=== PATIENT | female | born 1985 | race African-American/Black ===

== ENCOUNTER 2019-08-02 11:33 | Emergency (ER) | payer OTHER, SELFPAY ==
--- NOTE | ~2019-08-02 | XR_ITS ---
EXAMINATION: XR chest 2V DATE: 08/02/2019 11:59 INDICATION: Mid chest pain and shortness of breath, history of pulmonary embolism TECHNIQUE: PA and lateral views of the chest are obtained. COMPARISON: 01/16/2019 FINDINGS: The lungs are free of acute opacities. Linear opacity in the right lung base could reflect atelectasis or scarring. There is no pleural effusion or pneumothorax. The cardiomediastinal silhouet te is normal. The visualized osseous structures are unremarkable. There has been interval insertion o f an inferior vena cava filter. IMPRESSION: 1. No acute cardiopulmonary abnormality. Reviewed, dictated and finalized at location A. ER ROOM HELPER
--- NOTE | ~2019-08-02 | CT_ITS ---
EXAMINATION: CTA chest PE protocol DATE: 08/02/2019 14:59 INDICATION: Pleuritic chest pain. TECHNIQUE: Computed tomography angiography (CTA) of the chest was performed with 100 mL Omnipaque-350 intravenous contrast timed to evaluate the pulmonary arteries. Coronal maximum intensity projection 3D-reconstructions were created by the technologist. Automated exposure control and iterative reconst ruction technique were employed. The dose-length product was 407.56 mGy-cm. COMPARISON: Chest CT 01/11/2019 FINDINGS: The lungs demonstrate mild atelectasis. There are trace pleural effusions. There are nodule s in the thyroid measuring up to 11 mm. The heart size is normal. No pericardial effusion. There is n o pulmonary embolus. There is thoracic dextroscoliosis. IMPRESSION: 1. No pulmonary embolus. 2. Thyroid nodules. Thyroid ultrasound is recommended for risk stratification. Reviewed, dictated and finalized at location A. N TENDER
--- NOTE | 2019-08-02 11:38 | ECG_ITS ---
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
[2019-08-02 11:39] VITALS: BP 115/78; PULSE 94; RESP 16; TEMP 36.2; O2SAT 100
[2019-08-02 12:00] LABS: Basophils Absolute Auto 0.1 K/mm3 (0.0-0.1); Basophils Percent Auto 0.9 % (0.2-1.2); Eosinophils Absolute Auto 0.2 K/mm3 (0-0.3); Eosinophils Percent Auto 2.6 % (0-4.4); Hematocrit 34.4 % (37.0-47.0); Hemoglobin 10.7 g/dL (12.0-15.0); Immature Granulocyte Absolute 0.03 K/mm3 (0.00-0.031); Immature Granulocyte Percent A 0.5 % (0-0.5); Lymphocytes Absolute Auto 1.74 K/mm3 (0.9-3.2); Lymphocytes Percent Auto 26.6 % (18.3-44.2); Mean Corpuscular HGB Conc 31.1 g/dl (32-36); Mean Corpuscular Hemoglobin 25.4 pg (26-34); Mean Corpuscular Volume 81.5 fl (80-100); Mean Platelet Volume 8.7 fl (7.4-10.4); Monocytes Absolute Auto 0.4 K/mm3 (0.1-0.6); Monocytes Percent Auto 6.6 % (2.6-8.5); Neutrophils Absolute Auto 4.1 K/mm3 (1.3-6.7); Neutrophils Percent Auto 62.8 % (45.5-73.1); Platelet Count Result 538 k/mm3 (150-375); Red Blood Count 4.22 M/mm3 (4.2-5.4); Red Cell Distribution Width 18.9 % (11.5-14.5); White Blood Count 6.6 K/mm3 (4.5-10.0)
[2019-08-02 12:14] LABS: Blood Urea Nitrogen 10 mg/dL (7-17); Calcium 9.9 mg/dL (8.4-10.2); Carbon Dioxide 24 mmol/L (22-30); Chloride 99 mmol/L (98-107); Estimated CRCL calculation 96 ml/min; Estimated Glomerular Filt Rate > 60; Glucose 111 mg/dL (65-105); Potassium 4.1 mmol/L (3.4-5.0); Sodium 134 mmol/L (137-145)
[2019-08-02 13:01] LABS: D Dimer 2.17 ug/mL (<0.48)
[2019-08-02 13:12] LABS: Troponin I < 0.012 ng/mL (0.000-0.034)
[2019-08-02 13:46] VITALS: BP 118/70; PULSE 85; RESP 20; O2SAT 100
[2019-08-02 15:56] LABS: Troponin I < 0.012 ng/mL (0.000-0.034)
--- NOTE | 2019-08-02 16:08 | ED.SOB ---
HPI - SOB/Dyspnea General Chief Complaint: Shortness of Breath/Dyspnea Stated Complaint: sob, s/p hyst 07/17/19 Time Seen by Provider: 08/02/19 12:38 Source: patient Mode of arrival: ambulatory Limitations: no limitations History of Present Illness HPI Narrative: This is a 33 year old female that presents to the ER for chest pain since this morning. Reports sharp chest pain on the left side. Reports this is worse with breathing. Reports a history of PE for which she is still taking Lovenox. Reports she has missed some doses of Lovenox recently. Reports a recent abdominal hysterectomy. Also reports some shortness of breath. Denies fever, abdominal pain, nausea, vomiting, dysuria or hematuria. Related Data Home Medications Medication Instructions Recorded Confirmed enoxaparin [Lovenox] 80 mg SUBCUT BID 05/21/19 07/16/19 Iron Infusion 1 dose IV DAILY 07/10/19 07/16/19 ferrous sulfate 324 mg PO BID 07/10/19 07/16/19 Allergies Allergy/AdvReac Type Severity Reaction Status Date / Time No Known Allergies Allergy Verified 08/02/19 11:58 Review of Systems Review of Systems: Narrative: CONSTITUTIONAL: Denies fever CARDIOVASCULAR: Reports chest pain. Denies palpitations, or edema. RESPIRATORY: Reports dyspnea. Denies cough GASTROINTESTINAL: Denies abdominal pain, nausea, vomiting GENITOURINARY: Denies dysuria or hematuria. MUSCULOSKELETAL: Reports back pain, joint pain, and myalgia. All systems reviewed & are unremarkable except as noted in HPI and below PMFSH Past Medical History Medical History (Updated 08/02/19 @ 16:14 by Janet Bailey PA-C) Anemia due to blood loss Pulmonary embolism Pulmonary embolus Uterine fibroid Surgical History Surgical History (Updated 05/21/19 @ 18:12 by Chai Tuttle PA-C) Previous section Social History Social History (Updated 05/21/19 @ 18:12 by Chai Tuttle PA-C) Smoking status: Never smoker Second hand tobacco smoke exposure: No Alcohol intake: former Substance use: never Substance use type: does not use Gender identity (if verbalized by the patient): Female Spiritual care concerns: No Agree to blood products: Yes Exam Narrative: Exam Narrative: GENERAL: Well-appearing, well-nourished, and in no acute distress. HEAD: Normocephalic, atraumatic. EYES: EOMI. ENT: Nares clear, no rhinorrhea or epistaxis. Mucous membranes moist. Oropharynx without tonsillar hypertrophy exudate or other lesions. Bilateral TMs pearly webb non-bulging NECK: Supple. No adenopathy or masses. CHEST: Clear to auscultation. No respiratory distress. No wheezes rales or rhonchi. Tender to palpation of the mid anterior chest wall HEART: Regular rate and rhythm. No murmur heard. Normal peripheral pulses. ABDOMEN: Soft, nontender, nondistended, normal active bowel sounds. Incision well-healed without signs of infection EXTREMITIES: Normal range of motion. No edema. SKIN: Warm, dry, no rash. NEURO: No focal deficits. Alert and oriented x3. PSYCH: Normal mood and affect Course Vital Signs Vital signs: Vital Signs Temperature 97.2 F L 08/02/19 11:39 Pulse Rate 94 08/02/19 11:39 Respiratory Rate 16 08/02/19 11:39 Blood Pressure 115/78 08/02/19 11:39 Pulse Oximetry 100 08/02/19 11:39 Temperature 97.2 F L 08/02/19 11:39 Pulse Rate 85 08/02/19 13:46 Respiratory Rate 20 08/02/19 13:46 Blood Pressure 118/70 08/02/19 13:46 Pulse Oximetry 100 08/02/19 13:46 MDM - SOB/Dyspnea MDM Narrative Medical decision making narrative: Patient presents the emergency department for pleuritic chest pain this morning. Reports history of recent PE. Reports she takes Lovenox for this, but has missed some doses recently. Reports a recent abdominal hysterectomy. Patient is afebrile and nontoxic-appearing. She reports relief of pain after Tylenol. CBC without leukocytosis. Mild anemia with hemoglobin of 10.7. Metabolic panel without acute changes.
[2019-08-02 16:36] VITALS: BP 132/80; PULSE 80; RESP 18; O2SAT 98
== END 2019-08-02 16:37 | disposition home or self-care (01) ==
PROVIDERS: General Practice; Physician Assistant; Emergency Provider Emergency Medicine; PCP Internal Medicine Infectious Disease
DX: R07.89 Other chest pain (principal); E04.1 Nontoxic single thyroid nodule; Z86.711 Personal history of pulmonary embolism; D50.0 Iron deficiency anemia secondary to blood loss (chronic); Z87.891 Personal history of nicotine dependence; Z79.02 Long term (current) use of antithrombotics/antiplatelets; R94.31 Abnormal electrocardiogram [ECG] [EKG]
CPT/HCPCS: 36415; 71046; 71275; 80048; 84484; 85025; 85380; 93005; 96365; 99284; J0131; Q9967

== ENCOUNTER 2020-01-24 13:00 | Outpatient (CLI) | payer OTHER, SELFPAY ==
--- NOTE | ~2020-01-24 | CT_ITS ---
EXAMINATION: CTA chest PE protocol DATE: 01/24/2020 13:39 INDICATION: Chest pain, shortness of breath. History of pulmonary embolus. Covid infection, November 2019 TECHNIQUE: Computed tomography angiography (CTA) of the chest was performed with 100 mL Omnipaque-350 intravenous contrast timed to evaluate the pulmonary arteries. Coronal maximum intensity projection 3D-reconstructions were created by the technologist. Automated exposure control and iterative reconst ruction technique were employed. Exam dose: 565.33 mGy-cm total exam DLP. COMPARISON: 08/02/2019 CT pulmonary scan FINDINGS: There is moderate enhancement of the pulmonary arteries, sufficient for diagnostic purposes . No pulmonary embolism is detected. No thoracic aortic aneurysm or dissection. Cardiomegaly. No pericardial or pleural effusion. No hilar or mediastinal mass lesion or lymphadenopathy. No pulmonary infiltrate or consolidation or pulmonary mass lesion. Included skeletal structures are unremarkable. IMPRESSION: No evidence of pulmonary embolism Reviewed, dictated and finalized at Location A. Reviewed, dictated and finalized at location B.
== END 2020-01-24 13:01 | disposition home or self-care (01) ==
LOC: ANHIMG 13:01
PROVIDERS: PCP Internal Medicine Infectious Disease; Visit Provider Internal Medicine Infectious Disease
DX: Z86.711 Personal history of pulmonary embolism (principal)
CPT/HCPCS: 71275; Q9967

== ENCOUNTER 2021-05-01 09:26 | Emergency (ER) | payer OTHER, SELFPAY ==
[2021-05-01] VITALS (21 sets, daily range): BP systolic 128–156; BP diastolic 93–117; PULSE 74; RESP 17; TEMP 36.7; O2SAT 96–100
--- NOTE | ~2021-05-01 | CT_ITS ---
EXAMINATION: CT abdomen pelvis w con EXAM DATE: 05/01/2021 11:10 INDICATION: Left sided abd pain r/o diverticulitis. TECHNIQUE: Spiral CT of the abdomen and pelvis was performed following intravenous injection of 100 m L Omnipaque 350. Axial, coronal and sagittal images of the abdomen and pelvis were reviewed. The do se-length product (DLP) for this examination was 812.21 mGy-cm. The exposure was tailored according to patient size (auto mA exposure control), and iterative reconstruction (ASIR) was used as additiona l dose reduction technique. There is no prior study for comparison. FINDINGS: The liver, spleen, adrenal glands and pancreas are unremarkable. Gallbladder is unremarkab le. No biliary obstruction. Portal and splenic veins are patent. Kidneys enhance symmetrically. T here is no hydronephrosis. The uterus is not identified and has likely been surgically resected. Le ft ovary measures about 4 cm, within normal size limits with several cystic regions or possibly hydro salpinx. The bladder is unremarkable. There is no retroperitoneal or pelvic lymphadenopathy. IVC f ilter. The appendix is normal. The stomach and small bowel are unremarkable. There is expected amount of c olonic stool. No free intraperitoneal gas. The heart is normal in size. There are no pericardial or pleural effusions. The lung bases are unremarkable. Mild thoracolumbar levoscoliosis. IMPRESSION: Cystic left ovarian appearance, could be physiologic, hemorrhagic cysts, or hydrosalpinx. Reviewed, dictated and finalized at location A. IMPRESSION: Cystic left ovarian appearance, could be physiologic, hemorrhagic c ysts, or hydrosalpinx.
[2021-05-01] MEDS: SODIUM CHLORIDE 0.9% IV 1,000 ML 999 ML IV CONT (10:17)
--- NOTE | 2021-05-01 10:18 | ED.ABDPAIN ---
HPI - Abdominal Pain General Chief Complaint: Abdominal Pain Stated Complaint: abd pain Time Seen by Provider: 05/01/21 09:33 Source: patient History of Present Illness HPI narrative: Patient presents with abdominal pain that started last night but this morning it seemed to be worse so she wanted to come to the ER for evaluation. Pain is primarily on the left side achy, constant, worse with walking around, no radiation. Denies any nausea vomiting or diarrhea. She denies any urinary symptoms. She denies any fevers. Related Data Home Medications Medication Instructions Recorded Confirmed enoxaparin [Lovenox] 80 mg SUBCUT BID 05/21/19 07/16/19 Iron Infusion 1 dose IV DAILY 07/10/19 07/16/19 ferrous sulfate 324 mg PO BID 07/10/19 07/16/19 Allergies Allergy/AdvReac Type Severity Reaction Status Date / Time No Known Allergies Allergy Verified 08/02/19 11:58 Review of Systems Review of Systems: CONSTITUTIONAL: Denies fever, chills, or sweats. EYES: Denies visual changes, redness, or discharge. ENT: Denies rhinorrhea, congestion, sore throat, or otalgia. CARDIOVASCULAR: Denies chest pain, palpitations, or edema. RESPIRATORY: Denies cough or dyspnea. GASTROINTESTINAL: Denies nausea, vomiting, or diarrhea. GENITOURINARY: Denies dysuria or hematuria. SKIN: Denies rash or itching. MUSCULOSKELETAL: Denies back pain, joint pain, or myalgia. NEUROLOGIC: Denies headache, numbness, dizziness, or weakness. PSYCHIATRIC: Denies anxiety or depression. All systems reviewed & are unremarkable except as noted in HPI and below PMFSH Past Medical History Medical History Anemia due to blood loss Pulmonary embolism Pulmonary embolus Uterine fibroid Surgical History Surgical History Previous section Family History Family History Father Diabetes mellitus Social History Social History Smoking status: Never smoker Second hand tobacco smoke exposure: No Alcohol intake: former Substance use: never Substance use type: does not use Gender identity (if verbalized by the patient): Female Spiritual care concerns: No Agree to blood products: Yes Exam Narrative: GENERAL: Well-appearing, well-nourished, and in no acute distress. HEAD: Normocephalic, atraumatic. EYES: PERRLA and EOMI. ENT: Nares clear, no rhinorrhea or epistaxis. Mucous membranes moist. NECK: Supple. No masses. No JVD ABDOMEN: Moderate tenderness in the left abdomen no rebound or guarding soft, nondistended, normal active bowel sounds. EXTREMITIES: Normal range of motion. No edema. SKIN: Warm, dry, no rash. NEURO: No focal deficits. Alert and oriented x3. PSYCH: Normal mood and affect. Course Reevaluation(s) Reevaluation #1: Patient reports feeling improved. Labs and reviewed with patient. Patient comfortable outpatient plan. Date: 05/01/21 Time: 13:36 Vital Signs Vital signs: Vital Signs Pulse Oximetry 97 05/01/21 10:20 Temperature 36.7 C 05/01/21 10:21 Pulse Rate 74 05/01/21 10:21 Respiratory Rate 17 05/01/21 10:21 Blood Pressure 131/115 H 05/01/21 13:46 Pulse Oximetry 99 05/01/21 13:46 MDM - Abdominal Pain MDM Narrative Medical decision making narrative: H&P as above, vss, pt looks clinically well, exam with left-sided abdominal pain, labs clinically unremarkable, img with cystic left ovary, additional labs/img considered, symptomatic relief available as needed, on reevaluation pt continues to looks clinically well. Symptoms may be related to patient's left ovary versus early viral process, dns severe sepsis, severe dehydration, acute abdomen. plan to tx/monitor as op w/ NIGHT TIME NANNY f/u findings/plan discussed with pt, pt agree/comfortable with plan, return precautions given. Patient has establish
[2021-05-01 10:31] LABS: Add Urine Microscopic? YES; Appearance Urine Cloudy (Clear); Bilirubin Urine Negative (Negative); Blood Urine Negative (Negative); Color Urine Yellow (Yellow); Glucose Urine UA Negative (Negative); Ketones Urine Negative (Negative); Leukocyte Esterase Ur Trace LEU/UL (Negative); Mucus Urine Rare /lpf; Nitrate Urine Negative (Negative); Protein Urine Negative (Negative); Specific Grav Ur 1.027 (1.001-1.035); Squamous Epithelial Cell Urine Many /hpf (Few); Urobilinogen Urine Negative mg/dL (<2.0)
[2021-05-01 10:49] LABS: Basophils Percent Auto 0.5 % (0.2-1.2); Eosinophils Absolute Auto 0.1 K/mm3 (0-0.3); Eosinophils Percent Auto 2.3 % (0-4.4); Hematocrit 38.5 % (37.0-47.0); Hemoglobin 13.4 g/dL (12.0-15.0); Lymphocytes Percent Auto 43.1 % (18.3-44.2); Mean Corpuscular HGB Conc 34.8 g/dl (32-36); Mean Corpuscular Hemoglobin 28.9 pg (26-34); Mean Corpuscular Volume 83.2 fl (80-100); Mean Platelet Volume 9.1 fl (7.4-10.4); Monocytes Absolute Auto 0.3 K/mm3 (0.1-0.6); Monocytes Percent Auto 6.9 % (2.6-8.5); Neutrophils Absolute Auto 1.9 K/mm3 (1.3-6.7); Neutrophils Percent Auto 47.2 % (45.5-73.1); Platelet Count Result 235 k/mm3 (150-375); Red Blood Count 4.63 M/mm3 (4.2-5.4); Red Cell Distribution Width 12.8 % (11.5-14.5); White Blood Count 3.9 K/mm3 (4.5-10.0)
[2021-05-01 10:53] LABS: Alanine Aminotransferase 55 U/L (4-35); Albumin Level 4.1 g/dL (3.5-5.1); Alkaline Phosphatase 70 U/L (38-126); Anion Gap 10 mmol/L (8-16); Aspartate Amino Transferase 38 U/L (14-36); Bilirubin,Total 0.6 mg/dL (0.2-1.3); Blood Urea Nitrogen 11 mg/dL (7-17); Calcium 9.2 mg/dL (8.4-10.2); Carbon Dioxide 24 mmol/L (22-30); Chloride 104 mmol/L (98-107); Estimated CRCL calculation 94 ml/min; Estimated Glomerular Filt Rate > 60; Glucose 106 mg/dL (65-110); Lipase 91 U/L (23-300); Potassium 4.1 mmol/L (3.4-5.0); Sodium 138 mmol/L (137-145)
== END 2021-05-01 14:00 | disposition home or self-care (01) ==
PROVIDERS: Emergency Provider Emergency Medicine; PCP Internal Medicine Infectious Disease
DX: R10.9 Unspecified abdominal pain (principal); R11.0 Nausea; Z86.711 Personal history of pulmonary embolism; D50.0 Iron deficiency anemia secondary to blood loss (chronic); R93.89 Abnormal findings on diagnostic imaging of other specified body structures
CPT/HCPCS: 36415; 74177; 80053; 81001; 83690; 85025; 96361; 96374; 99284; J0131; J7030; Q9967

== ENCOUNTER 2021-06-23 23:45 | Inpatient (IN) | payer OTHER, SELFPAY ==
--- NOTE | ~2021-06-23 | CT_ITS ---
EXAMINATION: CT abdomen pelvis w con DATE: 06/24/2021 03:28 INDICATION: Left lower quadrant abdominal pain. TECHNIQUE: Computed tomography (CT) of the abdomen and pelvis was performed with 100 mL Omnipaque 350 intravenous contrast. Automated exposure control and iterative reconstruction technique were employe d. The dose-length product was 781.98 mGy-cm. COMPARISON: CT abdomen and pelvis 05/01/2021 FINDINGS: The visualized portions of the lung bases demonstrate mild atelectasis. No pleural effusion . The heart size is normal. No pericardial effusion. The liver, gallbladder, spleen, pancreas, and ad renal glands are normal. There is a filter in the inferior vena cava. There are cysts in right kidney measuring up to 8 mm. There is a delay left-sided contrast nephrogram. There is asymmetric edema daniel und left kidney. There is mild left hydronephrosis and hydroureter. There is a 9.4 x 6.2 x 5.4 cm mas s of heterogeneous attenuation in left adnexa. There are no dilated loops of bowel. The appendix is n ormal. There are no pathologically enlarged lymph nodes. There is no free intraperitoneal fluid. Ther e is an umbilical hernia containing fat. There is mild lumbar spondylosis. IMPRESSION: 1. 9.4 x 6.2 x 5.4 cm mass in left adnexa, worsened from 05/01/21. The differential diagnosis include s hemorrhagic cyst, neoplasm, and torsion. Surgical evaluation is recommended. 2. Mild left hydronephrosis and hydroureter secondary to mass effect from the left adnexal mass. Reviewed, dictated and finalized at location A. LINING DIPPER IMPRESSION: 1. 9.4 x 6.2 x 5.4 cm mass in left adnexa, worsened from 05/01/21. The differen tial diagnosis includes hemorrhagic cyst, neoplasm, and torsion. Surgical evalu ation is recommended. 2. Mild left hydronephrosis and hydroureter secondary to mass effect from the l eft adnexal mass.
--- NOTE | ~2021-06-23 | US_ITS ---
EXAMINATION: US pelvic limited DATE: 06/24/2021 05:52 INDICATION: Pelvic pain. TECHNIQUE: Multiple transabdominal sonographic images of the pelvis were obtained. COMPARISON: CT abdomen and pelvis 06/24/2021, 05/01/2021 FINDINGS: The uterus and right ovary are absent. There is no free fluid in the pelvis. There is a 7.8 x 6.4 x 6 .1 cm mass in left adnexa. There is vascular flow at the margin of the mass. IMPRESSION: 1. 7.8 x 6.4 x 6.1 cm mass in left adnexa, worsened from 05/01/2021. The differential diagnosis inclu heidi hemorrhagic cyst, neoplasm, and ovarian torsion. Surgical evaluation is recommended. Reviewed, dictated and finalized at location A. SH PAINTER IMPRESSION: 1. 7.8 x 6.4 x 6.1 cm mass in left adnexa, worsened from 05/01/2021. The differ ential diagnosis includes hemorrhagic cyst, neoplasm, and ovarian torsion. Surg ical evaluation is recommended.
[2021-06-23 23:47] VITALS: BP 141/102; PULSE 93; RESP 20; TEMP 36.8; O2SAT 95
[2021-06-24] VITALS (17 sets, daily range): BP systolic 119–156; BP diastolic 73–107; PULSE 67–89; RESP 14–28; TEMP 36.4–37.1; O2SAT 92–100
--- NOTE | 2021-06-24 01:44 | ED.ABDPAIN ---
HPI - Abdominal Pain General Chief Complaint: Abdominal Pain Stated Complaint: abd pain Time Seen by Provider: 06/24/21 01:43 Source: patient Mode of arrival: ambulatory Limitations: no limitations History of Present Illness HPI narrative: Patient is a 35-year-old female complaining of abdominal pain, mid abdominal area, 8 out of 10, aching, nonradiating started today. Patient denies any chest pain, shortness of breath, nausea, vomiting, diarrhea, urinary symptoms, fever or chills. Patient seen here approximately 1-1/2-month ago for abdominal pain, had labs and CT scan of abdomen pelvis done, was diagnosed with an ovarian cyst. Related Data Home Medications Medication Instructions Recorded Confirmed enoxaparin [Lovenox] 80 mg SUBCUT BID 05/21/19 07/16/19 Iron Infusion 1 dose IV DAILY 07/10/19 07/16/19 ferrous sulfate 324 mg PO BID 07/10/19 07/16/19 Allergies Allergy/AdvReac Type Severity Reaction Status Date / Time No Known Allergies Allergy Verified 06/24/21 01:26 Review of Systems Review of Systems: All systems reviewed & are unremarkable except as noted in HPI and below Constitutional: Constitutional: Denies body ache(s), Denies chills, Denies excessive sweating, Denies fatigue, Denies fever(s), Denies headache(s), Denies lethargy, Denies malaise, Denies weakness and Denies weight loss Eyes: Eyes: Denies blurry vision, Denies change in vision and Denies loss of vision ENT: Denies dizziness, Denies ear discharge, Denies headache(s), Denies lip swelling, Denies epistaxis, Denies nasal congestion, Denies neck pain, Denies throat swelling and Denies tongue swelling Cardiovascular: Cardiovascular: Denies chest pain, Denies chest pain at rest, Denies chest pain with activity, Denies diaphoresis, Denies rapid heart rate, Denies edema, Denies irregular heart rhythm, Denies lightheadedness, Denies palpitations, Denies dyspnea and Denies dyspnea on exertion Respiratory: Respiratory: Denies chest congestion, Denies cough, Denies hemoptysis, Denies dyspnea and Denies dyspnea on exertion Gastrointestinal: Gastrointestinal: Denies melena, Denies hematochezia, Denies diarrhea, Denies nausea, Denies vomiting and Denies hematemesis Musculoskeletal: Musculoskeletal: Denies abnormal gait, Denies deformity, Denies joint swelling, Denies limited range of motion, Denies neck pain and Denies numbness Neurologic: Denies Abnormal speech present, Denies abnormal gait, Denies confusion, Denies dizziness, Denies headache(s), Denies focal weakness, Denies loss of vision, Denies numbness, Denies Other visual disturbances, Denies Sensory deficit (Neuro) and Denies weakness Psychiatric: Psychiatric: Denies confusion, Denies depression, Denies auditory hallucinations, Denies homicidal ideation and Denies suicidal ideation Endocrine: Endocrine: Denies cold intolerance, Denies excessive sweating, Denies fatigue, Denies heat intolerance and Denies palpitations Hematologic/Lymphatic: Hematologic/Lymphatic: Denies easy bleeding and Denies easy bruising Allergic/Immunologic: Allergic/Immunologic: Denies lip swelling, Denies throat swelling and Denies tongue swelling PMFSH Past Medical History Medical History Anemia due to blood loss Pulmonary embolism Pulmonary embolus Uterine fibroid Surgical History Surgical History Previous section Family History Family History Father Diabetes mellitus Social History Social History Smoking status: Never smoker Second hand tobacco smoke exposure: No Alcohol intake: former Substance use: never Substance use type: does not use Gender identity (if verbalized by the patient): Female Spiritual care concerns: No Agree to blood products: Yes Exam Const: General:
[2021-06-24] MEDS: KETOROLAC 30 MG/ML VIAL (*BKC) IV PUSH ×3 (02:10→22:32)
[2021-06-24] MEDS: HYDROcodone/acetaminophen (*CRX) 5-325 MG TABLET 1 TAB PO (02:18)
[2021-06-24 02:19] LABS: Basophils Percent Auto 0.3 % (0.2-1.2); Eosinophils Absolute Auto 0.1 K/mm3 (0-0.3); Hematocrit 36.8 % (37.0-47.0); Hemoglobin 13.1 g/dL (12.0-15.0); Immature Granulocyte Absolute 0.01 K/mm3 (0.00-0.031); Immature Granulocyte Percent A 0.2 % (0-0.5); Lymphocytes Absolute Auto 1.46 K/mm3 (0.9-3.2); Mean Corpuscular HGB Conc 35.6 g/dl (32-36); Mean Corpuscular Hemoglobin 28.3 pg (26-34); Mean Corpuscular Volume 79.5 fl (80-100); Monocytes Absolute Auto 0.4 K/mm3 (0.1-0.6); Monocytes Percent Auto 5.7 % (2.6-8.5); Neutrophils Absolute Auto 4.2 K/mm3 (1.3-6.7); Neutrophils Percent Auto 68.8 % (45.5-73.1); Platelet Count Result 235 k/mm3 (150-375); Red Blood Count 4.63 M/mm3 (4.2-5.4); Red Cell Distribution Width 12.7 % (11.5-14.5); White Blood Count 6.1 K/mm3 (4.5-10.0)
[2021-06-24 02:24] LABS: Add Urine Microscopic? YES; Appearance Urine Clear (Clear); Bilirubin Urine Negative (Negative); Blood Urine 2+ (Negative); Color Urine Straw (Yellow); Glucose Urine UA Negative (Negative); Ketones Urine Negative (Negative); Leukocyte Esterase Ur Negative LEU/UL (Negative); Mucus Urine Rare /lpf; Nitrate Urine Negative (Negative); Protein Urine Negative (Negative); Specific Grav Ur 1.013 (1.001-1.035); Squamous Epithelial Cell Urine Occasional /hpf (Few); Urobilinogen Urine Negative mg/dL (<2.0); WBC Urine 0-3 /hpf
[2021-06-24 02:32] LABS: Alanine Aminotransferase 26 U/L (4-35); Albumin Level 4.1 g/dL (3.5-5.1); Alkaline Phosphatase 69 U/L (38-126); Anion Gap 9 mmol/L (8-16); Aspartate Amino Transferase 29 U/L (14-36); Bilirubin,Total 0.7 mg/dL (0.2-1.3); Blood Urea Nitrogen 10 mg/dL (7-17); Calcium 8.9 mg/dL (8.4-10.2); Carbon Dioxide 23 mmol/L (22-30); Chloride 102 mmol/L (98-107); Estimated CRCL calculation 94 ml/min; Estimated Glomerular Filt Rate > 60; Glucose 118 mg/dL (65-110); Lipase 51 U/L (23-300); Sodium 134 mmol/L (137-145)
[2021-06-24] MEDS: HYDROmorphone HCL INJ (*CRX) 1 MG/ML SYR IV PUSH (04:55)
[2021-06-24] MEDS: PROMETHAZINE HCL 25 MG/ML AMPUL 12.5 MG IV PUSH (04:58)
[2021-06-24] MEDS: ONDANSETRON INJ 4 MG/2 ML VIAL IV PUSH (08:22)
[2021-06-24] MEDS: LACTATED RINGERS 1,000 ML 999 ML IV CONT (08:22)
[2021-06-24] MEDS: HYDROmorphone HCL INJ (*CRX) 1 MG/ML SYR 0.5 MG IV PUSH ×2 (08:53→12:31)
[2021-06-24] MEDS: SODIUM CHLORIDE 0.9% IV 1,000 ML 125 ML IV CONT ×2 (08:55→12:32)
--- NOTE | 2021-06-24 09:43 | PC.NURSE ---
This nurse attempted to give report to the 2nd Floor OB, but was told the RN would call back in 5 minutes after she discharged a pt.
--- NOTE | 2021-06-24 10:02 | PC.NURSE ---
This patient, Giles Rose, was received from Emergency Dept. on 06/24/21 at 1002. Patient/family oriented to unit policies and routines
[2021-06-24] MEDS: LACTATED RINGERS 1,000 ML 30 ML IV CONT ×2 (15:55→19:49)
--- NOTE | 2021-06-24 16:02 | WPDANESEPPF ---
Anes - Initial Pre Proc Eval Procedure: Operation Date: 06/24/21 17:00 Proposed Procedures p Laparoscopic Left Ovarian Cystectomy, Possible Left Salpingo-Oophorectomy - Anitha Ludwig MD Date/Time: 06/24/21 16:02 Surgeon: Anitha Ludwig MD Pre Op Diagnosis: left adnexal mass,intractable pain Patient Data Age: 35 Gender: F Height: 1.52 m Weight: 85.9 kg Last Vital Signs Temp 36.4 C 06/24/21 11:00 Pulse 74 06/24/21 11:00 Resp 18 06/24/21 11:00 BP 129/92 H 06/24/21 11:00 Pulse Ox 96 06/24/21 09:54 Allergies Allergy/AdvReac Type Severity Reaction Status Date / Time No Known Allergies Allergy Verified 06/24/21 01:26 Home Medications Medication Instructions Recorded Confirmed Type enoxaparin [Lovenox] 80 mg SUBCUT BID 05/21/19 07/16/19 History Iron Infusion 1 dose IV DAILY 07/10/19 07/16/19 History ferrous sulfate 324 mg PO BID 07/10/19 07/16/19 History hydrocodone-acetaminophen 1 - 2 tablet PO Q4H PRN #25 tablet 07/21/19 Rx diazepam 5 mg PO BID PRN #10 tablet 08/02/19 Rx ondansetron HCl [Zofran] 4 mg PO Q8H PRN #10 tablet 05/01/21 Rx tramadol 50 mg PO Q6H PRN #12 tablet 06/24/21 Rx Laboratory Tests 06/24/21 06/24/21 06/24/21 02:13 02:13 02:13 WBC 6.1 K/mm3 K/mm3 (4.5-10.0) RBC 4.63 M/mm3 M/mm3 (4.2-5.4) Hgb 13.1 g/dL g/dL (12.0-15.0) Hct 36.8 % L % (37.0-47.0) MCV 79.5 fl L fl (80-100) MCH 28.3 pg pg (26-34) MCHC 35.6 g/dl g/dl (32-36) RDW 12.7 % % (11.5-14.5) Plt Count 235 k/mm3 k/mm3 (150-375) MPV 9.0 fl fl (7.4-10.4) Immature Gran % (Auto) 0.2 % % (0-0.5) Neut % (Auto) 68.8 % % (45.5-73.1) Lymph % (Auto) 24.0 % % (18.3-44.2) [place] % (Auto) 5.7 % % (2.6-8.5) Eos % (Auto) 1.0 % % (0-4.4) Baso % (Auto) 0.3 % % (0.2-1.2) Lymph # (Auto) 1.46 K/mm3 K/mm3 (0.9-3.2) [place] # (Auto) 0.4 K/mm3 K/mm3 (0.1-0.6) Eos # (Auto) 0.1 K/mm3 K/mm3 (0-0.3) Baso # (Auto) 0.0 K/mm3 K/mm3 (0.0-0.1) Abs Immat Gran (auto) 0.01 K/mm3 K/mm3 (0.00-0.031) Absolute Neuts (auto) 4.2 K/mm3 K/mm3 (1.3-6.7) Absolute Nucleated RBC 0.0 K/mm3 K/mm3 (0.0-0.012) Nucleated RBC % 0.0 % % (0.0-0.2) Sodium 134 mmol/L L mmol/L (137-145) Potassium 4.0 mmol/L mmol/L (3.4-5.0) Chloride 102 mmol/L mmol/L (98-107) Carbon Dioxide 23 mmol/L mmol/L (22-30) Anion Gap 9 mmol/L mmol/L (8-16) BUN 10 mg/dL mg/dL (7-17) Creatinine 0.70 mg/dL mg/dL (0.7-1.0) Estim Creat Clear Calc 94 ml/min ml/min Estimated GFR > 60 (59 - ) Glucose 118 mg/dL H mg/dL (65-110) Calcium 8.9 mg/dL mg/dL (8.4-10.2) Total Bilirubin 0.7 mg/dL mg/dL (0.2-1.3) AST 29 U/L U/L (14-36) ALT 26 U/L U/L (4-35) Alkaline Phosphatase 69 U/L U/L (38-126) Total Protein 7.0 g/dL g/dL (6.3-8.2) Albumin 4.1 g/dL g/dL (3.5-5.1) Lipase 51 U/L U/L (23-300) CA 125 Antigen Urine Color Straw (Yellow) Urine Appearance Clear (Clear) Urine pH 7.0 (5.0-9.0) Ur Specific [place] 1.013 (1.001-1.035) Urine Protein Negative mg/dL mg/dL (Negative) Urine Glucose (UA) Negative mg/dL mg/dL (Negative) Urine Ketones Negative mg/dL mg/dL (Negative) Ur Blood (Man) 2+ H (Negative) Urine Nitrate Negative (Negative) Urine Bilirubin Negative (Negative) Urine Urobilinogen Negative mg/dL mg/dL (<2.0) Leukocyte Esterase Rfl Negative ELLE/UL ELLE/UL (Negative) Urine RBC 6-10 /hpf H /hpf (0-2) Urine WBC 0-3 /hpf /hpf Ur Squamous Epith C
--- NOTE | 2021-06-24 16:41 | PM.IMHP ---
H&P: HPI History of Present Illness Date/Time: 06/24/21 16:41 Chief Complaint: abdominal pain Narrative: Giles is a 35yo who presented to the ED with abdominal pain today. US found a 8x6cm left adnexal mass. She had small left ovarian cysts end of April. She has history of PE on OCP with IVC filter in. Has had ROCKY 2 years ago for large fibroids. She is uncertain if her right ovary was removed or if she still has it. Pain was 8/10 and still requiring dilaudid. Now pain 4/10 with pain meds. Review of Systems Review of Systems: All systems reviewed & are unremarkable except as noted in HPI and below PMFSH Past Medical History Medical History (Updated 06/24/21 @ 16:48 by Anitha Ludwig MD) Anemia due to blood loss Obesity Pulmonary embolism Pulmonary embolus Uterine fibroid Surgical History Surgical History (Updated 06/24/21 @ 16:03 by Dylon Delgadillo MD) H/O: hysterectomy Previous section Family History Family History Father Diabetes mellitus Social History Social History Smoking status: Never smoker Second hand tobacco smoke exposure: No Alcohol intake: former Substance use: never Substance use type: does not use Gender identity (if verbalized by the patient): Female Spiritual care concerns: No Agree to blood products: Yes Meds Home Medications and Allergies Home Medications Medication Instructions Recorded Confirmed Type enoxaparin [Lovenox] 80 mg SUBCUT BID 05/21/19 07/16/19 History Iron Infusion 1 dose IV DAILY 07/10/19 07/16/19 History ferrous sulfate 324 mg PO BID 07/10/19 07/16/19 History hydrocodone-acetaminophen 1 - 2 tablet PO Q4H PRN #25 tablet 07/21/19 Rx diazepam 5 mg PO BID PRN #10 tablet 08/02/19 Rx ondansetron HCl [Zofran] 4 mg PO Q8H PRN #10 tablet 05/01/21 Rx tramadol 50 mg PO Q6H PRN #12 tablet 06/24/21 Rx Allergies Allergy/AdvReac Type Severity Reaction Status Date / Time No Known Allergies Allergy Verified 06/24/21 01:26 Vital Signs Vital Signs - 24 hr 06/23/21 23:47 06/24/21 01:24 06/24/21 02:20 Temperature 98.3 F Pulse Rate 93 83 83 Respiratory Rate 20 20 18 Blood Pressure 141/102 H 139/94 H 143/107 H Pulse Oximetry 95 99 99 06/24/21 02:31 06/24/21 03:48 06/24/21 04:53 Temperature Pulse Rate 76 86 80 Respiratory Rate 18 28 H 14 Blood Pressure 120/73 145/92 H 140/86 Pulse Oximetry 98 96 98 06/24/21 05:54 06/24/21 06:00 06/24/21 08:51 Temperature 98.4 F Pulse Rate 70 67 76 Respiratory Rate 18 18 18 Blood Pressure 129/81 128/82 155/97 H Pulse Oximetry 97 97 98 06/24/21 09:54 06/24/21 10:30 06/24/21 11:00 Temperature 97.6 F 97.6 F Pulse Rate 87 75 74 Respiratory Rate 16 18 18 Blood Pressure 156/101 H 129/92 H Pulse Oximetry 96 06/24/21 16:16 Temperature 97.8 F Pulse Rate 67 Respiratory Rate 20 Blood Pressure 131/93 H Pulse Oximetry 98 Exam Const: General: uncomfortable Resp: Effort & Inspection: normal respiratory effort Auscultation: clear to auscultation bilaterally Cardio: Rate: regular rate Rhythm: regular rhythm GI: GI Palp: Yes Soft to palpation and Yes Tenderness to palpation present (GI) Other: moderate tenderness especially periumbilical and left lower quad. no rebound or guarding. keloid vertical incision Extrem: General: normal to inspection H&P: Results Labs Labs: Short CBC 06/24/21 Range/Units 02:13 WBC 6.1 (4.5-10.0) K/mm3 Hgb 13.1 (12.0-15.0) g/dL Hct 36.8 L (37.0-47.0) % Plt Count 235 (150-375) k/mm3 BMP 06/24/21 02:13 Sodium 134 L Potassium 4.0 Chloride 102 Carbon Dioxide 23 BUN 10 Creatinine 0.70 Glucose 118 H Calcium 8.9 Liver Function 06/24/21 Range/Units 02:13 Total Bilirubin 0.7 (0.2-1.3) mg/dL AST 29 (14-36) U/L ALT 26 (4-35) U/L Alkaline Phosphatase 69 (38-126)
--- NOTE | 2021-06-24 16:52 | WPDHPUPDATE1 ---
History and Physical Update Update Date/Time: 06/24/21 16:52 History and Physical has been reviewed, including an updated exam of the patient. There are NO changes in the patient's condition. Risks, benefits, and alternatives have been discussed and questions answered. Patient agrees to proceed with procedure.
[2021-06-24] MEDS: BUPIVACAINE/EPINEPHRINE 0.25% 10 ML VIAL INFILTRATE (16:54)
[2021-06-24] MEDS: ceFAZolin 2 GM/D5W 50 ML 2 GM/50 ML BAG IVPB (17:06)
--- NOTE | 2021-06-24 17:21 | PC.NURSE ---
1542-To OR per bed. IV saline locked. Report given to pre-op. Pt. tolerated transfer well.
--- NOTE | 2021-06-24 19:23 | SUR.OPER ---
dr. johnson out at 191
--- NOTE | 2021-06-24 19:27 | W.PM.PROC2 ---
Procedure Note - Detailed Date of Procedure 06/24/21 Pre-op Diagnosis left adnexal mass,intractable pain Post-op Diagnosis same (and copious, dense bowel adhesions in the pelvis and of the left ovary in the pelvis.) Procedure Performed Laparoscopy, adhesiolysis, drainage of left ovarian cyst Laparotomy and remainder of surgery per Dr Cordoba Surgeon MD Dr. Adalid Tran Anesthesia general Indications Pt had large 8x6cm left ovarian cyst and intractable pain. prior ROCKY. Findings Copious dense adhesions of bowel to anterior abdominal wall and left pelvic sidewall. Adhesions of left ovary into the mid pelvis. serosanguinous fluid drained from the cyst. Right ovary not visualized. Description of Procedure The patient was taken to the OR and placed in dorthal lithotomy in [facility]. She received general anesthesia. A spongestick was placed in the vagina. A gonzalez catheter had previously been placed. She had received preoperative antibiotics. A 11mm subumbilical skin incision was made and using direct visualization, the trocar was inserted intraperitoneally. The abdomen was insufflated and the pelvis inspected. The findings are noted above. Using the ligasure and blunt traction, some of the less dense adhesions were able to be taken down in the pelvis and on the anterior abdominal wall. The ovary was still not able to be visualized. I determined the safest route would be to call in Dr Cordoba with general surgery to complete the adhesiolysis given the appearance of bowel in some of the adhesions. He kindly scrubbed in. Please see his operative report. Once the bowel was mobilized when the abdomen was open, the cyst was able to be palpated mid pelvis and drained. Dr. Cordoba closed. Estimated Blood Loss 10 (during laparoscopy) Pathology none sent (by this surgeon) Complications Other complications (see second operative report) Condition stable Disposition floor
--- NOTE | 2021-06-24 19:42 | W.PM.PROC2 ---
Procedure Note - Detailed Date of Procedure 06/24/21 Pre-op Diagnosis left adnexal mass,intractable pain, extensive lower abdominal adhesions Post-op Diagnosis other ( iatrogenic sigmoid colotomy, thermal injury) Procedure Performed laparoscopic converted to open lysis of adhesions, partial sigmoid colectomy with primary anastomosis Surgeon Nayla Cordoba MD Anesthesia general Indications intraoperative consultation obtained by Dr. Ludwig for extensive lower abdominal adhesions Findings full-thickness iatrogenic injury to sigmoid colon with thermal injury Description of Procedure I was called to see the patient intraoperatively by Dr. Ludwig for extensive lower abdominal adhesions. Upon entering the operating room, it was noted that 3 ports had already been placed and some lysis of adhesions had already been done. This point, I scrubbed in to assist with adhesiolysis. An approximately 30 minute adhesiolysis was done laparoscopically using both blunt dissection and sharp dissection with the LigaSure device. The patient had dense lower abdominal adhesions involving multiple loops of intestine. During the adhesiolysis in the left lower abdomen, there was noted to be a likely bowel injury. Given this, I immediately converted to an open procedure. This was done by opening the infraumbilical port caudally through her previous incision. Using very careful dissection and further adhesiolysis, I was able to identify the area of injury. I did free up the remaining adhesions as well. There was noted to be a full-thickness injury in the mid sigmoid colon. This injury measured approximately 2 x 1 cm and there was noted to be some thermal spread. Given this, the decision was made to resect this injured bowel. I freed up the lateral attachments of the sigmoid colon by taking down the white line of Toldt. Once I was able to mobilize this area, I picked my resection margin to encompass the injured bowel. I then resected the injured bowel with EMY 55 stapler both proximal and distal to the injury. The mesenteric attachments were taken down with the LigaSure device. The resected area measured approximately 6 cm and was sent to pathology for further review. I then performed a [id number] functional end-to-end anastomosis between the 2 ends of colon using a 55 EMY stapler followed by a Tx 60 stapler. The anastomosis was noted to be widely patent and tension-free. I then oversewed the staple line with interrupted 3-0 silk sutures. The ovarian cyst was identified and drained, please see Dr. Ludwig's operative report for details. I then proceeded to close the fascia with 0 PDS. The skin was closed with skin fran, including the 2 5 mm port sites. Sterile dressing was placed and the patient was then extubated in the operating room. She will be sent to the recovery room in stable condition. Estimated Blood Loss 150 (during laparoscopy) Drains No Packing No Pathology yes Complications Other complications ( Iatrogenic sigmoid colon injury) Condition stable Disposition PACU
--- NOTE | 2021-06-24 20:45 | PC.NURSE ---
Patient returned to Rm. 289 from PACU via bed. VSS.
[2021-06-25 00:10] VITALS: BP 118/81; PULSE 99; RESP 18; TEMP 36.6; O2SAT 94
[2021-06-25] MEDS: SODIUM CHLORIDE 0.9% IV 1,000 ML 125 ML IV CONT ×2 (00:18→09:32)
[2021-06-25] MEDS: ceFAZolin 2 GM/D5W 50 ML 2 GM/50 ML BAG IVPB ×2 (00:19→09:36)
[2021-06-25] MEDS: MORPHINE SULFATE (*CRX) 2 MG/ML INJ IV PUSH ×2 (03:07→09:33)
[2021-06-25 04:40] VITALS: BP 109/78; PULSE 100; RESP 20; TEMP 36.7; O2SAT 94
[2021-06-25] MEDS: KETOROLAC 30 MG/ML VIAL (*BKC) IV PUSH ×3 (04:52→21:49)
[2021-06-25 05:47] LABS: Hematocrit 33.3 % (37.0-47.0); Hemoglobin 11.8 g/dL (12.0-15.0); Mean Corpuscular HGB Conc 35.4 g/dl (32-36); Mean Corpuscular Hemoglobin 28.8 pg (26-34); Mean Corpuscular Volume 81.2 fl (80-100); Platelet Count Result 218 k/mm3 (150-375); Red Cell Distribution Width 12.6 % (11.5-14.5); White Blood Count 13.4 K/mm3 (4.5-10.0)
[2021-06-25 06:14] LABS: Alanine Aminotransferase 17 U/L (4-35); Albumin Level 3.2 g/dL (3.5-5.1); Alkaline Phosphatase 60 U/L (38-126); Anion Gap 8 mmol/L (8-16); Aspartate Amino Transferase 17 U/L (14-36); Bilirubin,Total 0.6 mg/dL (0.2-1.3); Blood Urea Nitrogen 4 mg/dL (7-17); Calcium 8.1 mg/dL (8.4-10.2); Carbon Dioxide 23 mmol/L (22-30); Chloride 103 mmol/L (98-107); Estimated CRCL calculation 110 ml/min; Estimated Glomerular Filt Rate > 60; Glucose 138 mg/dL (65-110); Potassium 3.1 mmol/L (3.4-5.0); Sodium 134 mmol/L (137-145)
[2021-06-25 07:50] VITALS: BP 114/75; PULSE 118; RESP 20; TEMP 37.9; O2SAT 92
--- NOTE | 2021-06-25 08:40 | WPDANESPN ---
Anes - Prog Note Post-Op Date/Time: 06/25/21 08:40 Cardiovascular status: normal Respiratory status: normal Airway patency: baseline Mental status: baseline Post-Op hydration status: normal Vital Signs: Last Vital Signs Temp 37.9 C H 06/25/21 07:50 Pulse 118 H 06/25/21 07:50 Resp 20 06/25/21 07:50 BP 114/75 06/25/21 07:50 Pulse Ox 92 06/25/21 07:50 Pain Score (VAS): 0 I/O: Intake & Output 06/24/21 06/25/21 06/25/21 23:59 07:59 15:59 Intake Total 150 1150 Output Total 100 800 Balance 50 350 Laboratory Tests 06/25/21 04:48 06/25/21 04:48 06/24/21 06/25/21 06/25/21 15:50 04:48 04:48 WBC 13.4 H RBC 4.10 L Hgb 11.8 L Hct 33.3 L MCV 81.2 MCH 28.8 MCHC 35.4 RDW 12.6 Plt Count 218 MPV 9.0 Sodium 134 L Potassium 3.1 L Chloride 103 Carbon Dioxide 23 Anion Gap 8 BUN 4 L D Creatinine 0.60 L Estim Creat Clear Calc 110 Estimated GFR > 60 Glucose 138 H Calcium 8.1 L Total Bilirubin 0.6 AST 17 ALT 17 Alkaline Phosphatase 60 Total Protein 6.0 L Albumin 3.2 L CA 125 Antigen Pending 06/25/21 04:48 WBC RBC Hgb Hct MCV MCH MCHC RDW Plt Count MPV Sodium Cancelled Potassium Cancelled Chloride Cancelled Carbon Dioxide Cancelled Anion Gap Cancelled BUN Cancelled Creatinine Cancelled Estim Creat Clear Calc Cancelled Estimated GFR Cancelled Glucose Cancelled Calcium Cancelled Total Bilirubin AST ALT Alkaline Phosphatase Total Protein Albumin CA 125 Antigen Post-procedural complaints: none Patient Feedback: Patient satisfied with anesthetic care.
--- NOTE | 2021-06-25 09:27 | PM.PNGS ---
Progress Note: A&P Assessment and Plan (1) Sigmoid colon injury: Code(s): S36.503A - Unspecified injury of sigmoid colon, initial encounter Status: Acute Assessment and Plan: doing well, soumya clears, await ROBF, encourage OOB/IS Subjective Subjective Date/Time Seen: 06/25/21 09:28 feels better this am, c/o incisional pain Review of Systems Review of Systems: All systems reviewed & are unremarkable except as noted in HPI and below Exam Const: General: cooperative and no acute distress Orientation/consciousness: patient oriented x3 Resp: Effort & Inspection: normal respiratory effort Auscultation: clear to auscultation bilaterally Cardio: Rate: tachycardic Rhythm: regular rhythm GI: Inspection: normal to inspection and distended GI Palp: Yes Soft to palpation and Yes Tenderness to palpation present (GI) Other: incision C/D/I Objective Data Vital Signs Vital Signs: Vital Signs - 24 hr 06/24/21 09:54 06/24/21 10:30 06/24/21 11:00 Temperature 36.4 C 36.4 C Pulse Rate 87 75 74 Respiratory Rate 16 18 18 Blood Pressure 156/101 H 129/92 H Pulse Oximetry 96 06/24/21 16:16 06/24/21 19:49 06/24/21 20:00 Temperature 36.6 C 37.1 C Pulse Rate 67 76 84 Respiratory Rate 20 22 H 21 H Blood Pressure 131/93 H 133/81 134/88 Pulse Oximetry 98 100 100 06/24/21 20:15 06/24/21 20:30 06/24/21 20:50 Temperature 36.8 C Pulse Rate 73 80 89 Respiratory Rate 18 19 20 Blood Pressure 126/91 H 133/89 119/84 Pulse Oximetry 100 93 92 06/25/21 00:10 06/25/21 04:40 06/25/21 07:50 Temperature 36.6 C 36.7 C 37.9 C H Pulse Rate 99 100 118 H Respiratory Rate 18 20 20 Blood Pressure 118/81 109/78 114/75 Pulse Oximetry 94 94 92 Intake/Output Intake/Output: Intake & Output 06/22/21 06/23/21 06/24/21 06/25/21 23:59 23:59 23:59 23:59 Intake Total 1250 1150 Output Total 100 800 Balance 1150 350 Meds/Results Medications: Active Medications Generic Name Dose Route Start Last Admin Trade Name Freq PRN Reason Stop Dose Admin Enoxaparin Sodium 40 mg 06/25/21 09:00 Enoxaparin 40 Mg/0.4 Ml Syringe SUB-Q DAILY JOHNSON Hydromorphone HCl 0.5 mg 06/24/21 08:15 06/24/21 12:31 Hydromorphone Hcl Inj (*Crx) 1 Mg/Ml Syr IV PUSH 0.5 mg Q4H PRN Administration Pain Rated 7-10 Sodium Chloride 1,000 mls @ 125 mls/hr 06/24/21 08:15 06/25/21 00:18 Normal Saline Iv IV CONT 125 mls/hr .Q8H JOHNSON Administration Ketorolac Tromethamine 30 mg 06/24/21 08:15 06/25/21 04:52 Ketorolac 30 Mg/Ml Vial (*Bkc) IV PUSH 06/29/21 08:14 30 mg Q6H PRN Administration Pain Rated 4-6 Morphine Sulfate 2 mg 06/24/21 19:36 06/25/21 03:07 Morphine Sulfate (*Crx) 2 Mg/Ml Inj IV PUSH 2 mg Q2H PRN Administration Pain Rated 4-6 Morphine Sulfate 4 mg 06/24/21 19:36 Morphine Sulfate (*Crx) 4 Mg/Ml Inj IV PUSH Q2H PRN Pain Rated 7-10 Naloxone HCl 0.1 mg 06/24/21 19:36 Naloxone Hcl 0.4 Mg/Ml Vial IV PUSH Q2M PRN Opiate Reversal Ondansetron HCl 4 mg 06/24/21 08:15 Ondansetron Inj 4 Mg/2 Ml Vial IV PUSH Q4H PRN Nausea Pantoprazole Sodium 40 mg 06/25/21 09:00 Pantoprazole 40 Mg Tablet PO QAM [facility] Radiology Results: ITS Impressions Pelvis Ultrasound 06/24/21 07:13 IMPRESSION: 1. 7.8 x 6.4 x 6.1 cm mass in left adnexa, worsened from 05/01/2021. The differential diagnosis includes hemorrhagic cyst, neoplasm, and ovarian torsion. Surgical evaluation is recommended. Abdomen/Pelvis CT 06/24/21 07:15 IMPRESSION: 1. 9.4 x 6.2 x 5.4 cm mass in left adnexa, worsened from 05/01/21. The differential diagnosis includes hemorrhagic cyst, neoplasm, and torsion. Surgical evaluation is recommended. 2. Mild left hydronephrosis and hydroureter secondary to mass effect from the left adnexal mass. Labs Labs: Laboratory Results - last 24 hr 06/25/21 06/25/21 06/25/21 04:48 04:48 04:48 WBC 13.4 H
[2021-06-25] MEDS: ENOXAPARIN 40 MG/0.4 ML SYRINGE SUB-Q (09:36)
--- NOTE | 2021-06-25 10:16 | PM.OBPNVD ---
OB - PN: Subj Subjective Date/time seen: 06/25/21 10:16 Patient comments: incisional pain Narrative: POD 1 s/p laparascopy for large ovarian cyst, with iatrogenic colotomy, converted to open. Bowel resection and reanastomosis per Dr. Cordoba. Pt reports pain is significant. just had morphine, will have toradol shortly. OB - PN: Obj Data Labs CBC & Chem 7: 06/25/21 04:48 06/25/21 04:48 Labs: Laboratory Results - last 24 hr 06/25/21 06/25/21 06/25/21 04:48 04:48 04:48 WBC 13.4 H RBC 4.10 L Hgb 11.8 L Hct 33.3 L MCV 81.2 MCH 28.8 MCHC 35.4 RDW 12.6 Plt Count 218 MPV 9.0 Sodium 134 L Cancelled Potassium 3.1 L Cancelled Chloride 103 Cancelled Carbon Dioxide 23 Cancelled Anion Gap 8 Cancelled BUN 4 L D Cancelled Creatinine 0.60 L Cancelled Estim Creat Clear Calc 110 Cancelled Estimated GFR > 60 Cancelled Glucose 138 H Cancelled Calcium 8.1 L Cancelled Total Bilirubin 0.6 AST 17 ALT 17 Alkaline Phosphatase 60 Total Protein 6.0 L Albumin 3.2 L OB - PN A/P Assessment and Plan (1) Ovarian mass, left: Code(s): N83.8 - Other noninflammatory disorders of ovary, fallopian tube and broad ligament Status: Acute (2) Abdominal pain: Qualifiers: Abdominal location: unspecified location Qualified Code(s): R10.9 - Unspecified abdominal pain Code(s): R10.9 - Unspecified abdominal pain Status: Acute (3) Sigmoid colon injury: Code(s): S36.503A - Unspecified injury of sigmoid colon, initial encounter Status: Acute Plan Comments: Surgical management per Dr Cordoba. Discussed operative findings and operative course with pt. Questions answered. Cyst drained following bowel repair Discussed with pt that she should avoid abdominal surgery in the future if at all possible. Time Spent With Patient Time: Total time spent is greater than 50% in coordination of care (as documented) at patient's floor/unit and/or counseling patient:
[2021-06-25 16:30] VITALS: BP 117/82; PULSE 108; RESP 16; TEMP 37.5; O2SAT 92
[2021-06-25] MEDS: MORPHINE SULFATE (*CRX) 4 MG/ML INJ IV PUSH (18:25)
[2021-06-25 18:32] VITALS: BP 122/90; PULSE 81; RESP 16; TEMP 37.7; O2SAT 100
[2021-06-25] MEDS: KCL 20MEQ/0.9% SOD CHL 1,000 ML 100 ML IV CONT (20:45)
[2021-06-26] MEDS: KETOROLAC 30 MG/ML VIAL (*BKC) IV PUSH ×2 (05:00→11:00)
[2021-06-26] MEDS: KCL 20MEQ/0.9% SOD CHL 1,000 ML 100 ML IV CONT (07:15)
[2021-06-26 07:20] VITALS: BP 142/97; PULSE 111; RESP 18; TEMP 36.6; O2SAT 91
[2021-06-26] MEDS: ENOXAPARIN 40 MG/0.4 ML SYRINGE SUB-Q (08:55)
[2021-06-26] MEDS: PANTOPRAZOLE 40 MG TABLET PO (08:56)
[2021-06-26] MEDS: MORPHINE SULFATE (*CRX) 2 MG/ML INJ IV PUSH (09:09)
[2021-06-26 11:28] LABS: Basophils Percent Auto 0.2 % (0.2-1.2); Eosinophils Absolute Auto 0.1 K/mm3 (0-0.3); Hematocrit 31.6 % (37.0-47.0); Immature Granulocyte Absolute 0.06 K/mm3 (0.00-0.031); Immature Granulocyte Percent A 0.6 % (0-0.5); Lymphocytes Absolute Auto 1.09 K/mm3 (0.9-3.2); Lymphocytes Percent Auto 10.9 % (18.3-44.2); Mean Corpuscular HGB Conc 34.8 g/dl (32-36); Mean Corpuscular Hemoglobin 28.6 pg (26-34); Mean Corpuscular Volume 82.1 fl (80-100); Mean Platelet Volume 8.6 fl (7.4-10.4); Monocytes Absolute Auto 0.6 K/mm3 (0.1-0.6); Monocytes Percent Auto 6.1 % (2.6-8.5); Neutrophils Absolute Auto 8.1 K/mm3 (1.3-6.7); Neutrophils Percent Auto 81.2 % (45.5-73.1); Platelet Count Result 199 k/mm3 (150-375); Red Blood Count 3.85 M/mm3 (4.2-5.4)
[2021-06-26 11:42] LABS: Alanine Aminotransferase 19 U/L (4-35); Albumin Level 3.2 g/dL (3.5-5.1); Alkaline Phosphatase 76 U/L (38-126); Anion Gap 2 mmol/L (8-16); Aspartate Amino Transferase 27 U/L (14-36); Bilirubin,Total 0.8 mg/dL (0.2-1.3); Blood Urea Nitrogen 4 mg/dL (7-17); Calcium 8.1 mg/dL (8.4-10.2); Carbon Dioxide 26 mmol/L (22-30); Chloride 104 mmol/L (98-107); Estimated CRCL calculation 110 ml/min; Estimated Glomerular Filt Rate > 60; Glucose 115 mg/dL (65-110); Potassium 3.3 mmol/L (3.4-5.0); Sodium 132 mmol/L (137-145)
--- NOTE | 2021-06-26 13:19 | PM.PNGS ---
Progress Note: A&P Assessment and Plan (1) Sigmoid colon injury: Code(s): S36.503A - Unspecified injury of sigmoid colon, initial encounter Status: Acute Assessment and Plan: Continue full liquids until signs of flatus or BM Stop IV fluids since patient has been tolerating oral Start MiraLax daily Increase activity Possibly home tomorrow if able to advance diet. (2) Ovarian mass, left: Code(s): N83.8 - Other noninflammatory disorders of ovary, fallopian tube and broad ligament Status: Acute Subjective Subjective Date/Time Seen: 06/26/21 13:19 Interval history: No BM or Flatus yet. Tolerating full liquids without N/V or bloating. Pain control improving. Patient ambulated in halls today. Exam GI: Inspection: incision (intact with fran, slight bloody drainage) and obesity GI Palp: Yes Soft to palpation and Yes Tenderness to palpation present (GI) (incisional) Auscultation: normal bowel sounds Objective Data Vital Signs Vital Signs: Vital Signs - 24 hr 06/25/21 16:30 06/25/21 18:32 06/26/21 07:20 Temperature 37.5 C 37.7 C H 36.6 C Pulse Rate 108 H 81 111 H Respiratory Rate 16 16 18 Blood Pressure 117/82 122/90 142/97 H Pulse Oximetry 92 100 91 Intake/Output Intake/Output: Intake & Output 06/23/21 06/24/21 06/25/21 06/26/21 23:59 23:59 23:59 23:59 Intake Total 1250 2450 1420 Output Total 100 1800 1400 Balance 1150 650 20 Meds/Results Medications: Active Medications Generic Name Dose Route Start Last Admin Trade Name Freq PRN Reason Stop Dose Admin Hydrocodone Bitart/Acetaminophen 1 tab 06/26/21 10:39 Hydrocodone/Acetaminophen (*Crx) 5-325 Mg Tablet PO Q3H PRN Pain Rated 4-6 Hydrocodone Bitart/Acetaminophen 1 tab 06/26/21 10:41 Hydrocodone/Acetaminophen (*Crx) 10-325 Mg Tablet PO Q3H PRN Pain Rated 7-10 Enoxaparin Sodium 40 mg 06/25/21 09:00 06/26/21 08:55 Enoxaparin 40 Mg/0.4 Ml Syringe SUB-Q 40 mg DAILY JOHNSON Administration Ketorolac Tromethamine 30 mg 12/23/21 08:15 06/26/21 11:00 Ketorolac 30 Mg/Ml Vial (*Bkc) IV PUSH 06/29/21 08:14 30 mg Q6H PRN Administration Pain Rated 4-6 Naloxone HCl 0.1 mg 06/24/21 19:36 Naloxone Hcl 0.4 Mg/Ml Vial IV PUSH Q2M PRN Opiate Reversal Ondansetron HCl 4 mg 06/24/21 08:15 Ondansetron Inj 4 Mg/2 Ml Vial IV PUSH Q4H PRN Nausea Pantoprazole Sodium 40 mg 06/25/21 09:00 06/26/21 08:56 Pantoprazole 40 Mg Tablet PO 40 mg QAM JOHNSON Administration Polyethylene Glycol 17 gm 06/26/21 13:20 Polyethylene Glycol 3350 17 Gm Powd.Pack PO QAM JOHNSON Radiology Results: ITS Impressions Pelvis Ultrasound 06/24/21 07:13 IMPRESSION: 1. 7.8 x 6.4 x 6.1 cm mass in left adnexa, worsened from 05/01/2021. The differential diagnosis includes hemorrhagic cyst, neoplasm, and ovarian torsion. Surgical evaluation is recommended. Abdomen/Pelvis CT 06/24/21 07:15 IMPRESSION: 1. 9.4 x 6.2 x 5.4 cm mass in left adnexa, worsened from 05/01/21. The differential diagnosis includes hemorrhagic cyst, neoplasm, and torsion. Surgical evaluation is recommended. 2. Mild left hydronephrosis and hydroureter secondary to mass effect from the left adnexal mass. Labs Labs: Laboratory Results - last 24 hr 06/26/21 06/26/21 11:05 11:05 WBC 10.0 RBC 3.85 L Hgb 11.0 L Hct 31.6 L MCV 82.1 MCH 28.6 MCHC 34.8 RDW 13.0 Plt Count 199 MPV 8.6 Immature Gran % (Auto) 0.6 H Neut % (Auto) 81.2 H Lymph % (Auto) 10.9 L [place] % (Auto) 6.1 Eos % (Auto) 1.0 Baso % (Auto) 0.2 Lymph # (Auto) 1.09 [place] # (Auto) 0.6 Eos # (Auto) 0.1 Baso # (Auto) 0.0 Abs Immat Gran (auto) 0.06 H Absolute Neuts (auto) 8.1 H Absolute Nucleated RBC 0.0 Nucleated RBC % 0.0 Sodium 132 L Potassium 3.3 L Chloride 104 Carbon Dioxide 26 Anion Gap 2 L BUN 4 L Creatinine 0.60 L Estim Creat Clear [place]
[2021-06-26] MEDS: ONDANSETRON INJ 4 MG/2 ML VIAL IV PUSH (13:33)
[2021-06-26] MEDS: HYDROcodone/acetaminophen (*CRX) 10-325 MG TABLET 1 TAB PO ×2 (13:38→17:18)
[2021-06-26] MEDS: polyethylene glycoL 3350 17 GM POWD.PACK PO (13:58)
--- NOTE | 2021-06-26 15:26 | PM.GYNPNOP ---
LIGHTOUT EXAMINER - A/P Postoperative Procedures: Procedures Operation Date: 06/24/21 17:00 Actual Procedure Side Surgeon p diagnostic laparoscopy, laparoscopic lysis of pelvic adhesions,open laparotomy, partial sigmoid colectomy, drainage of ovarian cyst Not Applicable Anitha Ludwig MD Postoperative day: 2 Postoperative status: doing well and marginal pain control Postoperative plan: routine post-op care, advance diet and other (add antibiotics as she had bowel injury- zosyn. possible DC home tomorrow.) Time Spent With Patient Time: Total time spent is greater than 50% in coordination of care (as documented) at patient's floor/unit and/or counseling patient: Time with patient: less than 15 minutes LIGHTOUT EXAMINER- PN:Subj Post-Op Subjective Date/time seen: 06/26/21 15:26 Interval history: DOing well. Garza out, was up to bathroom. Still significant pain. Has passed flatus twice. Tolerating full liquids. Subjective: patient is tolerating oral intake Exam Narrative: NAD abdomen soft, appropriately tender incision bandaged with 1cm strikethrough. Extremities nontender, 1+ edema LIGHTOUT EXAMINER - PN: Obj Data Vital Signs Vital Signs: Vital Signs - 24 hr 06/25/21 16:30 06/25/21 18:32 06/26/21 07:20 Temperature 99.5 F 99.8 F H 97.9 F Pulse Rate 108 H 81 111 H Respiratory Rate 16 16 18 Blood Pressure 117/82 122/90 142/97 H Pulse Oximetry 92 100 91 Intake/Output Intake/Output: Intake & Output 06/23/21 06/24/21 06/25/21 06/26/21 23:59 23:59 23:59 23:59 Intake Total 1250 2450 1570 Output Total 100 1800 1675 Balance 1150 650 -105 Meds/Results Medications: Active Medications Generic Name Dose Route Start Last Admin Trade Name Freq PRN Reason Stop Dose Admin Hydrocodone Bitart/Acetaminophen 1 tab 06/26/21 10:39 Hydrocodone/Acetaminophen (*Crx) 5-325 Mg Tablet PO Q3H PRN Pain Rated 4-6 Hydrocodone Bitart/Acetaminophen 1 tab 06/26/21 10:41 06/26/21 13:38 Hydrocodone/Acetaminophen (*Crx) 10-325 Mg Tablet PO 1 tab Q3H PRN Administration Pain Rated 7-10 Enoxaparin Sodium 40 mg 06/25/21 09:00 06/26/21 08:55 Enoxaparin 40 Mg/0.4 Ml Syringe SUB-Q 40 mg DAILY JOHNSON Administration Ibuprofen 600 mg 06/26/21 15:18 Ibuprofen 600 Mg Tablet PO Q6H PRN Cramping Naloxone HCl 0.1 mg 06/24/21 19:36 Naloxone Hcl 0.4 Mg/Ml Vial IV PUSH Q2M PRN Opiate Reversal Ondansetron HCl 4 mg 06/24/21 08:15 06/26/21 13:33 Ondansetron Inj 4 Mg/2 Ml Vial IV PUSH 4 mg Q4H PRN Administration Nausea Pantoprazole Sodium 40 mg 06/25/21 09:00 06/26/21 08:56 Pantoprazole 40 Mg Tablet PO 40 mg QAM JOHNSON Administration Polyethylene Glycol 17 gm 06/26/21 13:20 06/26/21 13:58 Polyethylene Glycol 3350 17 Gm Powd.Pack PO 17 gm QAM JOHNSON Administration Radiology Results: ITS Impressions Pelvis Ultrasound 06/24/21 07:13 IMPRESSION: 1. 7.8 x 6.4 x 6.1 cm mass in left adnexa, worsened from 05/01/2021. The differential diagnosis includes hemorrhagic cyst, neoplasm, and ovarian torsion. Surgical evaluation is recommended. Abdomen/Pelvis CT 06/24/21 07:15 IMPRESSION: 1. 9.4 x 6.2 x 5.4 cm mass in left adnexa, worsened from 05/01/21. The differential diagnosis includes hemorrhagic cyst, neoplasm, and torsion. Surgical evaluation is recommended. 2. Mild left hydronephrosis and hydroureter secondary to mass effect from the left adnexal mass. Labs CBC & Chem 7: 06/26/21 11:05 06/26/21 11:05 Labs: Laboratory Results - last 24 hr 06/26/21 06/26/21 11:05 11:05 WBC 10.0 RBC 3.85 L Hgb 11.0 L Hct 31.6 L MCV 82.1 MCH 28.6 MCHC 34.8 RDW 13.0 Plt Count 199 MPV 8.6 Immature Gran % (Auto) 0.6 H Neut % (Auto) 81.2 H Lymph % (Auto) 10.9 L [place] % (Auto) 6.1 Eos % (Auto) 1.0 Baso % (Auto) 0.2 Lymph # (Auto) 1.09 [place] # (Auto) 0.6 Eos # (Auto) 0.1 Baso # (Auto) 0.0 Abs Immat Gran (aut
--- NOTE | 2021-06-26 15:31 | PC.NURSE ---
Patient states she is now passing gas. advanced manager diet as per doctor's instructions.
[2021-06-26] MEDS: IBUPROFEN 600 MG TABLET PO (17:17)
[2021-06-26 19:35] VITALS: BP 117/89; PULSE 103; RESP 24; TEMP 36.3; O2SAT 94
[2021-06-27 06:00] LABS: Anion Gap 2 mmol/L (8-16); Blood Urea Nitrogen 4 mg/dL (7-17); Calcium 8.5 mg/dL (8.4-10.2); Carbon Dioxide 28 mmol/L (22-30); Chloride 103 mmol/L (98-107); Estimated CRCL calculation 95 ml/min; Estimated Glomerular Filt Rate > 60; Glucose 101 mg/dL (65-110); Potassium 3.3 mmol/L (3.4-5.0); Sodium 133 mmol/L (137-145)
--- NOTE | 2021-06-27 06:40 | PM.GYNPNOP ---
[facility]FORMATION [facility] OFFICER - A/P Assessment and plan (1) Ovarian mass, left: Code(s): N83.8 - Other noninflammatory disorders of ovary, fallopian tube and broad ligament Status: Acute Assessment and Plan: Likely home today. Suspect O2 sats will improve with sitting and deep breathing, since has not done this all night. Still tryiing to get IC. Tolerating diet. Passing flatus. Fu Monday for staple removal. (2) Abdominal pain: Qualifiers: Abdominal location: unspecified location Qualified Code(s): R10.9 - Unspecified abdominal pain Code(s): R10.9 - Unspecified abdominal pain Status: Acute (3) Sigmoid colon injury: Code(s): S36.503A - Unspecified injury of sigmoid colon, initial encounter Status: Acute Postoperative Procedures: Procedures Operation Date: 06/24/21 17:00 Actual Procedure Side Surgeon p diagnostic laparoscopy, laparoscopic lysis of pelvic adhesions,open laparotomy, partial sigmoid colectomy, drainage of ovarian cyst Not Applicable Anitha Ludwig MD Time Spent With Patient Time: Total time spent is greater than 50% in coordination of care (as documented) at patient's floor/unit and/or counseling patient: Time with patient: 15 - 25 minutes [facility]FORMATION [facility] OFFICER- PN:Subj Post-Op Subjective Date/time seen: 06/27/21 06:40 Interval history: Doing well. pain much improved. Respiratory was never able to bring incentive spirometer. She was deep breathing yesterday, but hasn't overnight or this morning yet. Exam Narrative: NAD breathing shallowly abdomen soft, appropriately tender, incision CDI except small spotting from area of unapproximated skin. Extremities nontender with 1+ edema [facility]FORMATION [facility] OFFICER - PN: Obj Data Vital Signs Vital Signs: Vital Signs - 24 hr 06/26/21 07:20 06/26/21 19:35 Temperature 97.9 F 97.3 F L Pulse Rate 111 H 103 H Respiratory Rate 18 24 H Blood Pressure 142/97 H 117/89 Pulse Oximetry 91 94 Intake/Output Intake/Output: Intake & Output 06/24/21 06/25/21 06/26/21 06/27/21 23:59 23:59 23:59 23:59 Intake Total 1250 2450 2340 Output Total 100 1800 1950 Balance 1150 650 390 Meds/Results Medications: Active Medications Generic Name Dose Route Start Last Admin Trade Name Freq PRN Reason Stop Dose Admin Hydrocodone Bitart/Acetaminophen 1 tab 06/26/21 10:39 Hydrocodone/Acetaminophen (*Crx) 5-325 Mg Tablet PO Q3H PRN Pain Rated 4-6 Hydrocodone Bitart/Acetaminophen 1 tab 06/26/21 10:41 06/26/21 17:18 Hydrocodone/Acetaminophen (*Crx) 10-325 Mg Tablet PO 1 tab Q3H PRN Administration Pain Rated 7-10 Enoxaparin Sodium 40 mg 06/25/21 09:00 06/26/21 08:55 Enoxaparin 40 Mg/0.4 Ml Syringe SUB-Q 40 mg DAILY JOHNSON Administration Piperacillin/Tazobactam/Dextrose 3.375 gm in 50 mls @ 100 mls/hr 06/26/21 16:00 06/27/21 03:58 Zosyn 3.375 Gm/D5w 50ml Pm IVPB 100 mls/hr Q6H JOHNSON Administration Ibuprofen 600 mg 06/26/21 15:18 06/26/21 17:17 Ibuprofen 600 Mg Tablet PO 600 mg Q6H PRN Administration Cramping Naloxone HCl 0.1 mg 06/24/21 19:36 Naloxone Hcl 0.4 Mg/Ml Vial IV PUSH Q2M PRN Opiate Reversal Ondansetron HCl 4 mg 06/24/21 08:15 06/26/21 13:33 Ondansetron Inj 4 Mg/2 Ml Vial IV PUSH 4 mg Q4H PRN Administration Nausea Pantoprazole Sodium 40 mg 06/25/21 09:00 06/26/21 08:56 Pantoprazole 40 Mg Tablet PO 40 mg QAM JOHNSON Administration Polyethylene Glycol 17 gm 06/26/21 13:20 06/26/21 13:58 Polyethylene Glycol 3350 17 Gm Powd.Pack PO 17 gm QAM JOHNSON Administration Radiology Results: ITS Impressions Pelvis Ultrasound 06/24/21 07:13 IMPRESSION: 1. 7.8 x 6.4 x 6.1 cm mass in left adnexa, worsened from 05/01/2021. The differential diagnosis includes hemorrhagic cyst, neoplasm, and ovarian torsion. Surgical evaluation is recommended. Abdomen/Pelvis CT 06/24/21 07:15 IMPRESSION: 1. 9.4 x 6.2 x 5.4 cm mass in left adnexa, worsened from 05/01/21.
[2021-06-27 06:50] VITALS: BP 127/95; PULSE 108; RESP 18; TEMP 37.3; O2SAT 89
[2021-06-27] MEDS: IBUPROFEN 600 MG TABLET PO (07:02)
[2021-06-27] MEDS: HYDROcodone/acetaminophen (*CRX) 5-325 MG TABLET 1 TAB PO (07:02)
--- NOTE | 2021-06-27 07:12 | PM.DS ---
DS: Admitting Diagnosis Discharge Date 06/27/2021 Admitting Diagnosis abdominal pain left ovarian cyst DS: Discharge Diagnosis Discharge Diagnosis (1) S/P laparotomy: Code(s): Z98.890 - Other specified postprocedural states Status: Acute (2) Ovarian mass, left: Code(s): N83.8 - Other noninflammatory disorders of ovary, fallopian tube and broad ligament Status: Acute (3) Sigmoid colon injury: Code(s): S36.503A - Unspecified injury of sigmoid colon, initial encounter Status: Acute DS: Summary Hospital Course Reason for hospitalization: abdominal pain, ovarian cyst Hospital Course: Pt was admitted for pain control secondary to large left ovarian cyst. Pain was only controlled moderately with dilaudid, so she was taken for laparoscopy. On laparoscopy, copious adhesions were noted and prevented treatment of ovarian cyst, so Dr. Cordoba was called for an intraoperative consult. He took down the adhesions, but the patient received an iatrogenic sigmoid colon injury and had a partial colectomy with primary closure. Her post op course was uncomplicated and she was discharged home on POD 3. Status at Discharge Functional status at discharge: independent ambulation Time Spent with Patient Time attestation: Total time spent providing and/or coordinating discharge services: Time spent: Less than 30 minutes Exam Narrative: NAD abdomen soft, nontender, fundus firm below the umbilicus Extremities nontender, 1+ edema DS: Data Data Completed and Pending Pending studies at discharge: Pending at discharge 06/24/21 19:00 Surgical [PTH] Routine Labs on day of discharge: Labs from last 24 hours 06/27/21 06/27/21 06/26/21 05:06 05:06 11:05 WBC Pending RBC Pending Hgb Pending Hct Pending MCV Pending MCH Pending MCHC Pending RDW Pending Plt Count Pending MPV Pending Immature Gran % (Auto) Neut % (Auto) Lymph % (Auto) [place] % (Auto) Eos % (Auto) Baso % (Auto) Lymph # (Auto) [place] # (Auto) Eos # (Auto) Baso # (Auto) Abs Immat Gran (auto) Absolute Neuts (auto) Absolute Nucleated RBC Nucleated RBC % Sodium 133 L 132 L Potassium 3.3 L 3.3 L Chloride 103 104 Carbon Dioxide 28 26 Anion Gap 2 L 2 L BUN 4 L 4 L Creatinine 0.70 0.60 L Estim Creat Clear Calc 95 110 Estimated GFR > 60 > 60 Glucose 101 115 H Calcium 8.5 8.1 L Total Bilirubin 0.8 AST 27 ALT 19 Alkaline Phosphatase 76 Total Protein 6.0 L Albumin 3.2 L 06/26/21 11:05 WBC 10.0 RBC 3.85 L Hgb 11.0 L Hct 31.6 L MCV 82.1 MCH 28.6 MCHC 34.8 RDW 13.0 Plt Count 199 MPV 8.6 Immature Gran % (Auto) 0.6 H Neut % (Auto) 81.2 H Lymph % (Auto) 10.9 L [place] % (Auto) 6.1 Eos % (Auto) 1.0 Baso % (Auto) 0.2 Lymph # (Auto) 1.09 [place] # (Auto) 0.6 Eos # (Auto) 0.1 Baso # (Auto) 0.0 Abs Immat Gran (auto) 0.06 H Absolute Neuts (auto) 8.1 H Absolute Nucleated RBC 0.0 Nucleated RBC % 0.0 Sodium Potassium Chloride Carbon Dioxide Anion Gap BUN Creatinine Estim Creat Clear Calc Estimated GFR Glucose Calcium Total Bilirubin AST ALT Alkaline Phosphatase Total Protein Albumin Discharge Plan Discharge Attending physician on discharge: Anitha Ludwig Consulting providers: Nayla Cordoba Discharging Clinician: Anitha Ludwig Anticipated Discharge Date/Time: 06/27/21 15:00 Patient Disposition: Home, Self-Care Activity: may shower, no straining, no driving, may drive after 2 weeks and pelvic rest Diet: regular Patient Instructions: Antibiotic Form Stand Alone Forms: General Discharge Information Follow-up/Referrals: Anitha Ludwig MD [Physician] - 1 Week (Monday staple removal) Discharge Medications: New tramadol 50 mg tablet 50 mg PO Q6H PRN (Reason: pain) Qty: 12 RF: 0 hydrocodone-acetaminophen 5-325 mg Tablet
[2021-06-27 08:40] VITALS: BP 125/99; PULSE 115; RESP 18; O2SAT 89
[2021-06-27] MEDS: PANTOPRAZOLE 40 MG TABLET PO (08:41)
[2021-06-27] MEDS: polyethylene glycoL 3350 17 GM POWD.PACK PO (08:41)
[2021-06-27] MEDS: ENOXAPARIN 40 MG/0.4 ML SYRINGE SUB-Q (08:42)
--- NOTE | 2021-06-27 09:09 | PC.NURSE ---
Addendum entered by Erin Jin RN 06/27/21 11:26: 1125 Called [employer] and left a message about this pt needing an Incentive Spirometer. Original Note: [id number] Called Respiratory to get an Incentive Spirometer for pt. Had to leave a message. 09 Called operated to get another number for [facility]. Called it and left a message about the need for the Incentive Spirometer.
[2021-06-27 10:09] LABS: Hematocrit 30.2 % (37.0-47.0); Hemoglobin 10.4 g/dL (12.0-15.0); Mean Corpuscular HGB Conc 34.4 g/dl (32-36); Mean Corpuscular Hemoglobin 28.4 pg (26-34); Mean Corpuscular Volume 82.5 fl (80-100); Mean Platelet Volume 9.3 fl (7.4-10.4); Platelet Count Result 250 k/mm3 (150-375); Red Blood Count 3.66 M/mm3 (4.2-5.4); Red Cell Distribution Width 13.1 % (11.5-14.5); White Blood Count 9.8 K/mm3 (4.5-10.0)
[2021-06-27 10:25] VITALS: BP 118/95; PULSE 108; RESP 16; O2SAT 92
--- NOTE | 2021-06-27 10:33 | PM.PNGS ---
Progress Note: A&P Assessment and Plan (1) Sigmoid colon injury: Code(s): S36.503A - Unspecified injury of sigmoid colon, initial encounter Status: Acute Assessment and Plan: If patient tolerating regular diet, OK to discharge home later today. Continue MiraLax daily Follow up with Dr. Cordoba in 2 weeks (2) Ovarian mass, left: Code(s): N83.8 - Other noninflammatory disorders of ovary, fallopian tube and broad ligament Status: Acute Subjective Subjective Date/Time Seen: 06/27/21 10:33 Interval history: Pain improved. Tolerating regular diet. Passing flatus. No bloating or nausea. Exam GI: Inspection: incision (minimal bloody drainage at a couple spots) GI Palp: Yes Tenderness to palpation present (GI) (incisional) Auscultation: normal bowel sounds Objective Data Vital Signs Vital Signs: Vital Signs - 24 hr 06/26/21 19:35 06/27/21 06:50 06/27/21 08:40 Temperature 36.3 C L 37.3 C Pulse Rate 103 H 108 H 115 H Respiratory Rate 24 H 18 18 Blood Pressure 117/89 127/95 H 125/99 H Pulse Oximetry 94 89 L 89 L Intake/Output Intake/Output: Intake & Output 06/24/21 06/25/21 06/26/21 06/27/21 23:59 23:59 23:59 23:59 Intake Total 1250 2450 2340 50 Output Total 100 1800 1950 Balance 1150 650 390 50 Meds/Results Medications: Active Medications Generic Name Dose Route Start Last Admin Trade Name Freq PRN Reason Stop Dose Admin Hydrocodone Bitart/Acetaminophen 1 tab 06/26/21 10:39 06/27/21 07:02 Hydrocodone/Acetaminophen (*Crx) 5-325 Mg Tablet PO 1 tab Q3H PRN Administration Pain Rated 4-6 Hydrocodone Bitart/Acetaminophen 1 tab 06/26/21 10:41 06/26/21 17:18 Hydrocodone/Acetaminophen (*Crx) 10-325 Mg Tablet PO 1 tab Q3H PRN Administration Pain Rated 7-10 Enoxaparin Sodium 40 mg 06/25/21 09:00 06/27/21 08:42 Enoxaparin 40 Mg/0.4 Ml Syringe SUB-Q 40 mg DAILY JOHNSON Administration Piperacillin/Tazobactam/Dextrose 3.375 gm in 50 mls @ 100 mls/hr 06/26/21 16:00 06/27/21 10:25 Zosyn 3.375 Gm/D5w 50ml Pm IVPB 100 mls/hr Q6H JOHNSON Administration Ibuprofen 600 mg 06/26/21 15:18 06/27/21 07:02 Ibuprofen 600 Mg Tablet PO 600 mg Q6H PRN Administration Cramping Naloxone HCl 0.1 mg 06/24/21 19:36 Naloxone Hcl 0.4 Mg/Ml Vial IV PUSH Q2M PRN Opiate Reversal Ondansetron HCl 4 mg 06/24/21 08:15 06/26/21 13:33 Ondansetron Inj 4 Mg/2 Ml Vial IV PUSH 4 mg Q4H PRN Administration Nausea Pantoprazole Sodium 40 mg 06/25/21 09:00 06/27/21 08:41 Pantoprazole 40 Mg Tablet PO 40 mg QAM JOHNSON Administration Polyethylene Glycol 17 gm 06/26/21 13:20 06/27/21 08:41 Polyethylene Glycol 3350 17 Gm Powd.Pack PO 17 gm QAM JOHNSON Administration Radiology Results: ITS Impressions Pelvis Ultrasound 06/24/21 07:13 IMPRESSION: 1. 7.8 x 6.4 x 6.1 cm mass in left adnexa, worsened from 05/01/2021. The differential diagnosis includes hemorrhagic cyst, neoplasm, and ovarian torsion. Surgical evaluation is recommended. Abdomen/Pelvis CT 06/24/21 07:15 IMPRESSION: 1. 9.4 x 6.2 x 5.4 cm mass in left adnexa, worsened from 05/01/21. The differential diagnosis includes hemorrhagic cyst, neoplasm, and torsion. Surgical evaluation is recommended. 2. Mild left hydronephrosis and hydroureter secondary to mass effect from the left adnexal mass. Labs Labs: Laboratory Results - last 24 hr 06/26/21 06/26/21 06/27/21 11:05 11:05 05:06 WBC 10.0 9.8 RBC 3.85 L 3.66 L Hgb 11.0 L 10.4 L Hct 31.6 L 30.2 L MCV 82.1 82.5 MCH 28.6 28.4 MCHC 34.8 34.4 RDW 13.0 13.1 Plt Count 199 250 MPV 8.6 9.3 Immature Gran % (Auto) 0.6 H Neut % (Auto) 81.2 H Lymph % (Auto) 10.9 L [place] % (Auto) 6.1 Eos % (Auto) 1.0 Baso % (Auto) 0.2 Lymph # (Auto) 1.09 [place] # (Auto) 0.6 Eos # (Auto) 0.1 Baso # (Auto) 0.0 Abs Immat Gran (auto) 0.06 H Absolut
--- NOTE | 2021-06-27 11:37 | PC.NURSE ---
1130 An Incentive Spirometer was brought to the pt. and she was instructed on how to use it. All of this was done by Res[facility].
[2021-06-28 03:31] LABS: CA-125 2 U/mL (<35)
== END 2021-06-27 13:33 | disposition home or self-care (01) | DRG 513 ==
LOC: ANHED 06-24 01:43 → ANHOB2 06-24 09:19
PROVIDERS: General Practice; Surgery; Admitting Provider Obstetrics & Gynecology; Emergency Provider Emergency Medicine; PCP Internal Medicine Infectious Disease; Visit Provider Obstetrics & Gynecology
PROC: 0U910ZZ Drainage of Left Ovary, Open Approach (ICD-10-PCS; CPT 49320; principal; 2021-06-24 17:00)
DX: N83.8 Other noninflammatory disorders of ovary, fallopian tube and broad ligament (principal); K66.0 Peritoneal adhesions (postprocedural) (postinfection); K91.72 Accidental puncture and laceration of a digestive system organ or structure during other procedure; Y83.8 Other surgical procedures as the cause of abnormal reaction of the patient, or of later complication, without mention of misadventure at the time of the procedure; Z53.31 Laparoscopic surgical procedure converted to open procedure; R10.9 Unspecified abdominal pain; Z86.711 Personal history of pulmonary embolism; Z87.42 Personal history of other diseases of the female genital tract; Z90.710 Acquired absence of both cervix and uterus; Z79.899 Other long term (current) drug therapy
CPT/HCPCS: 36415; 74177; 76857; 80048; 80053; 81001; 83690; 85025; 85027; 86304; 88307; 96361; 96365; 96375; 96376; 99199; 99285; A9270; G0378; G0379; J0131; J0330; J0690; J1100; J1170; J1650; J1885; J2250; J2270; J2405; J2543; J2550; J2704; J2710; J3010; J3480; J7030; J7040; J7120; Q9967

== ENCOUNTER 2025-06-01 06:06 | Emergency (ER) | payer BC, SELFPAY ==
--- NOTE | ~2025-06-01 | CT_ITS ---
CT abdomen pelvis w con Clinical History: RLQ pain . Comparison: CT abdomen pelvis 06/24/2021 Technique: Axial images lung bases to symphysis pubis IV contrast information not listed in PACS Coronal, sagittal reformats CT images acquired with automatic exposure control for dose reduction DLP: 847 mGy-cm Findings: Lung bases: Clear. Visualized heart and pericardium: Unremarkable. Liver: Enlarged. Steatosis. Gallbladder: Unremarkable. Spleen: Unremarkable. Pancreas: Unremarkable. Adrenal glands: Small nodular focus left side unchanged since 2020. Kidneys: Right kidney- mild hydronephrosis. No renal stones. A few small cysts. Small calcification region distal right ureter. Left kidney- No hydronephrosis. No renal stones. Distal esophagus/stomach: Unremarkable. Small bowel loops: Normal caliber and wall thickness. Colon: Normal caliber and wall thickness. Normal RLQ appendix. Anastomosis left lower quadrant. Nodes: No enlarged nodes. Peritoneum: No ascites. No free air. Urinary bladder: Unremarkable. Uterus: Removed. Adnexa: No masses. Cystic focus left side Bones: No acute bony abnormality. Soft tissues: Unremarkable. Aorta: No aneurysm or dissection. IVC: Filter. Multiple extraluminal struts. Main portal vein/SMV/splenic vein: Patent. IMPRESSION: 1. Tiny stone distal right ureter versus phlebolith. Suspect stone given minimal hydronephrosis right kidney. Reviewed, dictated and finalized at location R. [facility] IMPRESSION: 1. Tiny stone distal right ureter versus phlebolith. Suspect stone given minim al hydronephrosis right kidney.
[2025-06-01 06:16] VITALS: BP 132/95; PULSE 90; RESP 16; O2SAT 96
[2025-06-01 06:33] LABS: Hematocrit 36.9 % (37.0-47.0); Hemoglobin 12.3 g/dL (12.0-15.0); Immature Granulocyte Percent A 0.2 % (0-0.5); Lymphocytes Absolute Auto 2.02 K/mm3 (0.9-3.2); Mean Corpuscular HGB Conc 33.3 g/dl (32-36); Mean Corpuscular Hemoglobin 26.2 pg (26-34); Mean Corpuscular Volume 78.7 fl (80-100); Nucleated Red Blood Cells Absolute Auto 0.000 K/mm3 (0.0-0.012); Nucleated Red Blood Cells Perc 0.0 % (0.0-0.2); Platelet Count Result 247 k/mm3 (150-375); Red Blood Count 4.69 M/mm3 (4.2-5.4); White Blood Count 4.7 K/mm3 (4.5-10.0)
--- NOTE | 2025-06-01 06:35 | ED.ABDPAIN ---
HPI - Abdominal Pain General Chief Complaint: Abdominal Pain <Tri Sanders MD - Last Filed: 06/02/25 08:20> Stated Complaint: pains in my side - right side. <Tri Sanders MD - Last Filed: 06/02/25 08:20> Time Seen by Provider: 06/01/25 06:29 <Tri Sanders MD - Last Filed: 06/02/25 08:20> History of Present Illness HPI narrative: For last few days, patient has had pain to her right lower quadrant. No nausea vomiting, fevers chills, no dysuria. Has had history of kidney infection, pancreatitis, kidney stones. <Tri Sanders MD - Last Filed: 06/02/25 08:20> Related Data Home Medications: Home Medications ?Medication ?Instructions ?Recorded ?Confirmed ?Last Taken ?Type enoxaparin 80 mg/0.8 mL 80 mg subcut BID 05/21/19 07/14/21 07/16/19 02:00 History subcutaneous syringe (Lovenox) ferrous sulfate 324 mg (65 mg 324 mg PO BID 07/10/19 07/14/21 Unknown History iron) tablet,delayed release <Tri Sanders MD - Last Filed: 06/02/25 08:20> Allergies/Adverse Reactions: Allergies Allergy/AdvReac Type Severity Reaction Status Date / Time No Known Allergies Allergy Verified 07/13/21 14:30 <Tri Sanders MD - Last Filed: 06/02/25 08:20> Review of Systems Review of Systems: All systems reviewed & are unremarkable except as noted in HPI and below <Tri Sanders MD - Last Filed: 06/02/25 08:20> [facility] Past Medical History Medical History: Medical History Anemia due to blood loss Obesity Pulmonary embolism Pulmonary embolus Uterine fibroid <Tri Sanders MD - Last Filed: 06/02/25 08:20> Surgical History Surgical History: Surgical History H/O: hysterectomy History of partial colectomy 06/24/21 laparoscopic converted to open lysis of adhesions, partial sigmoid colectomy with primary anastomosis Previous section <Tri Sanders MD - Last Filed: 06/02/25 08:20> Family History Family History: Family History Father Diabetes mellitus <Tri Sanders MD - Last Filed: 06/02/25 08:20> Social History Social History: Social History Smoking status: Never smoker Second hand tobacco smoke exposure: No Alcohol intake: former Substance use: never Substance use type: does not use Gender identity (if verbalized by the patient): Female Spiritual care concerns: No Agree to blood products: Yes <Tri Sanders MD - Last Filed: 06/02/25 08:20> Exam Narrative: EXAMINATION OF ORGAN SYSTEMS/BODY AREAS: Constitutional: Vital signs per nursing GENERAL:[No acute distress, non-toxic appearing.] HEAD: Normal with no signs of head trauma. EYES: EOMI, conjunctiva normal ENT: Hearing grossly intact LUNGS: Nonlabored breathing. HEART: [Regular rate and rhythm] ABD: [Soft], very slightly tender to deep palpation right lower quadrant EXT: Normal range of motion SKIN: [No rashes or lesions.] NEURO: [Alert and oriented x 3. No gross focal sensory or strength deficits.] PSYCH: Normal affect <Tri Sanders MD - Last Filed: 06/02/25 08:20> Course Vital Signs Vital signs: Vital Signs Pulse Rate 90 06/01/25 06:16 Respiratory Rate 16 06/01/25 06:16 Blood Pressure 132/95 H 06/01/25 06:16 Pulse Oximetry 96 06/01/25 06:16 Oxygen Delivery Room Air 06/01/25 06:16 Temperature 97.9 F 06/01/25 08:49 Pulse Rate 94 06/01/25 08:49 Respiratory Rate 18 06/01/25 08:49 Blood Pressure 122/78 06/01/25 08:49 Pulse Oximetry 98 06/01/25 08:49 Oxygen Delivery Room Air 06/01/25 06:16 <Tri Snaders MD - Last Filed: 06/02/25 08:20> Vital Signs Pulse Rate 90 06/01/25 06:16 Respiratory Rate 16 06/01/25 06:16 Blood Pressure 132/95 H 06/01/25 06:16 Pulse Oximetry 96 06/01/25 06:16 Oxygen Delivery Room Air 06/01/25 06:16 Temperature 97.9 F 06/01/25 08:49 Pulse Rate 94 06/01/25 08:49 Respiratory Rate 18 06/01/25 08:49 Blood Pressure 122/78 06/01/25 08:49 Pulse Oximetry 98 06/01/25 08:49 Oxygen Delivery Room Air 06/01/25 06:16 <Sy Moess MD - Last Filed: 06/01/25 17:52> MDM - Abdominal Pain MDM Narrative Medical decision making narrative: Electronic medical record was reviewed. Patient presented to the ED with complaint of [abdominal pain to rule out quadrant for last few days, no fevers chills or nausea]. Vitals [were within acceptable limits]. Physical exam revealed soft abdomen, slight tenderness to palpation right lower quadrant.. Based on the patient's history and physical exam, my differential includes but is not limited to [gastritis, gastroenteritis, UTI, appendicitis]. [IV access was established by nursing staff. Patient was given morphine]. CBC, BMP, lipase, LFTs, bilirubin and alk phos were obtained. Labs were pertinent for unremarkable labs. [Decision was made to obtain a CT-abdomen to evaluate for acute abdominal process.] Patient signed out to [facility] physician pain labs and imaging. <Tri Sanders MD - Last Filed: 06/02/25 08:20> Electronic medical record was reviewed. Patient presented to the ED with complaint of [abdominal pain to rule out quadrant for last few days, no fevers chills or nausea]. Vitals [were within acceptable limits]. Physical exam revealed soft abdomen, slight tenderness to palpation right lower quadrant.. Based on the patient's history and physical exam, my differential includes but is not limited to [gastritis, gastroenteritis, UTI, appendicitis]. [IV access was established by nursing staff. Patient was given morphine]. CBC, BMP, lipase, LFTs, bilirubin and alk phos were obtained. Labs were pertinent for unremarkable labs. [Decision was made to obtain a CT-abdomen to evaluate for acute abdominal process.] [facility] --- CT scan showed tiny stone distal right ureter versus phlebolith. Suspect stone given minimal hydronephrosis right kidney. patient's UA was negative for infection and for hematuria. Patient had no fever no white blood cell count, hemoglobin was 12.3. No acute abnormalities on her CMP. Patient was advised to take scheduled naproxen for pain control, and have close follow-up with her primary care physician. Patient is also being provided additional medication for pain control. Patient was updated the results of her workup. Patient was comfortable with the plan for discharge and close follow-up. <Sy Moses MD - Last Filed: 06/01/25 17:52> Differential Diagnosis Differential diagnosis: Likely abdominal pain, acute appendicitis, calculus of kidney, constipation, diverticulitis, gastroenteritis, pancreatitis and small bowel obstruction <Sy Moses MD - Last Filed: 06/01/25 17:52> Lab Data Attestation: I reviewed the patient's lab results. <Sy Moses MD - Last Filed: 06/01/25 17:52> Result diagrams: 06/01/25 06:26 06/01/25 06:26 <Tri Sanders MD - Last Filed: 06/02/25 08:20> Labs: Lab Results 06/01/25 06/01/25 Range/Units 06:25 06:26 WBC 4.7 (4.5-10.0) K/mm3 RBC 4.69 (4.2-5.4) M/mm3 Hgb 12.3 (12.0-15.0) g/dL Hct 36.9 L (37.0-47.0) % MCV 78.7 L (80-100) fl MCH 26.2 (26-34) pg MCHC 33.3 (32-36) g/dl RDW 13.6 (11.5-14.5) % Plt Count 247 (150-375) k/mm3 MPV 9.0 (7.4-10.4) fl Immature Gran % (Auto) 0.2 (0-0.5) % Neut % (Auto) 48.6 (45.5-73.1) % Lymph % (Auto) 42.8 (18.3-44.2) % [place] % (Auto) 5.7 (2.6-8.5) % Eos % (Auto) 2.3 (0-4.4) % Baso % (Auto) 0.4 (0.2-1.2) % Lymph # (Auto) 2.02 (0.9-3.2) K/mm3 [place] # (Auto) 0.3 (0.1-0.6) K/mm3 Eos # (Auto) 0.1 (0-0.3) K/mm3 Baso # (Auto) 0.0 (0.0-0.1) K/mm3 Abs Immat Gran (auto) 0.01 (0.00-0.031) K/mm3 Absolute Neuts (auto) 2.3 (1.3-6.7) K/mm3 Absolute Nucleated RBC 0.000 (0.0-0.012) K/mm3 Nucleated RBC % 0.0 (0.0-0.2) % Sodium 134 L (137-145) mmol/L Potassium 3.7 (3.4-5.0) mmol/L Chloride 104 (98-107) mmol/L Carbon Dioxide 23 (22-30) mmol/L Anion Gap 7 (4-12) mmol/L BUN 12 D (7-17) mg/dL Creatinine 0.75 (0.7-1.0) mg/dL Estim Creat Clear Calc 87 ml/min Estimated GFR > 60 (59 - ) Glucose 125 H (65-110) mg/dL Calcium 9.1 (8.4-10.2) mg/dL Total Bilirubin 0.5 (0.2-1.3) mg/dL AST 23 (14-36) U/L ALT 16 (6-35) U/L Alkaline Phosphatase 65 (38-126) U/L Total Protein 8.4 H (6.3-8.2) g/dL Albumin 4.3 (3.5-5.1) g/dL Lipase 122 (23-300) U/L Urine Color Yellow (Yellow) Urine Appearance Clear (Clear) Urine pH 6.0 (5.0-9.0) Ur Specific [place] 1.009 (1.001-1.035) Urine Protein Negative (Negative) mg/dL Urine Glucose (UA) Negative (Negative) mg/dL Urine Ketones Negative (Negative) mg/dL Ur Blood (Man) Negative (Negative) Urine Nitrate Negative (Negative) Urine Bilirubin Negative (Negative) Urine Urobilinogen 0.2 (<2.0) mg/dL Leukocyte Esterase Rfl Negative (Negative) ELLE/UL <Tri Sanders MD - Last Filed: 06/02/25 08:20> Lab Results 06/01/25 06/01/25 Range/Units 06:25 06:26 WBC 4.7 (4.5-10.0) K/mm3 RBC 4.69 (4.2-5.4) M/mm3 Hgb 12.3 (12.0-15.0) g/dL Hct 36.9 L (37.0-47.0) % MCV 78.7 L (80-100) fl MCH 26.2 (26-34) pg MCHC 33.3 (32-36) g/dl RDW 13.6 (11.5-14.5) % Plt Count 247 (150-375) k/mm3 MPV 9.0 (7.4-10.4) fl Immature Gran % (Auto) 0.2 (0-0.5) % Neut % (Auto) 48.6 (45.5-73.1) % Lymph % (Auto) 42.8 (18.3-44.2) % [place] % (Auto) 5.7 (2.6-8.5) % Eos % (Auto) 2.3 (0-4.4) % Baso % (Auto) 0.4 (0.2-1.2) % Lymph # (Auto) 2.02 (0.9-3.2) K/mm3 [place] # (Auto) 0.3 (0.1-0.6) K/mm3 Eos # (Auto) 0.1 (0-0.3) K/mm3 Baso # (Auto) 0.0 (0.0-0.1) K/mm3 Abs Immat Gran (auto) 0.01 (0.00-0.031) K/mm3 Absolute Neuts (auto) 2.3 (1.3-6.7) K/mm3 Absolute Nucleated RBC 0.000 (0.0-0.012) K/mm3 Nucleated RBC % 0.0 (0.0-0.2) % Sodium 134 L (137-145) mmol/L Potassium 3.7 (3.4-5.0) mmol/L Chloride 104 (98-107) mmol/L Carbon Dioxide 23 (22-30) mmol/L Anion Gap 7 (4-12) mmol/L BUN 12 D (7-17) mg/dL Creatinine 0.75 (0.7-1.0) mg/dL Estim Creat Clear Calc 87 ml/min Estimated GFR > 60 (59 - ) Glucose 125 H (65-110) mg/dL Calcium 9.1 (8.4-10.2) mg/dL Total Bilirubin 0.5 (0.2-1.3) mg/dL AST 23 (14-36) U/L ALT 16 (6-35) U/L Alkaline Phosphatase 65 (38-126) U/L Total Protein 8.4 H (6.3-8.2) g/dL Albumin 4.3 (3.5-5.1) g/dL Lipase 122 (23-300) U/L Urine Color Yellow (Yellow) Urine Appearance Clear (Clear) Urine pH 6.0 (5.0-9.0) Ur Specific [place] 1.009 (1.001-1.035) Urine Protein Negative (Negative) mg/dL Urine Glucose (UA) Negative (Negative) mg/dL Urine Ketones Negative (Negative) mg/dL Ur Blood (Man) Negative (Negative) Urine Nitrate Negative (Negative) Urine Bilirubin Negative (Negative) Urine Urobilinogen 0.2 (<2.0) mg/dL Leukocyte Esterase Rfl Negative (Negative) ELLE/UL <Sy Moses MD - Last Filed: 06/01/25 17:52> Imaging Data Radiologist's impression: ITS Impressions Abdomen/Pelvis CT 06/01/25 08:02 IMPRESSION: 1. Tiny stone distal right ureter versus phlebolith. Suspect stone given minimal hydronephrosis right kidney. <Tri Sanders MD - Last Filed: 06/02/25 08:20> ITS Impressions Abdomen/Pelvis CT 06/01/25 08:02 IMPRESSION: 1. Tiny stone distal right ureter versus phlebolith. Suspect stone given minimal hydronephrosis right kidney. <Sy Moses MD - Last Filed: 06/01/25 17:52> Discharge Plan Discharge Clinical Impression: Abdominal pain Qualifiers: Abdominal location: unspecified location Qualified Code(s): R10.9 - Unspecified abdominal pain <Tri Sanders MD - Last Filed: 06/02/25 08:20> Patient Disposition: Home <Tri Sanders MD - Last Filed: 06/02/25 08:20> Condition: Stable <Tri Sanders MD - Last Filed: 06/02/25 08:20> Instructions: Antibiotic Form, Abdominal Pain (ED) <Tri Sanders MD - Last Filed: 06/02/25 08:20> Additional Instructions: Naproxen for pain control as directed. Additional Tylenol for pain control as needed. Have close follow-up with your primary care physician. If you have any worsening symptoms then please call or return to the emergency department. <Tri Sanders MD - Last Filed: 06/02/25 08:20> Patient Language: Hungarian <Tri Sanders MD - Last Filed: 06/02/25 08:20> Prescriptions: New naproxen [Naprosyn] 500 mg tablet 500 mg PO BID 7 Days Qty: 14 0RF No Action enoxaparin [Lovenox] 80 mg/0.8 mL syringe 80 mg subcut BID diazepam 5 mg tablet 5 mg PO BID PRN (Reason: muscle spasm) Qty: 10 0RF ibuprofen 600 mg Tablet 600 mg PO Q6H PRN (Reason: Cramping) Qty: 60 0RF enoxaparin [Lovenox] 40 mg/0.4 mL Syringe 40 mg subcut DAILY 14 Days Qty: 5.6 0RF ferrous sulfate 324 mg (65 mg iron) tablet,delayed release (DR/EC) 324 mg PO BID <Tri Sanders MD - Last Filed: 06/02/25 08:20> Follow-up/Referrals: Roshni,Ivette Alford [Primary Care Provider] <Tri Sanders MD - Last Filed: 06/02/25 08:20>
[2025-06-01] MEDS: MORPHINE SULFATE (*CRX) 4 MG/ML INJ 2 MG IV PUSH (06:40)
[2025-06-01 06:42] LABS: Alanine Aminotransferase 16 U/L (6-35); Albumin Level 4.3 g/dL (3.5-5.1); Alkaline Phosphatase 65 U/L (38-126); Anion Gap 7 mmol/L (4-12); Aspartate Amino Transferase 23 U/L (14-36); Bilirubin,Total 0.5 mg/dL (0.2-1.3); Blood Urea Nitrogen 12 mg/dL (7-17); Calcium 9.1 mg/dL (8.4-10.2); Carbon Dioxide 23 mmol/L (22-30); Chloride 104 mmol/L (98-107); Estimated CRCL calculation 87 ml/min; Estimated Glomerular Filt Rate > 60; Glucose 125 mg/dL (65-110); Lipase 122 U/L (23-300); Potassium 3.7 mmol/L (3.4-5.0); Sodium 134 mmol/L (137-145); Total Protein 8.4 g/dL (6.3-8.2)
--- OUTSIDE RECORDS SUMMARY | 2025-06-01 06:42 | XMS_ITS | Data Portability ---
Author Organization [facility], Main Office Address [address] [place] [address] Assessment Encounter Date Assessment Date Assessment LastModified by Organization Details LastModified Time 03/17/2025 03/17/2025 Time spent with patient included: preparing to see patient by reviewing tests, obtaining and reviewing history, medical examination and evaluation, counseling and educating the patient, ordering medications and tests, documenting clinical information in EHR, independently interpreting results and communicating results to the patient for a total of 35 minutes. [email or web address] Not available 03/17/2025 15:43:11 Plan of Treatment Reminders Order Date Submit Date Provider Last Modified By Organization Details Last Modified Time Details Appointments None recorded. Lab None recorded. Referral None recorded. Procedures None recorded. Surgeries None recorded. Imaging home sleep study - Please call patient to schedule. 025 [id number] [facility], [address] [place], [address], 09:26:50 Medication Orders None recorded. Patient TargetsNo targets recorded. Patient InstructionsNo instructions recorded. Reason for Referral None Reported. Problems Name Problem SNOMED Code Status Onset Date Resolution Date Notes Provider Name and Address Organization Details Recorded Time Sleep apnea 11931010 Active 025 Minda Connolly NP [address] [facility], [address], [place], [address] , [facility] 03/17/2025 15:31:08 Problem Notes None recorded. Procedures Surgical History Date Name Laterality Status Provider Name and Address Organization Details Recorded Time 0 hysterectomy completed Stephanie Tesfaye MA [facility] 03/17/2025 15:26:53 Imaging Results None recorded. Procedure Notes None recorded. Medical Equipment None Reported. Allergies No known drug allergies Medications Name Sig Start Date Stop Date Status Note LastModified by Organization Details LastModified Time amoxicillin 500 mg capsule 03/17 completed Not Available Not Available Not Available cetirizine 10 mg tablet 03/17 completed Not Available Not Available Not Available ibuprofen 800 mg tablet 03/17 completed Not Available Not Available Not Available acetaminophen 300 mg-codeine 30 mg tablet 03/17 completed Not Available Not Available Not Available methylprednisolo ne 4 mg tablets in a dose pack 03/17 completed Not Available Not Available Not Available Vitals Date Recorded Body height Body mass index (BMI) Body weight Body temperature Heart rate Oxygen saturation Systolic And Diastolic Provider Name and Address Organization Details Last Updated DateTime 152.4 cm 37.5 kg/m2 11148.7 4 g 98.6 [degF] 99 /min 98 % 122/74 mm[Hg] Stephanie Tesfaye MA [facility] 15:28:58 Social History Question Answer Notes LastModified by Organizat ion Details LastModified Time Tobacco Smoking Status Never Smoker Stephanie Tesfaye MA null, [facility] 03/17/2025 15:25:40 What Is Your Level Of Caffeine Consumption? None Information not available 03/17/2025 In The 14 Days Before Symptom Onset, Have You Had Close Contact With A Laboratory-confirm ed COVID-19 While That Case Was Ill? No Information n ot available 03/17/2025 In The 14 Days Before Symptom Onset, Have You Had Close Contact With A Person Who Is Under Investigation For COVID-19 While That Person Was Ill? No Information not available 03/17/2025 What Type Of Diet Are You Following? REGULAR Information n ot available 03/17/2025 Do You Have An Electrostatic Air Filter? No Information not available 03/17/2025 Do You Have A Humidifier? No Information not available 03/17/2025 Do You Have Moisture Problems In Your Home? No Information not available 03/17/2025 What Was The Date Of Your Most Recent Tobacco Screening? 03/17/2025 Information not available 03/17/2025 Do You Have Any Pets? No Information not available 03/17/2025 Do You Use Your Seat Belt Or Car Seat Routinely? Yes Information not available 03/17/2025 Do You Have Smoke And Carbon Monoxide Detectors In Your Home? Yes Information not available 03/17/2025 Are You Passively Exposed To Smoke? No Information no t available 03/17/2025 Do You Use Sunscreen Routinely? No Information not available 03/17/2025 Have You Recently Traveled Abroad? No Information not available 03/17/2025 Do You Have Any Dietary Restrictions? No Information not available 03/17/2025 Sex: Female Functional Status Question Answer Note LastModified by Organizat ion Details LastModified Time Do you use any illicit or recreational drugs? No Information not available 03/17/2025 Do you or have you ever used any other forms of tobacco or nicotine? No Information not available 03/17/2025 What is your level of alcohol consumption? Occasional Information not available 03/17/2025 Have you been exposed to chemicals or toxins? not that aware of Information not available 03/17/2025 Mental Status Question Answer Note LastModified by Organization D etails LastModified Time Do you feel stressed (tense, restless, nervous, or anxious, or unable to sleep at night)? [id number] Information not available 03/17/2025 Family History Nothing Reported. Medical History No medical history recorded. Gynecological HistoryNo gynecological history recorded. Obstetrics History GPAL:G 0 P 0 0 0 0 Past Encounters Encounter ID Performer Location Encounter Start Date Encounter Closed Date Diagnosis/Indication Diagnosis SNOMED-CT Code Diagnosis ICD10 Code Diagnosis IMO Codes Diagnosis Note [id number] Geraldo De La Torre MD [facility] [address] [address] 03/17/2025 15:12:38 03/18/2025 16:50:05 Sleep apnea 26769279 G47.30 G47.33 G47.10 [id number] Sleep study order todayESS-2 4Discussed sleep hygeineAdv ised good sleep habits and patterns:- Set a goal for at least 7 to 8 hours of sleep time per day-Use the bed mainly for sleep and to go to bed only when tired. If unable to fall asleep after 30 minutes, patient should get out of bed but should not engage in any activity that requires sustained mental alertness. -Maintain a bedtime and wake-up time even on weekends or day off of work.-Avoi d excessive naps during the daytime. If a nap is necessary, limit to no more than 30 minutes.-M inimize enviroment al noise, bright lights, and extremitie s in bedroom temperatur es.-Avoid alcohol, caffeinate d beverages, and nicotine products for at least 6 hours prior to bedtime.-A void strenuous exercise and large meals for at least 4 hours prior to bedtime.-D iscussed reportable signs and symptoms of concernf/u after sleep study Body mass index 30+ - obesity 553992755 Z68.37 [id number] Encourage healthy diet and exercise to improve weightdisc ussed weight effect on sleep and sleep apnea Health Concerns Section Related Observation LastModified by Organization Detai ls LastModified Time None Recorded Concern Status LastModified by Organization Details LastModified Time None Recorded Advance Directives Directive None Recorded Payers Insurance Date Sequence Insurance Name Policy Number Policy Hylton Covered Member ID Hylton Member ID Guarantor Name 03/17/2025 1 [facility] (MEDICAID HMO) [id number] Giles Rose [id number] Giles Rose 04/23/2025 1 [facility] (PPO) [id number] Giles Rose [id number] Giles Rose Notes Date Note Type Note Provider Name and Address Organization Details Recorded Time 5 text/html Obstructive Sleep ApneaReported by PatientHPIFor associated symptoms, patient reportsmorning dry mouth,morning headache,awakening short of breath,daytime sleepiness,suddenly falling asleep during the day,excess napping,impaired work performance,gasping for air,mouth breathing,poor concentration,amnesia, andirritabilitybut reportsno postnasal drip,no dysphagia,no night sweats,no nasal congestion,no snoring,no witnessed apnea,no hyponasal speech, andno hyperactivity. For severity, patient reportsworsening. For timing, patient reportsyearly. For duration, patient [id number]. For context, patient reportsinconsistent sleep routine,shift work,family history of sleep disorder, andsleep hours per night5. For aggravating factors, patient reportspositioning. 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
--- OUTSIDE RECORDS SUMMARY | 2025-06-01 06:42 | XMS_ITS | Data Portability ---
Author Organization [facility] [place] Address [address] [place] [address] Care Team Providers Care Refuge Worker Name Role Phone LEIDA PHILIPPE () Primary Care Provider Assessment Encounter Date Assessment Date Assessment LastModified by Organization Details LastModified Time 07/26/2021 07/26/2021 normal post op exam Follow up WWChris August scheduled with Lisa vang Not available 07/26/2021 13:46:27 09/20/2021 09/20/2021 Annual gynecological exam performed. Patient will come back in a year unless there are new symptoms. [email or web address] Not available 09/20/2021 15:30:28 10/22/2024 10/22/2024 A comprehensive history and physical exam was performed today. We spent over 25 minutes [id number]. The patient was given precautions. She will contact clinic if pelvic pain increases in frequency or intensity. Also notify clinic of any new symptoms associated with pelvic pain. She does not appear to have an acute pelvic infection today, but was asked to contact us Immediately with nausea, vomiting, fever, chills. [email or web address] Not available 10/22/2024 15:06:36 Plan of Treatment Reminders Order Date Submit Date Provider Last Modified By Organization Details Last Modified Time Details Appointments None recorded. Lab culture, urine 2024 025 [facility] (Lab), [address] [facility], [place], [address], 21:20:01 unlisted lab - women's health swab plus, TISH 2024 025 [facility] (Lab), [address] [facility], [place], [address], 5 21:20:00 Referral None recorded. Procedures None recorded. Surgeries None recorded. Imaging None recorded. Medication Orders Macrobid 100 mg capsule 2024 025 [id number], [address], [place], [id number], 14:59:36 Patient TargetsNo targets recorded. Patient InstructionsNo instructions recorded. Reason for Referral None Reported. Results Created Date Observation Date Name Description Value Unit Range Abnormal Flag Note LastModifiedBy Organization Detail LastModifiedTime 09/21/1909/20/2021 IMAGE GUIDE D PAP AND HPV REGAR DLESS image guided Pap, HPV regardless of Pap result SEE RESULT S BELOW CASE REPOR T: Cytol ogy Gynec ologi lalo Repor t Case: [id number] Autho ricarrie g Provi jesús: Libia Gonzalez MD Colle cted: 09/20 1645 Order ing Locat ion: [place] [facility] Recei connor: 09/21 0140 First Scree n: Alanna correa, Shawn ed, CT Rescr een: Shaina Del Toro ret, CT Speci men: Scree valeria Pap - Image d, Cervi x STATE MENT OF ADEQU ACY: Satis facto ry for evalu ation Trans forma tion zone compo nent absen t The absen ce of an endoc ervic al compo nent was confi rmed by an addit ional scree ner. FINAL DIAGN OSIS: Negat wendy for Intra epith elial Demetri peralta or Nargis whitehead (NIL) . Praveen rao ilan d by Shaina Del Toro ret, CT on 2021 at 5:23 AM ----- ----- ----- ----- ----- ----- ----- ----- ----- ----- ----- ----- ----- ----- ----- ----- ----- ---- HPV RESUL TS: HPV mRNA E6/E7 : Inval id NOTE: This high risk HPV mRNA assay detec ts fourt een high- risk HPV types (16, 18, 31, 33, 35, 39, 45, 51, 52, 56, 58, 59, 66, 68) witho ut diffe renti ation . COMME NT: Note: This speci men was revie wed by a Cytot echno logis t and/o r Patho logis t (as indic ated in this repor t) after evalu ation using the Thinp rep Imagi ng Syste m. CLINI LALO INFOR MATIO N: Menst rual Statu s: LMP (if appli cable ): Clini lalo Histo ry/Pr eviou s Pap: Type of Neopl carmen (if appli cable ): Signi fican t Clini lalo Findi ngs: Other Histo ry: Hormo jen (if appli cable ): PAP EDUCA ROSEMARY L NOTE: The Pap Test is a scree valeria test with an inher ent false negat wendy rate. Liqui d-bas ed sampl ing may decre ase, but will not elimi syed, false negat wendy resul ts. A negat wendy resul t does not precl ude the prese nce and/o r devel opmen t of disea se, since the prese nce of abnor mal cells in the sampl e depen ds on the locat ion of the lesio n and sampl ing techn ique. Kip nued regul ar scree valeria is the best metho d of cance r preve ntion . If repor charissa cytol ogic findi ng do not corre late with physi lalo and/o r histo rical findi ngs, furth er inves tigat ion is recom david d, as aditya jolley nted. Not Available [facility] (Lab) [address], [place], [address], 09/27/2021 06:26:43 10/07/19 22 10/06/2021 HEPAT ITIS B SURFA CE ANTIG EN hepatitis B surface antigen Non-re active non-re active This assay was perfo rmed using [employer] ratio n reage nts and test kits. Value s obtai carolyn with other assay metho ds or kits canno t be used inter [facility] . Not Available [facility] (Lab) [address] [facility], [place], [address], 10/07/2021 23:09:04 10/07/19 22 10/06/2021 HEPAT ITIS C ANTIB ADEBAYO SCREE N, REFLE X TO CONFI RMATI ON hepatitis C antibody Non-re active non-re active This assay was perfo rmed using [employer] reage nts and test kits. Value s obtai carolyn with other assay metho ds or kits canno t be used inter [facility] . Not Available [facility] (Lab) [address] [facility], [place], [address], 10/07/2021 23:09:05 10/07/19 22 10/06/2021 HERPE S SIMPL EX VIRUS TYPE 2 SPECI FIC AB, IGG herpes simplex virus 2 IgG Positi ve negati ve abnormal Not Available [facility] (Lab) [address] [place], [address], 10/07/2021 23:09:05 10/07/19 22 10/06/2021 HERPE S SIMPL EX VIRUS TYPE 2 SPECI FIC AB, IGG herpes simples virus 2 IgG, quant >8.0 ai 0.0-0. 8 high Not Available [facility] (Lab) [address] [place], [address], 10/07/2021 23:09:05 10/07/19 22 10/06/2021 HIV 1/2 ANTIG EN/AN TIBOD Y, REFLE X CONFI RMATI ON HIV Ag-Ab total quant 0.07 idx <1.00 Not Available [facility] (Lab) [address] [place], [address], 10/07/2021 23:09:05 10/07/19 22 10/06/2021 HIV 1/2 ANTIG EN/AN TIBOD Y, REFLE X CONFI RMATI ON HIV Ag-Ab total Non-re active non-re active Not Available [facility] (Lab) [address], [place], [address], 10/07/2021 23:09:05 10/07/19 22 10/06/2021 HIV 1/2 ANTIG EN/AN TIBOD Y, REFLE X CONFI RMATI ON HIV-1 antibody quant 0.04 idx <1.00 Not Available [facility] (Lab) [address], [place], [address], 10/07/2021 23:09:05 10/07/19 22 10/06/2021 HIV 1/2 ANTIG EN/AN TIBOD Y, REFLE X CONFI RMATI ON HIV-1 antibody Non-re active non-re active Not Available [facility] (Lab) [address], [place], [address], 10/07/2021 23:09:05 10/07/19 22 10/06/2021 HIV 1/2 ANTIG EN/AN TIBOD Y, REFLE X CONFI RMATI ON HIV-1 antigen (P24) quant 0.07 idx <1.00 Not Available [facility] (Lab) [address], [place], [address], 10/07/2021 23:09:05 10/07/19 22 10/06/2021 HIV 1/2 ANTIG EN/AN TIBOD Y, REFLE X CONFI RMATI ON HIV-1 antigen (P24) Non-re active non-re active Not Available [facility] (Lab) [address], [place], [address], 10/07/2021 23:09:05 10/07/19 22 10/06/2021 HIV 1/2 ANTIG EN/AN TIBOD Y, REFLE X CONFI RMATI ON HIV-2 antibody quant 0.06 idx <1.00 Not Available [facility] (Lab) [address], [place], [address], 10/07/2021 23:09:05 10/07/19 22 10/06/2021 HIV 1/2 ANTIG EN/AN TIBOD Y, REFLE X CONFI RMATI ON HIV-2 antibody Non-re active non-re active HIV testi ng is perfo rmed using Multi plex[employer] Bead Immun oassa y techn ology . The final overa ll HIV Ag-Ab resul t is deter mined based on the final resul t for each indiv idual estrellita te. If any of the estrellita giuliana has 2 or more repli cates that are REACT WENDY, the final overa ll HIV Ag-Ab resul t is also React wendy. A Non-R eacti ve test resul t at any point in the inves tigat ion of indiv idual subje cts does not precl ude the possi bilit y of expos ure to or infec tion with HIV-1 and/o r HIV-2 . Non-R eacti ve resul ts can occur if the quant ity of amandae francy mcallister nt in the sampl e is below the detec tion limit s of the assay . React wendy speci mens must be inves tigat ed by addit ional , more speci fic suppl ement al tests . Speci men confi rmati on will be perfo rmed by the [facility] us HIV 1/2 Suppl ement al Assay . The perfo rmanc e of this assay has not been estab lishe d for neona giuliana and the assay shoul d not be used in indiv idual s young er than 2 years of age. Not Available [facility] (Lab) [address], [place], [address], 10/07/2021 23:09:05 10/07/1910/06/2021 RPR SCREE N/REF JACOB TITER /FTA RPR screen Nonrea ctive nonrea ctive Not Available [facility] (Lab) [address], [place], [address], 10/07/2021 23:09:06 10/07/19 22 10/06/2021 HEPAT ITIS B CORE, IGM hepatitis B core IgM antibody Negati ve negati ve Not Available [facility] (Lab) [address] [facility], [place], [address], 10/07/2021 23:09:06 10/07/19 22 10/06/2021 CT/GC AND TRICH OMONA S VAGIN INDIGO (RRNA ), SWAB chlamydia trachomatis, PCR Negati ve negati ve Not Available [facility] (Lab) [address] [facility], [place], [address], 10/08/2021 11:50:01 10/07/19 22 10/06/2021 CT/GC AND TRICH OMONA S VAGIN INDIGO (RRNA ), SWAB neisseria gonorrhoeae, PCR Negati ve negati ve Not Available [facility] (Lab) [address] [facility], [place], [address], 10/08/2021 11:50:01 10/07/19 22 10/06/2021 CT/GC AND TRICH OMONA S VAGIN INDIGO (RRNA ), SWAB trichomonas vaginalis ribosomal RNA (rrna) Positi ve negati ve abnormal Prese nce of Trich omona s vagin indigo (by NATHANIEL) Not Available [facility] (Lab) [address] [facility], [place], [address], 10/08/2021 11:50:01 11/10/19 22 11/09/2021 CT/GC AND TRICH OMONA S VAGIN INDIGO (RRNA ), SWAB chlamydia trachomatis, PCR Negati ve negati ve Not Available [facility] (Lab) [address] [facility] [facility], [place], [address], 11/10/2021 14:43:44 11/10/19 22 11/09/2021 CT/GC AND TRICH OMONA S VAGIN INDIGO (RRNA ), SWAB neisseria gonorrhoeae, PCR Negati ve negati ve Not Available [facility] (Lab) [address] [facility], [place], [address], 11/10/2021 14:43:44 11/10/19 22 11/09/2021 CT/GC AND TRICH OMONA S VAGIN INDIGO (RRNA ), SWAB trichomonas vaginalis ribosomal RNA (rrna) Negati ve negati ve Not Available [facility] (Lab) [address] [place], [address], 11/10/2021 14:43:44 10/23/19 25 10/22/2024 WOMEN 'S HEALT H SWAB PLUS, TISH bacterial vaginosis (bv), tma Positi ve negati ve abnormal Not Available [facility] (Lab) [address] [facility] [facility], [place], [address], 10/23/2024 21:20:00 10/23/19 25 10/22/2024 WOMEN 'S HEALT H SWAB PLUS, TISH sruthi species, tma Negati ve negati ve Not Available [facility] (Lab) [address] [facility] [facility], [place], [address], 10/23/2024 21:20:00 10/23/19 25 10/22/2024 WOMEN 'S HEALT H SWAB PLUS, TISH sruthi glabrata, tma Positi ve negati ve abnormal Not Available [facility] (Lab) [address] [place], [address], 10/23/2024 21:20:00 10/23/19 25 10/22/2024 WOMEN 'S HEALT H SWAB PLUS, TISH trichomonas vaginalis, tma Negati ve negati ve Not Available [facility] (Lab) [address] [place], [address], 10/23/2024 21:20:00 10/23/19 25 10/22/2024 WOMEN 'S HEALT H SWAB PLUS, ITSH chlamydia trachomatis, PCR Negati ve negati ve Not Available [facility] (Lab) [address] [place], [address], 10/23/2024 21:20:00 04/22/20 25 10/22/2024 WOMEN 'S HEALT H SWAB PLUS, TISH neisseria gonorrhoeae, PCR Negati ve negati ve Bacte rial vagin osis detec ts the follo wing bacte farzana assoc iated with bacte rial vagin osis (BV): Lacto bacil miya (L. gasse ri, L. crisp atus and L. jense venessa), Gardn erell a vagin indigo, and Atopo bium vagin ae. A singl e quali tativ e resul t is repor charissa base on instr ument softw are to deter mine BV posit wendy or negat wendy statu s. The Patsy da speci es group tests for C. albic ans, C. tropi calis , C. parap anil is, C. dubli niens is. Testi ng is perfo rmed using the Trans cript ion Media charissa Ampli ficat ion metho d. Tests for Patsy da glabr angel, Trich omona s vagin indigo, Chlam ydia trach omati s, and Neiss eria gonor rhoea e are also inclu ded in this panel . Not Available [facility] (Lab) [address], [place], [address], 10/23/2024 21:20:00 10/23/1910/22/2024 CULTU RE: URINE result report SEE RESULT S BELOW Test: Cultu re: Urine Speci men Sourc e: Urine - Clean Catch Speci men Type: Urine Speci men Date: 2024 1420 Resul t Date: 2024 2016 Resul t Statu s: Final resul t Abnor mal: No Resul ting Lab: [facility] [address] [facility] [address] Tel: CULTU RE ----- ----- ----- --- No growt h in 1 day (dete ction level of 10,00 0 colon ies / ml.) Not Available [facility] (Lab) [address] , [place], [address], 10/23/2024 21:20:01 Result Notes None recorded. Problems Name Problem SNOMED Code Status Onset Date Resolution Date Notes Provider Name and Address Organization Details Recorded Time Trichomo nal vulvovag initis 46105363 Completed 201709/04/2020 Trichomo nal vulvovag initis;R ecorded Elsewher e: No Locat ion: [facility] S ource: EHR Director [employer] talib: N Practi ce ID: 0001 Hermann lable Time: 01:00:00 PM [address]en [address]usto [facility] 11:05:[address] Concept Completed 201709/04/2020 Encntr for ob gyn physician assistant exam (general ) (routine ) w/o abn findings ;Recorde d Elsewher e: No Locat ion: [facility] S ource: EHR Director [employer] talib: N Practi ce ID: 0001 Hermann lable Time: 01:00:00 PM Doreen Frausto [facility] 11:01:[address] Concept Completed 201709/04/2020 Encntr for general adult medical exam w/o abnormal findings ;Recorde d Elsewher e: No Locat ion: [facility] S ource: EHR Director [employer] talib: N Practi ce ID: 0001 Hermann lable Time: 01:00:00 PM Doreen Frausto [facility] 11:01:15 Body mass index 30+ - obesity 122806743 Completed 201706/24/2021 Body mass index (BMI) 33.0-33. 9, adult;Re corded Elsewher e: No Locat ion: [facility] S ource: EHR Director [employer] talib: N Practi ce ID: 0001 Hermann lable Time: 01:00:[address] [facility] 13:01:08 Sexual function painful Completed 201809/04/2020 Dyspareu billy;Yehuda rded Elsewher e: No Locat ion: [facility] S ource: EHR Director [employer] talib: N Jamaalti ce ID: 0001 Hermann lable Time: 02:45:00 PM Doreen Frausto [facility] 11:01:19 Pregnanc y test negative [id number] Completed 201809/04/2020 Encounte r for pregnanc y test, result negative ;Recorde d Elsewher e: No Locat ion: [facility] S ource: [facility] talib: N Practi ce ID: 0001 Hermann lable Time: 04:30:00 PM Doreen Frausto [facility] 11:01:24 Pelvic and perineal pain [id number] Completed 201809/04/2020 Pelvic and perineal pain;Rec orded Elsewher e: No Locat ion: [facility] S ource: EHR Director [employer] talib: N Jamaalti ce ID: 0001 Hermann lable Time: 04:30:00 PM Doreen Frausto [facility] 11:01:31 Uterine leiomyom a 33987813 Completed 201806/24/2021 Leiomyom a of uterus, unspecif ied;Yehuda rded Elsewher e: No [facility] EHR Director [employer] talib: N Jamaalti ce ID: 0001 Hermann lable Time: 10:00:00 AM Hollie Askew [facility] 13:01:14 Hypertro phy of uterus 064828363 Completed 201806/24/2021 Hypertro phy of uterus;R ecorded Elsewher e: No [facility] Jamaalti ce ID: 0001 Hermann lable Time: 10:00:00 AM Hollie Askew [facility] 13:01:12 Chest pain [id number] Completed 201806/24/2021 Chest pain;Rec orded Elsewher e: No [facility] N Practi ce ID: 0001 Hermann lable Time: 03:45:[address]w [facility] 13:01:10 Finding of pattern of menstrua l cycle Completed 201809/04/2020 Excessiv e and frequent menstrua tion with irregula r cycle;Pr actice ID: [address] [facility] 11:01:36 Anemia due to chronic blood loss 150898938 Completed 201806/24/2021 Iron deficien cy anemia secondar y to blood loss (chronic );Practi ce ID: [address] [facility] 13:01:06 Acute pulmonar y embolism 702590698 Completed 201806/24/2021 Pulmonar y embolism ;Recorde d Elsewher e: No Locat ion: [facility] N Practi ce ID: 0001 Hermann lable Time: 11:00:00 AM Hollie Askew [facility] 13:01:03 Anemia 214352921 Completed 201906/24/2021 Anemia;R ecorded Elsewher e: No Locat ion: [facility] S ource: EHR Director [employer] talib: N Practi ce ID: 0001 Hermann lable Time: 11:15:00 AM Hollie [facility] 13:01:04 Abnormal uterine bleeding [id number] 100 Completed 201909/04/2020 Dysfunct ional vaginal hemorrha ge;Recor ded Elsewher e: No Locat ion: [facility] S ource: EHR Director [employer] talib: N Practi ce ID: 0001 Hermann lable Time: 11:15:00 AM Doreen hein [facility] 1 11:03:45 Finding of menstrua l bleeding Completed 201909/04/2020 Excessiv e and frequent menstrua tion with regular cycle;Pr actice ID: 0001 [facility] 11:01:39 Procedur e on genitour inary system Completed 201909/04/2020 Encounte r for surgical aftcr followin g surgery on the sys;Prac laron ID: 0001 Doreen hein [facility] 11:01:22 Postoper ative care Completed 201909/04/2020 Encounte r for surgical aftcr followin g surgery on the sys;Prac laron ID: [address] [facility] 11:01:27 Problem Notes None recorded. Procedures Surgical History Date Name Laterality Status Provider Name and Address Organization Details Recorded Time 06/02/[address] O[address] C[address] [facility] 09/20/2021 15:39:22 09/05/19 Date of Last Pap Smear completed [facility] 09/08/2021 12:36:31 07/17/19 20 total abdominal hysterectomy completed [facility] 09/04/2020 11:02:39 Imaging Results None recorded. Procedure Notes None recorded. Medical Equipment None Reported. Allergies No known drug allergies Medications Name Sig Start Date Stop Date Status Note LastModified by Organization Details LastModified Time amoxicill in 500 mg capsule 06/30 completed Not Available Not Available Not Available cetirizin e 10 mg tablet 07/26 completed Not Available Not Available Not Available ibuprofen 800 mg tablet 06/30 completed Not Available Not Available Not Available hydrocodo ne 5 mg-acetam inophen 325 mg tablet take 1-2 tablet by oral route every 6 hours as needed for pain 07/26 completed Not Available Not Available Not Available Loestrin 1.5/30 (21) 1.5 mg-30 mcg tablet take 1 tablet by oral route every day 05/28 completed Prescrib ed Elsewher e: No Locat ion: [facility] odify By: [email or web address] Dias r DateTime : 01/15/20 11:00:00 AM Not Available Not Available Not Available metronida zole 500 mg tablet Take 1 tablet twice a day by oral route for 7 days. 2024 active Not Available Not Available Not Avai lable acetamino phen 300 mg-codein e 30 mg tablet 07/26 completed Not Available Not Available Not Available Macrobid 100 mg capsule Take 1 capsule every 12 hours by oral route for 7 days. 2024 active Not Available Not Available Not Avai lable cephalexi n 500 mg capsule Take 1 capsule 3 times a day by oral route for 10 days. 07/26 completed Not Available Not Available Not Available Cipro 500 mg tablet take 1 tablet by oral route twice a day for 5 days 06/24 completed Prescrib ed Elsewher e: No [facility] By: chapincito christy DateTime : 07/30/19 02:36:19 PM Not Available Not Available Not Available ibuprofen 600 mg tablet 09/20 completed Not Available Not Available Not Available methylpre dnisolone 4 mg tablets in a dose pack 07/26 completed Not Available Not Available Not Available Vitamin D2 1,250 mcg (50,000 unit) capsule take 1 capsule by oral route every week 10/16 completed Prescrib ed Elsewher e: No [facility] By: smcstella Dias r DateTime : 06/08/20 01:28:16 PM Not Available Not Available Not Available enoxapari n 40 mg/0.4 mL subcutane ous syringe 06/30 completed Not Available Not Available Not Available Lovenox 300 mg/3 mL subcutane ous solution inject by subcutan eous route every 12 hours 09/04 completed Prescrib ed Elsewher e: Yes Loca tion: [facility] odify By: deangelo Dias r DateTime : 05/28/20 02:45:00 PM Not Available Not Available Not Available iron 325 mg (65 mg iron) tablet take 1 tablet by oral route every day 09/04 completed Prescrib ed Elsewher e: Yes Loca tion: [facility] odify By: deangelo Cancinote r DateTime : 05/28/20 02:45:00 PM Not Available Not Available Not Available Alyacen 1/35 (28) 1 mg-35 mcg tablet take 3 tablets daily for 2 days, then take 2 tablets daily for 2 days, then take one tablet once daily skipping placebo pills 05/28 completed Prescrib ed Elsewher e: No Locat ion: [facility] odify By: deangelo Dias r DateTime : 10/18/19 01:46:53 PM Not Available Not Available Not Available Vitals Date Recorded Body height Body mass index (BMI) Body weight Systolic And Diastolic Provider Name and Address Organization Details Last Updated DateTime 07/26/2021 157.48 cm 33.8 kg/m2 63912.59 g 129/87 mm[Hg] Nerissa Flores [facility] 07/26/2021 11:23:54 Date Recorded Body height Body mass index (BMI) Body weight Systolic And Diastolic Provider Name and Address Organization Details Last Updated DateTime 09/20/2021 157.48 cm 34 kg/m2 05890.18 g 126/91 mm[Hg] [facility] 09/20/2021 15:38:35 Date Recorded Body height Body mass index (BMI) Body weight Systolic And Diastolic Provider Name and Address Organization Details Last Updated DateTime 10/06/2021 157.48 cm 34 kg/m2 43709.18 g 130/91 mm[Hg] [facility] 10/06/2021 15:53:02 Date Recorded Body height Body mass index (BMI) Body weight Systolic And Diastolic Provider Name and Address Organization Details Last Updated DateTime 10/22/2024 157.48 cm 36 kg/m2 23628.7 g 132/91 mm[Hg] Akiko Cruz [facility] 10/22/2024 14:46:15 Date Recorded Body height Body mass index (BMI) Body weight Systolic And Diastolic Provider Name and Address Organization Details Last Updated DateTime 11/09/2021 157.48 cm 34.4 kg/m2 56403.37 g 132/87 mm[Hg] Doreen Frausto [facility] 11/09/2021 11:22:54 Social History Question Answer Notes LastModified by Organizat ion Details LastModified Time Tobacco Smoking Status Never Smoker [facility] 11:02:05 Are You Blind Or Do You Have Difficulty Seeing? No Information not available 06/24/2021 What Is Your Level Of Caffeine Consumption? Occasional Information not available 06/24/2021 Are You Deaf Or Do You Have Serious Difficulty Hearing? No Information not available 06/24/2021 What Type Of Diet Are You Following? REGULAR Information not available 06/24/2021 Do You Use Your Seat Belt Or Car Seat Routinely? Yes Information not available 06/24/2021 Are You Sexually Active? Yes Information not available 06/24/2021 Do You Have Smoke And Carbon Monoxide Detectors In Your Home? Yes Information not available 06/24/2021 Do You Use Sunscreen Routinely? Yes Information not available 06/24/2021 Sex: Unknown Functional Status Question Answer Note LastModified by Organizat ion Details LastModified Time Do you use any illicit or recreational drugs? No Information not available 06/24/2021 What is your level of alcohol consumption? Occasional Information not available 06/24/2021 Are you able to walk independently without assistance or assistive devices? YESWOREST Information not available 06/24/2021 What is your exercise level? Occasional Information not available 06/24/2021 Mental Status Question Answer Note LastModified by Organization D etails LastModified Time Do you feel stressed (tense, restless, nervous, or anxious, or unable to sleep at night)? [id number] Information not available 06/24/2021 Family History Relationship Description Onset Age of this Age Resolved Age Notes LastModified by Organization Details LastModified Time Mother Diabetes mellitus [email or web address] Not available 2020 10:42:27 Father Diabetes mellitus [email or web address] Not available 2020 10:42:27 Sister Asthma [email or web address] Not available 09/04/2020 10:42:38 Sister Hypertensive disorder [email or web address] Not available 2020 10:42:48 Maternal Aunt Asthma [email or web address] Not gilbert ilable 09/04/2020 10:43:00 Maternal Aunt Disorder of thyroid gland [email or web address] Not available 2020 10:43:33 Maternal Uncle Asthma [email or web address] Not available 09/05/19 10:43:12 Medical History Condition Response History of STI Y Gynecological History Statement/Question Response STIs/STDs Y Date of Last Pap Smear 09/04/2020 Current Control Method Hysterectom y Sexually Active? Y Obstetrics History GPAL:G 2 P 0 0 1 2 Type Value Multiple Births 1 Induced 1 Living 2 Total 2 Past Encounters Encounter ID Performer Location Encounter Start Date Encounter Closed Date Diagnosis/Indication Diagnosis SNOMED-CT Code Diagnosis ICD10 Code Diagnosis IMO Codes Diagnosis Note [id number] Humberto Gonzalez MD [facility] [address] [address] 09/04/2020 10:49:21 09/04/2020 12:34:33 Gynecologic examination [id number] Z01.419 This patient is here for her annual exam. A thorough history was taken. A physical exam was performed. Age appropriat e routine health screening was ordered, performed, and discussed. Recommende d testing was ordered. She was asked to follow up in one year. She will be informed of any test results. Pap - today [id number] [facility] [address] [address] 06/29/2021 10:25:36 06/29/2021 10:27:12 [id number] Anitha Ludwig MD [facility] [address],[place] [address] 06/30/2021 16:08:37 07/02/2021 18:20:46 Postoperative visit [id number] Z09 Wound cellulitis [id number] 03 L03.90 [id number] Anitha Ludwig MD [facility] [address],[place] [address] 07/26/2021 11:06:15 07/26/2021 13:47:05 Postoperative visit [id number] Z09 [id number] Humberto Gonzalez MD [facility] [address],[place] [address] 09/20/2021 15:27:24 09/20/2021 16:42:14 Gynecologic examination [id number] Z01.419 This patient is here for her annual exam. A thorough history was taken. A physical exam was performed. Age appropriat e routine health screening was ordered, performed, and discussed. Recommende d testing was ordered. She was asked to follow up in one year. She will be informed of any test results. Pap - today [id number] Humberto Gonzalez MD [facility] [address],[place] [address] 10/06/2021 15:47:30 10/06/2021 16:30:30 Venereal disease screening 206925438 Z11.3 this patient is a 35-year-ol d female presents for STD screening. She is concerned about recent exposure to possible sexual transmitte d infection. We obtained a sample of the vaginal discharge. The vulva and distal vagina appeared normal. Blood testing for HIV, hepatitis syphilis, and herpes will be performed as well. She/we will follow-up on those rules and contact patient with those result [id number] Humberto Gonzalez MD [facility] [address],[place] [address] 11/09/2021 11:04:34 11/09/2021 17:45:16 Venereal disease screening 140008585 Z11.3 This patient is a 36-year-ol d female who presents for test of cure. She was treated for chlamydia. Swabs were obtained today. The vulva and distal vagina appear normal. Will follow-up on the results and provide those results to the patient. She has no complaints at this time. [id number] Humberto Gonzalez MD [facility] [address] [address] 10/22/2024 14:34:15 10/22/2024 15:09:00 Pain in pelvis 40859264 R10.2 If all testing for infections are negative and patient still having pelvic pain, discussed pelvic ultrasound to rule out ovarian abnormalit ies. Hx of partial hysterecto my. Urinary sy stem finding [id number] R39.9 [id number] Patient presents with symptoms of UTI. Advised to drink clear fluids, Tylenol for pain and take prescribed medication s as instructed . Patient encouraged to follow up within 1 week if not improving. Will send urine culture to confirm infection. Venereal d isease screening [id number] Z11.3 [id number] Pt requested STI testing for gc/ct/tric h.Discusse d the various types of STDs, related symptoms and the potential consequenc es (including effects on fertility) of STD infections . Reviewed ways to limit exposure and prevention techniques . Vaginal discharge 549622 006 N89.8 62220 Will test for yeast and BV based on physical exam findings.D iscussed vulvar care guidelines in addition to laundry/sk in irritants to avoid.Will await results prior to treatment. Health Concerns Section Related Observation LastModified by Organization Detai ls LastModified Time None Recorded Concern Status LastModified by Organization Details LastModified Time None Recorded Advance Directives Directive None Recorded Payers Insurance Date Sequence Insurance Name Policy Number Policy Hylton Covered Member ID Hylton Member ID Guarantor Name 10/22/2024 1 [facility] [id number] Giles Rose [id number] Giles Rose 10/22/2024 1 [facility] [id number] Giles Rose [id number] Giles Rose 10/22/2024 1 [facility] (MEDICAID HMO) [id number] Giles Rose [id number] Giles Rose Notes Date Note Type Note Provider Name and Address Organization Details Recorded Time 07/26/19 22 text/htm l post op LSC, iatrogenic colotomy, laparotomy, bowel resection and primary anastomosis, and drainage of ovarian cyst on 12/23. took keflex 3 weeks ago, no issues with incision now. feeling really good,back to work monday. Anitha Ludwig MD [address], [place], [address], [facility] 07/26/2021 13:46:43 09/21/19 22 text/htm l Annual GYNReported by PatientHistoryFor history, patient reportsno gynecologic complaints.Genitourinary symptomsFor urinary symptoms, patient reportsno hematuriaandno incontinence. For vulva, patient reportsno genital lesion. For vagina, patient reportsnormal vaginal discharge.Breast symptomsFor breast, patient reportsno breast pain,no breast lump, andno nipple discharge.Endocrine symptomsFor sexual complaints, patient reportsno sexual complaintsandno pain during intercourse. For menopausal symptoms, patient reportsno menopausal symptomsandnormal vaginal lubrication.Psychological symptomsFor psychological symptoms, patient reportsno depressionandno anxiety.Preventative measuresFor preventive measures, patient reportsencourage self breast examinationandencourage regular exercise. Humberto Gonzalez MD [address], [place], [address], [facility] 09/20/2021 16:07:40 10/07/19 22 text/htm l this patient is a 35-year-old female presents for STD screening. She is concerned about recent exposure to possible sexual transmitted infection. We obtained a sample of the vaginal discharge. The vulva and distal vagina appeared normal. Blood testing for HIV, hepatitis syphilis, and herpes will be performed as well. She/we will follow-up on those rules and contact patient with those result Humberto Gonzalez MD [address], [place], [address], [facility] 10/06/2021 16:29:12 11/10/19 22 text/htm l This patient is a 36-year-old female who presents for test of cure. She was treated for chlamydia. Swabs were obtained today. The vulva and distal vagina appear normal. Will follow-up on the results and provide those results to the patient. She has no complaints at this time. Humberto Gonzalez MD [address], [place], [address], [place] [facility] 11/09/2021 17:34:00 10/23/19 25 text/htm l 39 y/o female presents with c/o lower abdominal and back pain when urinating x 1 week. Patient states that she feels pelvic pressure intermittently. Denies dysuria, frequency, or urgency.Neg N/V/F/C/DNeg Vag d/c, odor, irritation, itchingHx hysterectomy in 2019 for fibroids, still has bilateral ovariesPatient does reports history of ovarian cysts JUAN ASENCIO, ALEJANDRINA [address], [place], [address], [facility] 10/22/2024 15:07:06 OBGyn Episode Ob Episode Information Episode Created Date Number of Fetuses Patient Bloodtype Patient rh Status Prepregnancy Weight lbs Domestic Partner Domestic Partner Phone Father Name Grain Manager Status 09/05/19 21 1 CLOSED Fetus Data First Name Last Name Admitted to NICU Weight (g) Sex Living Outcome Pediatric Complications Fetus ID Race Codes Race Delivery Type , Induced [id number] Joe Calculation Initial Joe Date Initial Exam Date Initial Exam Provider Initial Ultrasound Date Last Menstrual Period Date Ultra Sound Weeks Gestation 0 Eighteen To Twenty Week Joe Update Ultra Sound Date Fundal Height At Umbil Quickening Date Ultra Sound Latest Weeks Gestation Final Joe Confirmed By Final Joe Confirmed Date Final Joe Date Ultra Sound Latest Days Gestation 0 0 Menstrual History Last Menstrual Date Menses Monthly On Bcp Conception Prior Menses Frequency Hcg Plus Date Menarche Onset Age Delivery Information Delivery Date Delivery Type Labor Anesthesia Weeks Gestation Incision Type Labor Labor Length Hrs Delivered By Post Complications Tubal Sterilization Discharge Date Comments 0 Discharge Information Feeding Method Contraceptive Method Maternal HG B and HCT Levels Ob Episode Information Episode Created Date Number of Fetuses Patient Bloodtype Patient rh Status Prepregnancy Weight lbs Domestic Partner Domestic Partner Phone Father Name Grain Manager Status 09/05/19 21 1 CLOSED Fetus Data First Name Last Name Admitted to NICU Weight (g) Sex Living Outcome Pediatric Complications Fetus ID Race Codes Race Delivery Type M [id number] Repeat Joe Calculation Initial Joe Date Initial Exam Date Initial Exam Provider Initial Ultrasound Date Last Menstrual Period Date Ultra Sound Weeks Gestation 0 Eighteen To Twenty Week Joe Update Ultra Sound Date Fundal Height At Umbil Quickening Date Ultra Sound Latest Weeks Gestation Final Joe Confirmed By Final Joe Confirmed Date Final Joe Date Ultra Sound Latest Days Gestation 0 0 Menstrual History Last Menstrual Date Menses Monthly On Bcp Conception Prior Menses Frequency Hcg Plus Date Menarche Onset Age Delivery Information Delivery Date Delivery Type Labor Anesthesia Weeks Gestation Incision Type Labor Labor Length Hrs Delivered By Post Complications Tubal Sterilization Discharge Date Comments 3 Discharge Information Feeding Method Contraceptive Method Maternal HG B and HCT Levels Ob Episode Information Episode Created Date Number of Fetuses Patient Bloodtype Patient rh Status Prepregnancy Weight lbs Domestic Partner Domestic Partner Phone Father Name Grain Manager Status 09/05/19 21 1 CLOSED Fetus Data First Name Last Name Admitted to NICU Weight (g) Sex Living Outcome Pediatric Complications Fetus ID Race Codes Race Delivery Type F Full Term [id number] Primary Joe Calculation Initial Joe Date Initial Exam Date Initial Exam Provider Initial Ultrasound Date Last Menstrual Period Date Ultra Sound Weeks Gestation 0 Eighteen To Twenty Week Joe Update Ultra Sound Date Fundal Height At Umbil Quickening Date Ultra Sound Latest Weeks Gestation Final Joe Confirmed By Final Joe Confirmed Date Final Joe Date Ultra Sound Latest Days Gestation 0 0 Menstrual History Last Menstrual Date Menses Monthly On Bcp Conception Prior Menses Frequency Hcg Plus Date Menarche Onset Age Delivery Information Delivery Date Delivery Type Labor Anesthesia Weeks Gestation Incision Type Labor Labor Length Hrs Delivered By Post Complications Tubal Sterilization Discharge Date Comments 1 Discharge Information Feeding Method Contraceptive Method Maternal HG B and HCT Levels
--- OUTSIDE RECORDS SUMMARY | 2025-06-01 06:42 | XMS_ITS | Clinical Summary ---
Author Organization [facility] [address] Address [address] [place] [address] Care Team Providers Care Lining Cementer Name Role Phone Humberto Gonzalez MD Unavailable [phone] Prashanth Reid MD Primary Care Provider Allergies No known active allergies Medications enoxaparin (LOVENOX) 80 mg/0.8 mL syringe Inject 0.8 mL (80 mg total) under the skin every 12 (twelve) hours 60 Syringe 5 01/18/2019 Active enoxaparin (LOVENOX) 80 mg/0.8 mL syringeIndicatio ns:VTE Prophylaxis Inject 0.79 mL (79 mg total) under the skin every 12 (twelve) hours 60 Syringe 5 01/18/2019 Active multivitamin tablet daily Active ferrous sulfate 325 mg (65 mg of elemental iron) tablet Take 325 mg by mouth daily Active Active Problems Problem Noted Date Diagnosed Date Fibroids Surgical History Surgery Date Site/Laterality Comments SECTION x2 INSERT VENA CAVA FILTER 01/18/2019 N/A Medical History Medical History Date Comments Iron deficiency anemia On FeSO4 Menorrhagia Excessive and fr equent menstruation with irregular cycle, in the setting of fibroids Leiomyoma Leiomyoma of daja yazan, unspecified location Pulmonary embolism, bilateral (HCC) 01/11/2019 Started on eliquis Social History Tobacco Use Types Packs/Day Years Used Date Smoking Tobacco: Never Smokeless Tobacco: Never Alcohol Use Standard Drinks/Week Comments Not Currently 0 (1 standard drink = 0.6 oz pur e alcohol) Comments No Sex and Gender Information Value Date Recorded Sex Assigned at Not on file Legal Sex Female 2:02 AM SEXUAL HEALTH PHYSICIAN Gender Identity Not on file Sexual Orientation Not on file Last Filed Vital Signs Vital Sign Reading Time Taken Comments Blood Pressure 123/86 01/19/2019 9:05 AM CDT Pulse 90 01/19/2019 9:05 AM CDT Temperature 37 C (98.6 F) 01/19/2019 9:05 AM CDT Respiratory Rate 18 01/19/2019 9:05 AM CDT Oxygen Saturation 100% 01/19/2019 9:05 AM CDT Inhaled Oxygen Concentration - - Weight 79.4 kg (175 lb) 01/17/2019 5:35 PM CDT Height 157.5 cm (5' 2) 01/17/2019 5:35 PM CDT Body Mass Index 32.01 01/17/2019 5:35 PM CDT Plan of Treatment Not on file Medical Devices Implanted Type Area Airline Hostess Device Identifier Shelf Expiration Date Model / Serial / Lot [employer] [id number] Bulloch Delivery Kit Vena Cava Jugular Filter Embolization Nitinol Latex Free - [id number] Implanted:Qty: 1 on 01/18/2019 at [facility] [employer] 10/30/2021 [id number] / / [id number] Insurance [facility] IDPA Advance Directives For more information, please contact: [phone] * Full Code (Latest Code Status on File) Date Activated Date Inactivated Comments 01/17/2019 12:18 PM 01/19/2019 1:56 PM Care Teams Lining Cementer Relationship Specialty Start Date End Date Prashanth Reid MD [address] [place] [id number] PCP - General Internal Medicine 09/02/20 Humberto Gonzalez MD [address] [place] [address] Obstetrics and Gynecology 01/17/19
--- OUTSIDE RECORDS SUMMARY | 2025-06-01 06:42 | XMS_ITS | Clinical Summary ---
Author Organization [facility] Address [address], [address] [place] [address] Phone Care Team Providers Care Bilingual Secretary Name Role Phone Prashanth Reid MD Primary Care Provider Allergies No known active allergies Medications enoxaparin (LOVENOX) 80 MG/0.8ML Solution 80 mg by Subcutaneous route 2 times daily. Active Active Problems Problem Noted Date Diagnosed Date Iron deficiency anemia bjorn jacobs to inadequate dietary iron intake 03/21/2019 Family History Medical History Relation Name Comments Kidney Disease Father Relation Name Status Comments Brother Alive Daughter Alive Father Alive On Dialysis Mother Alive Sister Alive Son Alive Social History Tobacco Use Types Packs/Day Years Used Date Smoking Tobacco: Never Smokeless Tobacco: Never Alcohol Use Standard Drinks/Week Comments Yes 0 (1 standard drink = 0.6 oz pur e alcohol) 4 glasses per week PHQ-2 Answer Date Recorded PHQ-2 Score 0 07/04/2019 Sexually Active Control Partners Comments Yes Comments Unknown Sex and Gender Information Value Date Recorded Sex Assigned at Not on file Legal Sex Female 12:50 PM CDT Gender Identity Not on file Sexual Orientation Not on file Last Filed Vital Signs Vital Sign Reading Time Taken Comments Blood Pressure 118/84 08/08/2019 1:44 PM AMALGAMATOR Pulse 68 08/08/2019 1:44 PM AMALGAMATOR Temperature 36.4 C (97.5 F) 08/08/2019 1:44 PM AMALGAMATOR Respiratory Rate 18 08/08/2019 1:44 PM AMALGAMATOR Oxygen Saturation 98% 08/08/2019 1:44 PM AMALGAMATOR Inhaled Oxygen Concentration - - Weight 75.4 kg (166 lb 3.2 oz) 08/08/2019 1:44 P M AMALGAMATOR Height 152.4 cm (5') 08/08/2019 1:44 PM AMALGAMATOR Body Mass Index 32.46 08/08/2019 1:44 PM AMALGAMATOR Plan of Treatment Health Maintenance Due Date Last Done Comments Hepatitis C Virus (HCV) Screening 1985 TdaP Immunization 1985 Varicella Immunization (1 of 2 - 13+ 2-dose series) 1998 Hepatitis B Immunization (1 of 3 - 19+ 3-dose series) 2004 Human Papillomavirus (HPV) Immunization (1 - 3-dose SCDM series) 2012 Influenza Immunization (#1) 2025 SARS-COV-2 Immunization ( - season) 2025 Respiratory Syncytial Virus (RSV) Immunization (Adult) (1 - 1-dose 75+ series) 2060 Meningococcal Immunization (ACWY) Aged Out No longer eligible based on patient's age to complete this topic Pneumococcal Immunization Combined Aged Out No longer eligible based on patient's age to complete this topic Rotavirus Immunization Aged Out No lo nger eligible based on patient's age to complete this topic Insurance Care Teams Bilingual Secretary Relationship Specialty Start Date End Date Prashanth Reid MD [address] [place] [address] PCP - General Internal Medicine 02/05/19
--- OUTSIDE RECORDS SUMMARY | 2025-06-01 06:42 | XMS_ITS | Clinical Summary ---
Author Organization [facility] [employer] Address [address] [place] [address] Care Team Providers Care Ranch Manager Name Role Phone Damián Cavazos MD Primary Care Provider [phone] Source Comments [facility] [employer],non-owned Affiliates and Associated Physician Practices is amultiple site organization consisting of ambulatory clinics and hospital sitesin [place], [place], [place] and [place]. This disclosure is being madepursuant to the Care Everywhere program and may not contain all information available regarding this patient. Last updated 18.[facility] [employer] [employer] Allergies No known active allergies Medications * Be aware that medications may not be up to date on this document. Alwaysverify current medications with the patient. enoxaparin (LOVENOX) injection Inject 80 mg subcutaneously once daily Active ferrous sulfate 325 (65 FE) MG tablet Take 325 mg by mouth once daily Active budesonide-for moterol (Symbicort) 160-4.5 MCG/ACT inhaler Inhale 2 (two) puffs by mouth 2 times daily 6 g 2 5 Active topiramate (Topamax) 25 MG tabletIndicati ons:Migraine Take 1 (one) tablet by mouth 2 times daily Reasons: Migraine Headache 180 tablet 4 5 Active albuterol HFA (ProAir HFA) 108 (90 Base) MCG/ACT inhaler Inhale 2 (two) puffs by mouth every 4 hours as needed for Shortness of Breath or Wheezing 8.5 g 2 Active Active Problems Problem Noted Date Diagnosed Date Abdominal pain 04/21/2025 Bacterial vaginosis 04/21/2025 Enlarged uterus 04/21/2025 Fibroids 04/21/2025 Ovarian mass, left 04/21/2025 Postop check 04/21/2025 S/P laparotomy 04/21/2025 Sigmoid colon injury 04/21/2025 Trichomoniasis 04/21/2025 Iron deficiency anemia bjorn jacobs to inadequate dietary iron intake 03/21/2019 Gonorrhea 10/26/2017 Anemia 10/23/2017 Dysmenorrhea 10/23/2017 Edema of lower extremity 10/23/2017 Chlamydial infection 04/20/2017 Acanthosis nigricans 03/07/2017 Fatigue 03/07/2017 Large breasts 03/07/2017 Obesity 03/07/2017 Pulmonary emboli Encounters Date Type Department Care Team Description 04/21/2025 3:40 PM CDT Office Visit [facility] - Family Medicine [address] [place] [address], [address] [place] [address] Damián Cavazos MD Shortness of breath (Primary Dx); Nonintractable headache, unspecified chronicity pattern, unspecified headache type; Pap smear for cervical cancer screening; Wellness examination; Wheezing; Encounter for contraceptive management, unspecified type; History of pulmonary embolism from Last 3 Months Family History Medical History Relation Name Comments None Known Brother 1 None Known Brother 2 None Known Brother 3 None Known Brother 4 None Known Brother 5 Asthma Daughter Renal Disease Father Asthma Sister 1 None Known Sister 2 None Known Sister 3 None Known Sister 4 Relation Name Status Comments Brother 1 Alive Brother 2 Alive Brother 3 Alive Brother 4 Alive Brother 5 Alive Daughter Alive Father Maternal Grandfather Maternal Grandmother Mother Alive Paternal Grandfather Paternal Grandmother Sister 1 Alive Sister 2 Alive Sister 3 Alive Sister 4 Alive Social History Tobacco Use Types Packs/Day Years Used Date Smoking Tobacco: Never Smokeless Tobacco: Never Tobacco Cessation:Counseling Given: Not Answered Alcohol Use Standard Drinks/Week Comments Yes 0 (1 standard drink = 0.6 oz pur e alcohol) Comments No Sex and Gender Information Value Date Recorded Sex Assigned at Not on file Legal Sex Female 5:26 PM [employer] Gender Identity Not on file Sexual Orientation Not on file Last Filed Vital Signs Vital Sign Reading Time Taken Comments Blood Pressure 130/93 04/21/2025 3:46 PM CDT Pulse 88 04/21/2025 3:46 PM CDT Temperature 36.6 C (97.8 F) 04/21/2025 3:46 PM CDT Respiratory Rate - - Oxygen Saturation - - Inhaled Oxygen Concentration - - Weight 89.3 kg (196 lb 12.8 oz) 04/21/2025 3:46 PM CDT Height 152.4 cm (5') 04/21/2025 3:46 PM CDT Body Mass Index 38.43 04/21/2025 3:46 PM CDT Plan of Treatment Health Maintenance Due Date Last Done Comments HIV SCREENING 2000 HEPATITIS C SCREENING 10/17/2003 DTAP/TDAP/TD VACCINES (1 - Tdap) 2004 HEPATITIS B VACCINE (1 of 3 - 19+ 3-dose series) 2004 HPV VACCINE (1 - 3-dose SCDM series) 2012 DEPRESSION SCREENING 07/03/2024 COVID-19 VACCINE (1 - 2024-2 6 season) 2025 INFLUENZA VACCINE (#1) 2025 ZOSTER VACCINE (1 of 2) 10/22/2035 HIB VACCINE Aged Out No longer eligi ble based on patient's age to complete this topic MENINGOCOCCAL (Group B) VACC INE SHARED DECISION-MAKING Aged Out No longer eligibl e based on patient's age to complete this topic MENINGOCOCCAL GROUPS A/C/Y/W VACCINE Aged Out No longer eligible b ased on patient's age to complete this topic PNEUMOCOCCAL VACCINE Aged Out No long er eligible based on patient's age to complete this topic Insurance [facility] Care Teams Ranch Manager Relationship Specialty Start Date End Date Damián [place] [id number] [phone] PCP - General Family Medicine 04/21/25
--- OUTSIDE RECORDS SUMMARY | 2025-06-01 06:43 | XMS_ITS | Data Portability ---
Author Organization MCKAYLA Conner VILLANUEVA Address [address] [place] [address] Care Team Providers Care Consulting Technical Director Name Role Phone [facility] University Intern RADHA IRELAND Measurer Machine Assessment No assessment recorded. Plan of Treatment Reminders Order Date Submit Date Provider Last Modified By Organization Details Last Modified Time Details Appointments None recorded . Lab CMP, serum or plasma 2024 025 oamobifriendso [facility], [address] [place], [place] [address], [address], [place], [address], 09:26:43 CBC 2024 025 KATARINA [facility], [address] [facility], [address], [place], [address], 5 09:25:57 urinalys is macro (dipstic k) panel, urine 2024 025 oamobifriendso [facility], [address] [facility], [address], [place], [address], 5 09:26:54 vitamin B12, serum 2024 025 oaInventergy [facility], [address] [facility], [address], [place], [address], 5 09:26:35 vitamin D, 25-hydro xy, total, serum 2024 [facility], [address] [address], [address], [place], [address], 5 09:27:00 HbA1c (hemoglo bin A1c), blood 2024 oao [facility], [address] [facility] [address], [address], [place], [address], 5 09:27:07 Referral plastic surgeon referral - Patient desires breast reductio n due to chronic upper back pain 2020 [facility], [address] [place], [address], 1 10:35:23 plastic surgeon referral - Patient desires breast reductio n due to chronic upper back pain 2020 [facility]21 [facility], [address] [place], [address], 1 10:45:25 Procedures None recorded . Surgeries None recorded . Imaging CT, angiogra m, chest, w/ contrast - Recurren t PE, s/p IVC with intermit tent SOB 2024 [facility] ([facility]), [address] [place], [address], 5 15:08:12 XR, thoracic spine, 2 view - Upper back pain, history of dextrocu rvature 2024 025 [facility] ([facility]), [address] [place], [address], 5 15:08:12 MAMMO, diagnost ic, digital, bilatera l - Bilatera l breast pain 2020 021 [facility] ([facility]), [address], [place], [address], 12:10:51 Medication Orders None recorded . Patient TargetsNo targets recorded. Patient Instructions Encounter Date Encounter Id Patient Instructions Last Modified By Organization Details Last Modified Time 08/06/2020 [id number] healthy upper back: exercises oajao Not available 08/06/2020 11:53:32 [facility] Lab s and xrays as previously ordered Follow up in 6 weeks and PRN oajao Not available 08/06/2020 11:53:44 09/17/2020 [id number] Labs, PFTS as previously ordered She has been referred elsewhere [facility] report from [facility] Follow up after her labs and her PFTS ~ 6 weeks oajao Not available 09/17/2020 10:26:02 10/27/2020 [id number] Xray, [facility] and PFTS as previously ordered Follow up in 6 months and PRN oajao Not available 10/27/2020 11:30:32 12/11/2020 [id number] healthy upper back: exercises oajao Not available 12/11/2020 15:36:52 PFTS, [facility] and xray as previously ordered Plastics Follow up in 4 months and PRN oajao Not available 12/11/2020 15:38:11 01/09/2025 [id number] body mass index: care instructions oajao Not available 01/09/2025 12:39:45 learning about healthy weight oajao Not available 01/09/2025 12:39:45 Records from her provider in [place] Labs CT chest ER with chest pain Follow up in 4 weeks oajao Not available 01/09/2025 12:40:56 Detailed visit oajao Not available 0 01/09/2025 14:00:58 Reason for Referral Plastic Surgeon Referral for Macromastia Patient desires breast reduction due to chronic upper back pain Patient desires breast reduction due to chronic upper back pain Referring Physician: Prashanth Reid, Internal Medicine, Encounter Date: 08/06/2020 Plastic Surgeon Referral for Macromastia Patient desires breast reduction due to chronic upper back pain Referring Physician: Prashanth Reid, Internal Medicine, Encounter Date: 12/11/2020 Results Created Date Observation Date Name Description Value Unit Range Abnormal Flag Note LastModifiedBy Organization Detail LastModifiedTime 10/07/19 21 10/07/2020 CBC w/ auto diff WBC 4.9 x10e3 /uL 3.4-10 .8 Not Available [facility] ([facility]) [address] [facility], [place], [address], 10/07/2020 11:11:46 10/07/19 21 10/07/2020 CBC w/ auto diff RBC 4.83 x10e6 /uL 3.77-5 .28 Not Available [facility] ([facility]) [address] [facility], [place], [address], 10/07/2020 11:11:46 10/07/19 21 10/07/2020 CBC w/ auto diff hemoglobin 13.9 g/dL 11.1-1 5.9 Not Available [facility] ([facility]) [address] [facility], [place], [address], 10/07/2020 11:11:46 10/07/19 21 10/07/2020 CBC w/ auto diff hematocrit 40.4 % 34.0-4 6.6 Not Available [facility] ([facility]) [address] [facility], [place], [address], 10/07/2020 11:11:46 10/07/19 21 10/07/2020 CBC w/ auto diff MCV 84 fL 79-97 Not Available [facility] ([facility]) [address] [facility], [place], [address], 10/07/2020 11:11:46 10/07/19 21 10/07/2020 CBC w/ auto diff MCH 28.8 pg 26.6-3 3.0 Not Available [facility] ([facility]) [address] [facility], [place], [address], 10/07/2020 11:11:46 10/07/19 21 10/07/2020 CBC w/ auto diff MCHC 34.4 g/dL 31.5-3 5.7 Not Available [facility] ([facility]) [address] [facility], [place], [address], 10/07/2020 11:11:46 10/07/19 21 10/07/2020 CBC w/ auto diff RDW 13.6 % 11.7-1 5.4 Not Available [facility] ([facility]) [address] [facility], [place], [address], 10/07/2020 11:11:46 10/07/19 21 10/07/2020 CBC w/ auto diff platelets 269 x10e3 /uL 150-45 0 Not Available [facility] ([facility]) [address] [facility], [place], [address], 10/07/2020 11:11:46 10/07/19 21 10/07/2020 CBC w/ auto diff neutrophils 56 % not estab. Not Available [facility] ([facility]) [address] [facility], [place], [address], 10/07/2020 11:11:46 10/07/19 21 10/07/2020 CBC w/ auto diff lymphs 35 % not estab. Not Available [facility] ([facility]) [address] [facility], [place], [address], 10/07/2020 11:11:46 10/07/19 21 10/07/2020 CBC w/ auto diff monocytes 8 % not estab. Not Available [facility] ([facility]) [address] [facility], [place], [address], 10/07/2020 11:11:46 10/07/19 21 10/07/2020 CBC w/ auto diff eos 1 % not estab. Not Available [facility] ([facility]) [address] [facility], [place], [address], 10/07/2020 11:11:46 10/07/19 21 10/07/2020 CBC w/ auto diff basos 0 % not estab. Not Available [facility] ([facility]) [address] [place], [address], 10/07/2020 11:11:46 10/07/19 21 10/07/2020 CBC w/ auto diff immature cells PLACEMENT MANAGER Not Available [facility] ([facility]) [address] [facility], [place], [address], 10/07/2020 11:11:46 10/07/19 21 10/07/2020 CBC w/ auto diff neutrophils (absolute) 2.7 x10e3 /uL 1.4-7. 0 Not Available [facility] ([facility]) [address] [place], [address], 10/07/2020 11:11:46 10/07/19 21 10/07/2020 CBC w/ auto diff lymphs (absolute) 1.7 x10e3 /uL 0.7-3. 1 Not Available [facility] ([facility]) [address] [place], [address], 10/07/2020 11:11:46 10/07/19 21 10/07/2020 CBC w/ auto diff monocytes(ab solute) 0.4 x10e3 /uL 0.1-0. 9 Not Available [facility] ([facility]) [address] [place], [address], 10/07/2020 11:11:46 10/07/19 21 10/07/2020 CBC w/ auto diff eos (absolute) 0.1 x10e3 /uL 0.0-0. 4 Not Available [facility] ([facility]) [address] [place], [address], 10/07/2020 11:11:46 10/07/19 21 10/07/2020 CBC w/ auto diff baso (absolute) 0.0 x10e3 /uL 0.0-0. 2 Not Available [facility] ([facility]) [address] [facility], [place], [address], 10/07/2020 11:11:46 10/07/19 21 10/07/2020 CBC w/ auto diff immature granulocytes 0 % not estab. Not Available [facility] ([facility]) [address] [facility], [place], [address], 10/07/2020 11:11:46 10/07/19 21 10/07/2020 CBC w/ auto diff immature grans (abs) 0.0 x10e3 /uL 0.0-0. 1 Not Available [facility] ([facility]) [address] [facility], [place], [address], 10/07/2020 11:11:46 10/07/19 21 10/07/2020 CBC w/ auto diff NRBC PLACEMENT MANAGER Not Available [facility] ([facility]) [address] [place], [address], 10/07/2020 11:11:46 10/07/19 21 10/07/2020 CBC w/ auto diff hematology comments: PLACEMENT MANAGER Not Available [facility] ([facility]) [address] [facility], [place], [address], 10/07/2020 11:11:46 10/07/19 21 10/07/2020 CMP, serum or plasm a glucose 99 mg/dL 65-99 Not Available [facility] ([facility]) [address] [place], [address], 10/07/2020 11:11:47 10/07/19 21 10/07/2020 CMP, serum or plasm a BUN 8 mg/dL 6-20 Not Available [facility] ([facility]) [address] [place], [address], 10/07/2020 11:11:47 10/07/19 21 10/07/2020 CMP, serum or plasm a creatinine 0.74 mg/dL 0.57-1 .00 Not Available [facility] ([facility]) [address] [place], [address], 10/07/2020 11:11:47 10/07/19 21 10/07/2020 CMP, serum or plasm a eGFR if nonafricn AM 106 mL/mi n/1.7 3 >59 Not Available [facility] ([facility]) [address] [place], [address], 10/07/2020 11:11:47 10/07/19 21 10/07/2020 CMP, serum or plasm a eGFR if africn AM 122 mL/mi n/1.7 3 >59 Not Available [facility] ([facility]) [address] [place], [address], 10/07/2020 11:11:47 10/07/19 21 10/07/2020 CMP, serum or plasm a BUN/creatini ne ratio 11 9-23 Not Available [facility] ([facility]) [address] [place], [address], 10/07/2020 11:11:47 10/07/19 21 10/07/2020 CMP, serum or plasm a sodium 135 mmol/ L 134-14 4 Not Available [facility] ([facility]) [address] [place], [address], 10/07/2020 11:11:47 10/07/19 21 10/07/2020 CMP, serum or plasm a potassium 4.0 mmol/ L 3.5-5. 2 Not Available [facility] ([facility]) [address] [place], [address], 10/07/2020 11:11:47 10/07/19 21 10/07/2020 CMP, serum or plasm a chloride 102 mmol/ L 96-106 Not Available [facility] ([facility]) [address] [facility] [place], [address], 10/07/2020 11:11:47 10/07/19 21 10/07/2020 CMP, serum or plasm a carbon dioxide, total 20 mmol/ L Not Available [facility] ([facility]) [address] [facility] [place], [address], 10/07/2020 11:11:47 10/07/19 21 10/07/2020 CMP, serum or plasm a calcium 9.3 mg/dL 8.7-10 .2 Not Available [facility] ([facility]) [address] [facility] [place], [address], 10/07/2020 11:11:47 10/07/19 21 10/07/2020 CMP, serum or plasm a protein, total 7.8 g/dL 6.0-8. 5 Not Available [facility] ([facility]) [address] [facility], [place], [address], 10/07/2020 11:11:47 10/07/19 21 10/07/2020 CMP, serum or plasm a albumin 4.2 g/dL 3.8-4. 8 Not Available [facility] ([facility]) [address] [facility] [place], [address], 10/07/2020 11:11:47 10/07/1910/07/2020 CMP, serum or plasm a globulin, total 3.6 g/dL 1.5-4. 5 Not Available [facility] ([facility]) [address] [facility] [place], [address], 10/07/2020 11:11:47 10/07/1910/07/2020 CMP, serum or plasm a A/G ratio 1.2 1.2-2. 2 Not Available [facility] ([facility]) [address] [facility] [place], [address], 10/07/2020 11:11:47 10/07/19 21 10/07/2020 CMP, serum or plasm a bilirubin, total 0.6 mg/dL 0.0-1. 2 Not Available [facility] ([facility]) [address] [place], [address], 10/07/2020 11:11:47 10/07/19 21 10/07/2020 CMP, serum or plasm a alkaline phosphatase 85 IU/L 39-117 Not Available [facility] ([facility]) [address] [place], [address], 10/07/2020 11:11:47 10/07/19 21 10/07/2020 CMP, serum or plasm a AST (SGOT) 13 IU/L 0-40 Not Available [facility] ([facility]) [address] [place], [address], 10/07/2020 11:11:47 10/07/19 21 10/07/2020 CMP, serum or plasm a ALT (SGPT) 13 IU/L 0-32 Not Available [facility] ([facility]) [address] [place], [address], 10/07/2020 11:11:47 10/07/19 21 10/07/2020 lipid panel , serum cholesterol, total 157 mg/dL 100-19 9 Not Available [facility] ([facility]) [address] [place], [address], 10/07/2020 11:11:48 10/07/19 21 10/07/2020 lipid panel , serum triglyceride s 137 mg/dL 0-149 Not Available [facility] ([facility]) [address] [place], [address], 10/07/2020 11:11:48 10/07/19 21 10/07/2020 lipid panel , serum HDL cholesterol 35 mg/dL >39 below low normal Not Available [facility] ([facility]) [address] [place], [address], 10/07/2020 11:11:48 10/07/19 21 10/07/2020 lipid panel , serum VLDL cholesterol reji 25 mg/dL 5-40 Not Available [facility] ([facility]) [address] [facility], [place], [address], 10/07/2020 11:11:48 10/07/19 21 10/07/2020 lipid panel , serum LDL chol [facility] 97 mg/dL 0-99 Not Available [facility] ([facility]) [address] [facility], [place], [address], 10/07/2020 11:11:48 10/07/19 21 10/07/2020 lipid panel , serum comment: PLACEMENT MANAGER Not Available [facility] ([facility]) [address] [facility], [place], [address], 10/07/2020 11:11:48 10/07/19 21 10/07/2020 BNP (B-ty pe natri ureti c pepti de), serum or plasm a B-type natriuretic peptide 9.9 pg/mL 0.0-10 0.0 Not Available [facility] ([facility]) [address] [facility], [place], [address], 10/07/2020 11:11:49 10/07/19 22 10/06/2021 Hepat itis B virus core IgM Ab [Pres ence] in Serum hepatitis B core IgM antibody Negati ve text: negati ve Not Available Not Available 01/14/2025 07:06:01 10/07/19 22 10/06/2021 Reagi n Ab [Pres ence] in Serum by RPR RPR screen Nonrea ctive text: nonrea ctive Not Available Not Available 01/14/2025 07:06:01 10/07/19 22 10/06/2021 Herpe s simpl ex virus 2 IgG Ab [Unit s/vol ume] in Serum herpes simplex virus 2 IgG Positi ve text: negati ve abnormal Not Available Not Available 01/14/2025 07:06:01 10/07/19 22 10/06/2021 Herpe s simpl ex virus 2 IgG Ab [Unit s/vol ume] in Serum herpes simples virus 2 IgG, quant >8.0 text: 0.0-0. 8 high Not Available Not Available 01/14/2025 07:06:01 10/07/19 22 10/06/2021 Hepat itis C virus Ab [Unit s/vol ume] in Serum hepatitis C antibody Non-re active text: non-re active This assay was perfo rmed using [employer] reage nts and test kits. Value s obtai carolyn with other assay metho ds or kits canno t be used inter [facility] . Not Available Not Available 01/14/2025 07:06:01 10/07/19 22 10/06/2021 Hepat itis B virus surfa ce Ag [Pres ence] in Serum hepatitis B surface antigen Non-re active text: non-re active This assay was perfo rmed using [employer] reage nts and test kits. Value s obtai carolyn with other assay metho ds or kits canno t be used inter [facility] . Not Available Not Available 01/14/2025 07:06:01 10/23/19 25 10/23/2024 Bacte farzana ident ified in Urine by Cultu re bacteria identified in urine by culture No growth in 1 day (detec tion level of 10,000 coloni es / ml.) Not Available Not Available 07:05:59 10/23/19 25 10/23/2024 Bacte farzana ident ified in Urine by Cultu re interpretati on and review of laboratory results Normal Not Available Not Available 12/31 07:05:59 10/23/19 25 10/22/2024 Bacte farzana ident ified in Urine by Cultu re result report SEE RESULT S BELOW Test: Cultu re: Urine Speci men Sourc e: Urine - Clean Catch Speci men Type: Urine Speci men Date: 2024 1420 Resul t Date: 2024 2016 Resul t Statu s: Final resul t Abnor mal: No Resul ting Lab: [facility] [address] [place] [address] Tel: CULTU RE ----- ----- ----- --- No growt h in 1 day (dete ction level of 10,00 0 colon ies / ml.) Not Available Not Available 01/14/2025 07:06:01 03/01/20 21 02/25/2021 laura metry No observ ation record ed. [facility] ([facility]) [address], [place], [address], 01/09/2025 13:54:56 03/05/20 21 02/25/2021 PFT, compl ete No observ ation record ed. [facility] [place] [address], [place], [address], 01/09/2025 13:58:10 05/10/20 21 05/01/2021 CT, angio gram, chest , w/ contr ast No observ ation record ed. [address], [place], [address], 01/09/2025 13:54:58 06/24/20 21 06/24/2021 CT, abdom en + pelvi s, w/o contr ast No observ ation record ed. [address], [place], [address], 01/09/2025 13:58:10 06/24/20 21 06/24/2021 US, pelvi s No observ ation record ed. [address], [place], [address], 01/09/2025 13:55:00 04/20/20 22 04/20/2022 XR, chest No observ ation record ed. [address], [place], [address], 01/09/2025 13:58:10 04/21/20 22 04/21/2022 CT, angio gram, chest , w/ contr ast No observ ation record ed. [facility] [address], [place], [address], 01/09/2025 13:58:10 Result Notes None recorded. Problems Name Problem SNOMED Code Status Onset Date Resolution Date Notes Provider Name and Address Organization Details Recorded Time Enlarged uterus 770358481 Active Derian Abbasi null, [place] [facility] 5 13:02:28 Bacterial vaginosis 872319925 Active Gustavo [place], [place] [facility] 5 08:46:27 Infection by Trichomona s 31334906 Active Gustavo [place], [place] [facility] 5 08:46:27 Obesity 262147738 Active 2016 Sharona Larson PA-C Attn: Accounting ,[address] [place], [address] , [facility] 7 14:30:22 Macromasti a 656533415 Active 2016 Sharona Larson PA-C Attn: Accounting ,[address] [place], [address] , [facility] - [facility] 7 14:43:33 Fatigue 73987564 Active 2016 Sharona Larson PA-C Attn: Accounting ,[address] [place], [address] , [facility] - [facility] 7 15:06:14 Acanthosis nigricans 183769073 Active 2016 Sharona Larson PA-C Attn: Accounting ,[address] [place], [address] , [facility] - [facility] 7 15:06:16 Chlamydial infection 443345763 Active 2016 Gustavo hein, [place] - [facility] 7 13:51:53 Body mass index 30+ - obesity 507502337 Active 2017 Sharona Larson PA-C Attn: Accounting ,[address] [facility], [place], [address] , [place] - [facility] 8 10:53:07 Edema of lower extremity 786216878 Active 2017 Sharona Larson PA-C Attn: Accounting ,[address] [facility], [place], [address] , [place] [facility] 8 13:16:23 Anemia 370636578 Active 2017 Sharona Larson PA-C Attn: Accounting ,[address] [facility], [place], [address] , [place] [facility] 8 13:17:06 Vitamin D deficiency 20673169 Active 2017 Sharona Larson PA-C Attn: Accounting ,[address] [place], [address] , [place] [facility] 8 13:17:10 Dysmenorrh ea 094494632 Active 2017 Sharona Larson PA-C Attn: Accounting ,[address] [facility], [place], [address] , [place] [facility] 8 13:17:12 Gonorrhea 28553551 Active 2017 Sharona Larson PA-C Attn: Accounting ,[address] [place], [address] , [place] [facility] 8 09:55:32 Abnormal vaginal bleeding 052623260 Active 2018 Prashanth Reid MD Attn: Accounting ,[address] [place], [address] , [place] [facility] 9 16:42:02 Pulmonary embolism 15541975 Active 2018 Prashanth Reid MD Attn: Accounting ,[address] [place], [address] , [place] [facility] 9 19:08:05 Inferior vena cava filter in situ 5417084162440 02 Active 2018 Prashanth Reid MD Attn: Accounting ,[address] [facility], [place], [address] , [place] [facility] 5 13:37:41 Influenza vaccinatio n declined 010739870 Active 2019 Prashanth Reid MD Attn: Accounting ,[address] [facility], [place], [address] , [place] [facility] 0 11:56:21 History of pulmonary embolus 276832273 Active 2019 Prashanth Reid MD Attn: Accounting ,[address] [facility], [place], [place], [address] [place] [address] , [place] [facility] 0 09:57:43 SARS-CoV-2 Active 2019 Prashanth Reid MD Attn: Accounting ,[address] [facility], [place], [place], [address] [place] [address] , [place] - [facility] 0 09:58:10 History of total hysterecto my 625932527 Active 2020 Prashanth Reid MD Attn: Accounting ,[address] [facility], [place], [address] , [place] [facility] 1 11:49:08 Thoracic back pain 872125075 Active 2020 Prashanth Reid MD Attn: Accounting ,[address] [place], [place], [address] [place] [address] , [place] - [facility] 1 15:27:49 Recurrent pulmonary embolism 014025437 Active 2024 Prashanth Reid MD Attn: Accounting ,[address] [facility], [place], [address] , [place] [facility] 5 12:28:30 Restrictiv e lung disease 19801134 Active 2024 Prashanth Reid MD Attn: Accounting ,[address] [place], [address] , [place] - [facility] 5 12:29:20 Scoliosis of thoracic spine 463469009 Active 2024 Prashanth Reid MD Attn: Accounting ,[address] [facility], [place], [address] , [place] [facility] 13:51:22 History of hysterecto my 075935495 Active 2024 Prashanth Reid MD Attn: Accounting ,[address] [facility], [place], [address] , [place] - [facility] 13:54:42 Problem Notes None recorded. Procedures Surgical History Date Name Laterality Status Provider Name and Address Organization Details Recorded Time 06/24/20 21 lysis of adhesions completed Prashanth Reid MD Attn: Accounting,[address] [facility], [place], [address], [facility] - [facility] 01/09/2025 13:55:58 06/24/20 21 colotomy completed Prashanth Reid MD Attn: Accounting,[address] [facility], [place], [address], [facility] - [facility] 01/09/2025 13:56:39 07/17/19 20 Total hysterectomy completed Prashanth Reid MD Attn: Accounting,[address] [facility], [place], [address], [place] - [facility] 08/12/2019 11:53:51 01/19/20 19 insertion of inferior vena caval filter completed Prashanth Reid MD Attn: Accounting,[address] [facility], [place], [address], [place] - [facility] 01/21/2020 09:50:42 04/13/20 17 Date of Last Pap Smear completed Lakshmi Koch MA [facility] 04/13/2017 15:03:50 08/30/19 03 Caesarean Section completed IMMANUEL Camacho [facility] 04/13/2017 15:06:21 09/15/19 01 Caesarean Section completed Lakshmi Koch MA [facility] 04/13/2017 15:06:15 07/03/18 95 I&d abscess comp/multiple completed Lakshmi Koch MA [facility] 10/31/2014 11:40:10 Imaging Results None recorded. Procedure Notes None recorded. Medical Equipment None Reported. Allergies No known drug allergies Medications Name Sig Start Date Stop Date Status Note LastModified by Organization Details LastModified Time multivitami n tablet Take 1 tablet every day by oral route. 2016 active Not Available Not Available Not Avai lable amoxicillin 500 mg capsule 09/17 completed Not Available Not Available Not Available promethazin e-DM 6.25 mg-15 mg/5 mL oral syrup Take 5 mL every 4 hours by oral route as directed for 5 days. 03/18 completed Not Available Not Available Not Available cetirizine 10 mg tablet 12/11 completed Not Available Not Available Not Available Tab-A-Tay tablet 10/23 completed Not Available Not Available Not Available azithromyci n 250 mg tablet Take 1 tablet every day by oral route for 5 days. 10/23 completed Not Available Not Available Not Available ibuprofen 800 mg tablet TAKE 1 TABLET BY MOUTH THREE TIMES DAILY FOR PAIN AND CRAMPS STARTING 2 DAYS BEORE YOUR PERIOD AND THE DURATION OF YOUR PERIOD 10/27 completed Not Available Not Available Not Available Lidocaine Viscous 2 % mucosal solution 01/20 completed Not Available Not Available Not Available hydrocodone 5 mg-acetamin ophen 325 mg tablet 01/09 completed Not Available Not Available Not Available metronidazo le 0.75 % (37.5 mg/5 gram) vaginal gel Insert 1 applicato rful every day by vaginal route at bedtime for 5 days. 10/23 completed Not Available Not Available Not Available ceftriaxone 250 mg solution for injection Take 250 mg by injection route. 08/06 completed Not Available Not Available Not Available Tylenol Arthritis Pain 650 mg tablet,exte nded release Take 2 tablets every 8 hours by oral route as needed for 15 days. 09/17 completed Not Available Not Available Not Available metronidazo le 500 mg tablet Take 4 tablets by oral route for 1 day. 01/09 completed Not Available Not Available Not Available acetaminoph en 300 mg-codeine 30 mg tablet 10/27 completed Not Available Not Available Not Available ciprofloxac in 500 mg tablet 08/12 completed Not Available Not Available Not Available Condoms-Pre m Lubricated Take 1 device as needed by miscell. route as needed. 10/23 completed Not Available Not Available Not Available Nortrel 1/35 (28) 1 mg-35 mcg tablet 01/29 completed Not Available Not Available Not Available cephalexin 500 mg capsule 01/09 completed Not Available Not Available Not Available oseltamivir 75 mg capsule Take 1 capsule twice a day by oral route for 7 days. 01/29 completed Not Available Not Available Not Available ferrous sulfate 325 mg (65 mg iron) tablet Take 1 tablet twice a day by oral route around the clock for 30 days. 01/20 completed Not Available Not Available Not Available montelukast 10 mg tablet Take 1 tablet every day by oral route as directed for 30 days. 03/18 completed Not Available Not Available Not Available ibuprofen 600 mg tablet 01/09 completed Not Available Not Available Not Available levofloxaci n 500 mg tablet 01/29 completed Not Available Not Available Not Available levofloxaci n 750 mg tablet Take 1 tablet every day by oral route for 7 days. 01/29 completed Not Available Not Available Not Available methylpredn isolone 4 mg tablets in a dose pack 12/11 completed Not Available Not Available Not Available Vitamin D2 1,250 mcg (50,000 unit) capsule Take 1 capsule every week by oral route. 01/29 completed Not Available Not Available Not Available Necon 0.535 (28) 0.5 mg-35 mcg tablet 01/29 completed Not Available Not Available Not Available diazepam 5 mg tablet 08/12 completed Not Available Not Available Not Available amoxicillin 875 mg-potassiu m clavulanate 125 mg tablet 01/20 completed Not Available Not Available Not Available enoxaparin 80 mg/0.8 mL subcutaneou s syringe INJECT 80 MG UNDER THE SKIN TWICE DAILY DIRECTED 08/05 completed Not Available Not Available Not Available enoxaparin 40 mg/0.4 mL subcutaneou s syringe 01/09 completed Not Available Not Available Not Available azithromyci n 500 mg tablet Take 2 tablets every day by oral route for 1 day. 08/06 completed Not Available Not Available Not Available Junel 1.5/30 (21) 1.5 mg-30 mcg tablet 01/29 completed Not Available Not Available Not Available Lupron Depot 11.25 mg (3 month) intramuscul ar syringe kit 01/29 completed Not Available Not Available Not Available ibuprofen 09/17 completed Not Available Not Available Not Available ferrous gluconate 324 mg (38 mg iron) tablet 01/29 completed Not Available Not Available Not Available calcium 600 mg (as carbonate)- vitamin D3 10 mcg (400 unit) tablet 10/23 completed Not Available Not Available Not Available ferrous sulfate 324 mg (65 mg iron) tablet,alex yed release 01/29 completed Not Available Not Available Not Available calcium 600 mg (as carbonate)- vitamin D3 20 mcg (800 unit) tablet Take 1 tablet twice a day by oral route for 30 days. 10/23 completed Not Available Not Available Not Available Vitals Date Recorded Body height Provider Name an d Address Organization Details Last Updated DateTime 08/06/2020 149.86 cm Mariajose Chavez MA [facility] 021 11:32:49 Date Recorded Body height Provider Name an d Address Organization Details Last Updated DateTime 09/17/2020 149.86 cm Mariajose Chavez MA [facility] 021 09:53:54 Date Recorded Body height Provider Name an d Address Organization Details Last Updated DateTime 10/27/2020 149.86 cm Mariajose Chavez MA [facility] 021 11:14:38 Date Recorded Body height Body mass index (BMI) Body weight Body temperature Oxygen saturation Heart rate Systolic And Diastolic Provider Name and Address Organization Details Last Updated DateTime 1 149.86 cm 39.7 kg/m2 40256.9 8 g 97.9 [degF] 99 % 108 /min 110/84 mm[Hg] Fernie Anne MA [facility] 1 15:24:18 Date Recorded Body height Body mass index (BMI) Body weight Heart rate Oxygen saturation Body temperature Respiratory rate Systolic And Diastolic Provider Name and Address Organization Details Last Updated DateTime 5 149.86 cm 38.5 kg/m2 97699.3 5 g 88 /min 98 % 98 [degF] 14 /min 124/86 mm[Hg] Mariajose Chavez MA [place] [facility] 12:18:10 Social History Question Answer Notes LastModified by Organizat ion Details LastModified Time Tobacco Smoking Status Never Smoker Lakshmi Koch MA [facility], [place] - [facility] 10/31/2014 11:43:02 Do You Have An Advance Directive? No Information not available 10/31/2014 How Many Years Have You Consumed Alcohol? 22 Information not available 01/09/2025 Are You Blind Or Do You Have Difficulty Seeing? No Information not available 09/17/2020 Is Blood Transfusion Acceptable In An Emergency? Yes Information not available 10/31/2014 What Is Your Level Of Caffeine Consumption? None Information not available 10/31/2014 How Much Tobacco Do You Chew? None Information not available 10/31/2014 In The 14 Days Before Symptom Onset, Have You Had Close Contact With A Laboratory-confi rmed COVID-19 While That Case Was Ill? No Information not available 10/27/2020 Have You Been To An Area Known To Be High Risk For COVID-19? Yes Information not available 10/27/2020 Are You Deaf Or Do You Have Serious Difficulty Hearing? No Information not available 09/17/2020 What Type Of Diet Are You Following? REGULAR Information not available 10/31/2014 Education 2 Year College Information not available 10/31/2014 Are There Any Guns Present In Your Home? No Information not available 09/17/2020 Live Alone Or With Others? With Others Information not available 10/31/2014 What Was The Date Of Your Most Recent Tobacco Screening? 01/09/2025 Information not available 01/09/2025 How Many Children Do You Have? 2 Information not available 10/31/2014 Performs Monthly Self-breast Exam? No Information not available 10/31/2014 Do You Use Protection During Sex? No Information not available 10/31/2014 What Is Your Relationship Status? Domestic Partner Information not available 10/31/2014 Do You Use Your Seat Belt Or Car Seat Routinely? Yes Information not available 10/27/2020 Seat Belts Used Routinely Yes Information not available 10/31/2014 Are You Sexually Active? Yes Information not available 10/31/2014 Do You Have Smoke And Carbon Monoxide Detectors In Your Home? Yes Information not available 09/17/2020 How Much Tobacco Do You Smoke? No Information not available 10/31/2014 General Stress Level Low Information not available 10/31/2014 Do You Use Sunscreen Routinely? No Information not available 10/31/2014 Has Tobacco Cessation Counseling Been Provided? No Information not available 01/29/2019 On What Date Was Tobacco Cessation Counseling Provided? 01/09/2025 Star Answered No To The Tobacco Cessation Counseling Provided Question On 01/29/2019. Information not available 01/09/2025 How Many Years Have You Smoked Tobacco? 0 Information not available 01/29/2019 Sex: Unknown Functional Status Question Answer Note LastModified by Organizat ion Details LastModified Time Do you use any illicit or recreational drugs? No Information not available 10/27/2020 What is your level of alcohol consumption? Occasional Information not available 10/31/2014 Do you or have you ever used smokeless tobacco? Never used smokeless tobacco Information not available 01/21/2020 Are you currently employed? Yes Information not available 10/31/2014 Are you able to care for yourself independently? 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 Never used electronic cigarettes Information not available 01/21/2020 What is your exercise level? None Information not available 10/31/2014 Mental Status None recorded. Family History Relationship Description Onset Age of this Age Resolved Age Notes LastModified by Organization Details LastModified Time Father History of hypertension Not available 11:40:42 Father Diabetes mellitus eewig Not available 2016 14:41:23 Sister History of hypertension Not available 11:40:42 Sister Asthma oajao Not available 12/2019 14:27:39 Mother Well adult eewig Not available 03/07/2017 14:41:41 Medical History Condition Response Heart Problems N Other N Breast Cancer N Kidney or Bladder Problems N Thyroid Problems N GI Problems N Depression N Lung Disease N Acne N Breast Problem N Eating Disorder N Anemia Y Anesthesia Complications N Headaches/Migraines Y Ovarian Cancer N Diabetes N Anxiety Disorder N Blood Transfusions N Arthritis N Polyps N Infertility N Acid Reflux (GERD) N Cancer N Stroke N Abuse/Domestic Violence N Asthma N Endometriosis N High Cholesterol N Hepatitis N Heart Disease N Fibromyalgia N Pre-Eclampsia N Hypertension N Osteoporosis N Kidney Disease N Gynecological History Statement/Question Response Abnormal Pap N Flow Moderate Date of LMP 07/03/2019 STIs/STDs N HPV Vaccine N Duration of Flow (days) 5 Age at Menarche 10 Current Control Method Hysterectom y Age at First Child 14 Frequency of Cycle (Q days) 28 Sexually Active? Y Menses Monthly Y Date of Last Pap Smear 04/13/2017 Sexual Problems? N LMP Approximate Desired Control Method None Obstetrics History GPAL:G 3 P 2 0 1 2 Type Value Multiple Births 0 Full Term 2 Induced 1 Spontaneous 0 Premature 0 Living 2 Ectopics 0 Total 3 Past Encounters Encounter ID Performer Location Encounter Start Date Encounter Closed Date Diagnosis/Indication Diagnosis SNOMED-CT Code Diagnosis ICD10 Code Diagnosis IMO Codes Diagnosis Note [id number] Derian Abbasi MD [facility] ([facility]) [address] [place] [address] 10/31/2014 11:07:21 10/31/2014 12:20:07 Gynecologic examination [id number] Enlarged uterus 877350558 [id number] Senait Bonilla MD [facility] ([facility]ult [facility]) [address] [place] [address] 03/07/2017 14:13:48 03/07/2017 14:53:25 Adult health examination 088358171 Z00.01 31YO AA female here to establish care with PCP. Her only complaints today are fatigue, which she attributes to her poor diet that has increased her SOB when exercising because she feels like she is getting more out of shape and upper back pain which she attributes to her large breasts.31 YO AA female here to establish care with PCP Obesity 912165001 E66.9 Advised 30 minutes of exercise 5 days/week Advised to not drink her calories - currently drinking 3 glasses eat minimum of Koolaid and juice Advised 3 balanced meals/day with plenty of fruits and vegetables Advised to download Mark43P al to track her calories. Everything she eats goes into that marco a Fatigue 64045366 R53.83 WIll check labs Long discussion that a lot of her fatigue likely is 2/2 diet Macromastia 028515888 N6 2 bilateral breasts that cause back pain - at least a 38GBack pain worsening over the last 2 years in the neck and upper back Will refer to breast surgery at this time for breast reduction consultati on Acanthosis nigricans 402 173312 L83 Will check a1c [id number] MD [facility] ([facility]) [address] [place] [address] 04/13/2017 14:36:43 04/13/2017 16:10:07 Gynecologic examination 44642598 Z01.419 Exposure t o sexually transmissible disorder 684267320 Z20.2 Family regine nning surveillance 668007407 Z30.09 counseled regarding BC. refusing BC Dysmenorrhea 762514091 N 94.6 Macromastia 471851463 N6 2 [id number] MD [facility] ([facility]) [address] [place] [address] 10/23/2017 10:31:57 10/23/2017 11:05:53 Body mass index 30+ - obesity 669774524 Z68.38 Advised 30 minutes of exercise 5 days/week Advised to not drink her calories Advised 3 balanced meals/day with plenty of fruits and vegetables Chlamydial infection 105 820282 A74.9 MARISSA today Anemia 654763524 D64.9 c/w iron tabletsWil l recheck in 3 months Vitamin D deficiency 347 85677 E55.9 Will recheck in 3 months Dysmenorrhea 075504266 N 94.6 Edema of l ower extremity 869856114 R60.0 bilateral anklesAdvi sed low salt dietAdvise d to purchase compressio n stockings and wear while working and on feetAdvise d to have legs elevated above heart at night to help with fluid retention Discussed fresh or frozen veggies, she is eating a lot of veggies out of a can [id number] MD [facility] ([facility]) [address] [place] [address] 10/26/2017 09:31:33 10/26/2017 10:33:01 Gonorrhea 38600675 A54.9 ceftriaxon e already ordered in previous order group and administer ed today Infection by Trichomonas 50411819 A59.9 [id number] MD [facility] ([facility]ult [facility]) [address] [place] [address] 08/06/2018 12:08:03 08/07/2018 11:14:29 Pneumonia 996156364 J18.9 patient currently still taking medication prescribed in ER. Patient encouraged to contuine taking medication RTC. if symptoms get worse [id number] MD [facility] ([facility]ult [facility]) [address] [place] [address] 01/29/2019 14:47:14 01/29/2019 15:53:59 Pulmonary embolism 99730610 I26.99 She needs to restart her Lovenox YI, it is unfortunat e that she has had no access to her Lovenox for well over 48 hours Anemia 979602433 D64.9 Electrocar diogram abnormal 811118917 R94.31 General ex amination of patient 950126302 Z00.01 Liver enzy mes level above reference range 424857050 R74.8 Uterine leiomyoma 884975 05 D25.9 Dysfunctio nal uterine bleeding 00195612 N93.8 Inferior v kandi cava filter in situ 8125164222 51293 Z95.905 [id number] MD [facility] ([facility]ult [facility]) [address] [place] [address] 03/05/2019 10:59:27 03/06/2019 08:29:21 Body mass index 30+ - obesity 903724422 Z68.35 Pulmonary embolism 89771 003 I26.99 She needs to continue her Lovenox for a minimum of 3 months.The Lovenox was restarted after her last office visit on 01/29/2019 The PA expires 04/02/2019 .She has tried and failed oral anticoagul ation which was discontinu ed as she continued to bleed vaginally and due to the shorter half life and the availabili ty of a reversal agent, Lovenox was a better option. Anemia 882937007 D64.9 Uterine leiomyoma 808699 05 D25.9 She needs A TAHI will need a note from her gynecologi st at [facility] to clarify the plan Dysfunctio nal uterine bleeding 53969832 N93.8 No further vaginal bleeding Electrocar diogram abnormal 527099853 R94.31 Her cardiology follow up is pending [id number] Prashanth Reid MD [facility] (Adult Med) [address] [place] [address] 05/03/2019 16:19:01 05/06/2019 09:07:22 Anemia 111472677 D64.9 She remains anemic (9.6/29 03/22/2019) , she really should be fully compliant with her oral iron and in view of her need for anticoagul ation this needs to be closely monitored, hence there is another order for a repeat Hb/Hct on ~ 04/21/19.. Follow up as scheduled on 05/03/2019 Influenza vaccination declined 291247736 Z28.21 Multiple bruising 829915 006 T14.8XXA [id number] Prashanth Reid MD [facility] ([facility]ult [facility]) [address] [place] [address] 06/28/2019 15:54:50 07/01/2019 09:23:23 Anemia 672759688 D64.9 Labs Influenza vaccination declined 406584440 Z28.21 Abnormal v aginal bleeding 198742414 N93.9 Another recent admission with VB, s/p 2 units of PRBC.She is to make an appointmen t with Dr Luis.I would like to think that 6 months of anticoagul ation should be more than enough Pulmonary embolism 30769 003 I26.99 She is completing the 5th month of anticoagul ation with Lovenox.Silvio erwin has tried and failed oral anticoagul ation which was discontinu ed as she continued to bleed vaginally and due to the shorter half life and the availabili ty of a reversal agent, Lovenox is the better option. Inferior v kandi cava filter in situ 6837976141 31836 Z95.876 [id number] MD [facility] ([facility]ult [facility]) [address] [place] [address] 08/12/2019 11:16:15 08/12/2019 11:52:14 Thyroid nodule 928189880 E04.1 Anemia 193386428 D64.9 Labs.Hopef ully we should be able to stop her iron soon Influenza vaccination declined 339041995 Z28.21 [id number] MD [facility] ([facility]) [address] [place] [address] 09/23/2019 09:37:04 09/24/2019 12:10:43 Thyroid nodule 291913595 E04.[address] 08/02/2019A bnormal US of the Thyroid 09/12/2019, Ti-Rads 4.She has been referred to the endocrinol ogist, she is aware that the possibilit ies include cancer [id number] MD Amber Greene [address] [place] [address] 10/29/2019 14:45:09 10/30/2019 07:56:18 Cough 84363268 R05 [id number] ALEJANDRINA Gil [address] [place] [address] 12/04/2019 13:03:08 12/05/2019 09:18:04 Suspected COVID-19 089567263 Z03.818 D/w pt the current pandemic of COVID-19 and call for social isolation in order to blunt the curve and minimize risk and spread. Encouraged patient and family to take restrictio ns seriously. They have verbalized understand ing of such. Viral syndrome 162550170 B34.9 [id number] MD [facility] ([facility]) [address] [place] [address] 01/21/2020 09:27:41 01/22/2020 07:26:04 Dyspnea on exertion 42614797 R06.09 Covid?, PE?, deconditio valeria?, CV? History of pulmonary embolus 207486283 Z86.711 PE 01/11/2019C T 08/02/2019 No PE Inferior v kandi cava filter in situ 8871006277 29512 Z95.828 Thyroid nodule 812574674 E04.[address] 08/02/2019A bnormal US of the Thyroid 09/12/2019, Ti-Rads 4.She has been referred to the endocrinol ogist in september 2019, she is aware that the possibilit ies include cancer.She has the referral with her and she was strongly encouraged to make the appointmen t SARS-CoV-2 587319262 U07 .1 [id number] MD [facility] ([facility]ult [facility]) [address] [place] [address] 02/06/2020 08:16:39 02/07/2020 09:36:06 Cardiomegaly 3202580 I51.7 Pulmonary hypertension 59326808 I27.20 Mild Pulm HTN on the TTE done in December 2018 Follow-up visit 79547160 9 Z09 Persistent cough 3176592 02 R05 Allergy?As thma? Dyspnea 499716891 R06.00 History of anemia - iron deficient 147582428 Z86.2 Hyperlipid emia screening 336254325 Z13.220 Inferior v kandi cava filter in situ 7147029689 87632 Z95.396 [id number] [facility] [address] [place] [address] 03/18/2020 08:11:55 03/23/2020 17:38:05 Cardiomegaly 7690828 I51.7 Her TTE was essentiall y WNL Influenza vaccination declined 360290084 Z28.21 [id number] MD [facility] ([facility]ult [facility]) [address] [place] [address] 0 06/05/2020 08:21:41 06/08/2020 08:18:04 Thoracic back pain 543195424 M54.6 Influenza vaccination declined 249152553 Z28.21 [id number] MD [facility] ([facility]ult [facility]) [address] [place] [address] 08/06/2020 08:20:04 08/07/2020 08:04:59 Macromastia 461183942 N62 Previously referred on 03/07/2017 Inferior v kandi cava filter in situ 0142404734 39600 Z95.828 History of pulmonary embolus 585433668 Z86.711 PE 01/11/2019C T 08/02/2019 No PE Mastodynia of bilateral breasts 3167266421 9107259 N64.4 History of total hysterectomy 863572395 Z90.710 Thoracic back pain 77308 8004 M54.6 [id number] MD [facility] ([facility]ult [facility]) [address] [place] [address] 09/17/2020 08:10:45 09/18/2020 08:59:17 Macromastia 926708015 N62 Previously referred on 03/07/2017 and again on 08/06/2020, [facility] they are not currently accepting patients. This was sent to another provider on 09/02/2020 [id number] MD [facility] ([facility]ult [facility]) [address] [place] [address] 0 10/27/2020 08:59:01 10/28/2020 10:28:24 Follow-up visit 860406901 Z09 Macromastia 916589762 N6 2 MMG as ordered As per Plastics [id number] MD [facility] ([facility]ult [facility]) [address] [place] [address] 0 12/11/2020 15:08:18 12/14/2020 09:20:06 Thoracic back pain 392570329 M54.6 Immunization advised 310 568221 Z71.9 Macromastia 519082362 N6 2 Previously referred on 03/07/2017 and 08/06/2020 [id number] MD [facility] (Adult Med) [address] [place] [address] 0 01/09/2025 12:06:17 01/10/2025 07:46:57 Thoracic back pain 567729848 M54.6 Immunization advised 310 174560 Z71.9 Recurrent pulmonary embolism 998257166 I26.99 465244 Restrictiv e lung disease 72065663 J98.4 79792 Fatigue 59705375 R53.82 958875 Twitching eye 858469936 R25.3 7342618889 General ex amination of patient 068359451 Z00.01 37904805 History of nutritional deficiency 3789893879 9104 Z86.39 46520377 Body mass index 30+ - obesity 405185653 Z68.38 013498 Inferior v kandi cava filter in situ 1387842485 48028 Z95.084 0714930 Scoliosis of thoracic spine 720955035 M41.9 54654812 History of hysterectomy 474212393 Z90.710 778115 Health Concerns Section Related Observation LastModified by Organization Detai ls LastModified Time None Recorded Concern Status LastModified by Organization Details LastModified Time None Recorded Advance Directives Directive N: Payers Insurance Date Sequence Insurance Name Policy Number Policy Hylton Covered Member ID Hylton Member ID Guarantor Name 01/09/2025 1 [facility] (MEDICAID HMO) [id number] Giles Rose [id number] Giles Rose 01/09/2025 1 [place] [facility] Giles Rose [id number] Giles Rose 05/05/2025 1 [facility] [employer]UE [employer] (PPO) [id number] Giles Rose [id number] Giles Rose 01/09/2025 1 [facility] (MEDICAID HMO) [id number] Giles Rose [id number] Giles Rose Notes Date Note Type Note Provider Name and Address Organization Details Recorded Time 08/06/19 21 text/htm l ROS as noted in the HPI Phone visit due to the Covid 19 pandemic I had started doing the physical therapy for the breast reduction, my dad was in hospice and I was his caregiver. I was just trying to see.....When I take my bra off, my breasts are hurting She was in physical therapy for her upper back pain, this was interrupted by her need to care for her father who has since . She tried to get back in but was told that she would need a new referral. She however wants to know whether she can just go and see the plastic surgeon. She has noticed bilateral breast pain with no nipple discharge. Prashanth Reid MD Attn: Accounting,[address] [facility], [place], [address], [place] [facility] 08/06/2020 13:40:33 09/18/19 21 text/htm l ROS as noted in the HPI Phone visit due to the Covid 19 pandemic They said they were not doing surgeries right now Prashanth Reid MD Attn: Accounting,[address] [facility], [place], [address], [place] [facility] 09/17/2020 10:26:53 10/28/19 21 text/htm l ROS as noted in the HPI Phone visit due to the Covid 19 pandemic I had a follow up after I did the bloodworkI did not know I needed to do the MMG, or the PFT Ms Rose is doing well, she is still waiting on a response from the Plastic surgeon about her breast reduction surgery. Prashanth Redi MD Attn: Accounting,[address] [facility], [place], [address], [place] [facility] 10/27/2020 11:57:15 12/12/19 21 text/htm l Back PainReported by PatientHPIFor quality, patient reportssharp. For severity, patient reportsworseningandsevere (8-10). For aggravating factors, patient reportsmovement/positioning. For location, patient reportspain is not radiating. For duration, patient reportschronic. For onset/timing, patient reportsrecurrent episode. For context, patient reportsprior back problems. For alleviating factors, patient reportsrest. For associated symptoms, patient reportsno fever,no weak limbs,no numbness of the legs/feet,no tingling,no incontinence, andno shortness of breath.ROS as noted in the HPI I still been having back pains with my back, the doctor that I was referred to before, they said that they were not doing the breast reduction surgeries at that time Ms Rose returns, she was contacted early this year by the plastic surgeon and told that breast reductions were on hold. She continues to have upper back, posterior neck and bilateral shoulder pain, she did not get better after physical therapy Prashanth Reid MD Attn: Accounting,[address] [facility], [place], [address], [facility] 12/11/2020 15:47:56 01/10/20 25 text/htm l Back PainReported by PatientHPIFor quality, patient reportssharp. For severity, patient reportsworsening. For aggravating factors, patient reportsmovement/positioning. For location, patient reportspain is not radiating. For duration, patient reportschronic. For onset/timing, patient reportsrecurrent episode. For context, patient reportsprior back problems. For alleviating factors, patient reportsrelieved by changing position. For associated symptoms, patient reportsno fever,no weak limbs,no numbness of the legs/feet,no tingling,no incontinence, andno shortness of breath.ROS as noted in the HPI I have an IVC filter from the [facility] have been having the back pains againI am always tired, me not having any energyMy eye is just a twitch Ms Rose was last seen on 12/11/2020 for her upper back pain and macromastia and she wasreferred to the plastic surgeon. She says that there were several delays and she never did have the surgery. She has a history of chronic anemia (ALEXANDRU) and recurrent PEs and she has an IV filter in place. She presents with fatigue, shortness of breath when she lays on the right side and twitching of the right eye. There is no chest pain and she denies any leg pain or swelling. She does not snore and there are no reported apneic episodes ER with CP 04/24/2022ER with pharyngitis /- 4 Abdominal pain, ovarian cyst06/24/2021 Lysis of adhesions, partial sigmoid colotomy, drainage of L. ovarian cyst Prashanth Reid MD Attn: Accounting,[address], [place], [address], [facility] 01/09/2025 14:01:19 OBGyn Episode Ob Episode Information Episode Created Date Number of Fetuses Patient Bloodtype Patient rh Status Prepregnancy Weight lbs Domestic Partner Domestic Partner Phone Father Name Oral Pathologist Status 04/13/20 17 1 CLOSED Fetus Data First Name Last Name Admitted to NICU Weight (g) Sex Living Outcome Pediatric Complications Fetus ID Race Codes Race Delivery Type 2863.07 2704 F Full Term [id number] Joe Calculation Initial Joe Date Initial Exam [...] Complications Tubal Sterilization Discharge Date Comments 1 [facility] ina 40 Discharge Information Feeding Method Contraceptive Method Maternal HG B and HCT Levels Ob Episode Information Episode Created Date Number of Fetuses Patient Bloodtype Patient rh Status Prepregnancy Weight lbs Domestic Partner Domestic Partner Phone Father Name Oral Pathologist Status 04/13/20 17 1 CLOSED Fetus Data First Name Last Name Admitted to NICU Weight (g) Sex Living Outcome Pediatric Complications Fetus ID Race Codes Race Delivery Type 2721.55 2 M Full Term [id number] Joe Calculation Initial Joe Date Initial Exam [...] Complications Tubal Sterilization Discharge Date Comments 3 [facility] ina 40 Discharge Information Feeding Method Contraceptive Method Maternal HG B and HCT Levels Ob Episode Information Episode Created Date Number of Fetuses Patient Bloodtype Patient rh Status Prepregnancy Weight lbs Domestic Partner Domestic Partner Phone Father Name Oral Pathologist Status 04/13/20 17 1 CLOSED Fetus Data First Name Last Name Admitted to NICU Weight (g) Sex Living Outcome Pediatric Complications Fetus ID Race Codes Race Delivery Type , Induced [id number] Joe Calculation Initial Joe Date Initial Exam [...] Post Complications Tubal Sterilization Discharge Date Comments 200 0 4 Discharge Information Feeding Method Contraceptive Method Maternal HG B and HCT Levels
[2025-06-01 06:50] LABS: Add Urine Microscopic? NO; Appearance Urine Clear (Clear); Glucose Urine UA Negative (Negative); Leukocyte Esterase Ur Negative LEU/UL (Negative); Nitrate Urine Negative (Negative); Specific Grav Ur 1.009 (1.001-1.035)
[2025-06-01 07:00] VITALS: PULSE 92; O2SAT 100
--- NOTE | 2025-06-01 07:08 | PC.NURSE ---
Patient has had a hysterectomy so bedside test is not needed
[2025-06-01 08:49] VITALS: BP 122/78; PULSE 94; RESP 18; TEMP 36.6; O2SAT 98
== END 2025-06-01 08:52 | disposition home or self-care (01) ==
PROVIDERS: Emergency Provider Emergency Medicine; PCP Internal Medicine Infectious Disease
DX: R10.31 Right lower quadrant pain (principal); Z86.711 Personal history of pulmonary embolism
CPT/HCPCS: 36415; 74177; 80053; 81003; 83690; 85025; 96374; 99284; J2270; Q9967